=== PATIENT | male | born 1955 | race Caucasian/White ===

== ENCOUNTER → 2018-04-24 14:15 | Outpatient (CLI) | payer MEDICARE, SELFPAY | PROVIDERS: Family Provider Family Medicine; PCP Family Medicine; Visit Provider Urology | DX: R97.20 Elevated prostate specific antigen [PSA] (principal) | CPT/HCPCS: 36415; 84153 ==

== ENCOUNTER → 2019-03-30 10:27 | Outpatient (CLI) | payer MEDICARE, SELFPAY ==
[2019-03-30 13:20] LABS: Prostate Specific Antigen 6.45 ng/mL (0.10-4.00)
== END ==
PROVIDERS: Family Provider Family Medicine; PCP Family Medicine; Visit Provider Urology
DX: R97.20 Elevated prostate specific antigen [PSA] (principal)
CPT/HCPCS: 36415; 84153

== ENCOUNTER 2019-09-18 17:53 | Emergency (ER) | payer MEDICARE, SELFPAY ==
--- NOTE | 2019-09-18 18:10 | ED.ABDPAIN ---
HPI - Abdominal Pain <Odilia Snow PA-C - Last Filed: 09/18/19 20:34> General Chief Complaint: Abdominal Pain Stated Complaint: RIGHT SIDE ABD PAIN Time Seen by Provider: 09/18/19 18:04 Source: patient Mode of arrival: Ambulatory Limitations: no limitations History of Present Illness HPI narrative: This 63-year-old gentleman comes to ED secondary to worsening abdominal pain. He states that this started this morning, he woke up with no appetite which is unusual, then noted some midline pain around 10:00 a.m. which spread down to the right lower quadrant a few hours later and he began to have some nausea. He states that he did not have a bowel movement yesterday (had a normal 1 Tuesday), and thought that he was constipated as he felt full when he woke up. He had taken some Flexeril a couple of days prior and that tends to constipate him. He did take a Dulcolax yesterday. He states that this afternoon he did have 3 small bowel movements which were soft. He has not vomited. He denies any fever today. He denies any chest pain or dyspnea. No cough or recent illness. He denies any new pain or swelling in his extremities. He states he has ongoing BPH symptoms but denies any acute urinary symptoms. He is visually impaired, does not think he would see blood in his stool or urine. Related Data Home Medications Medication Instructions Recorded Confirmed cholecalciferol (vitamin D3) 2,000 unit PO QDAY #0 11/29/12 09/11/19 [Vitamin D3] Previous Rx's Medication Instructions Recorded lidocaine HCl [Lidocaine Viscous] 10 ml PO Q6HP PRN #100 ml 12/05/17 buspirone 30 mg tablet See Rx Instructions .ROUTE 07/31/19 .COMPLEX #90 tablet clonazepam 1 mg tablet See Rx Instructions PO BIDP PRN 09/11/19 #60 tab codeine sulfate 30 mg tablet 30 mg PO TID PRN #90 tab 09/11/19 cyclobenzaprine 10 mg tablet 10 mg PO TID #30 tab 09/11/19 tamsulosin 0.4 mg capsule 0.4 mg PO BID #120 cap 09/11/19 prednisone 40 mg PO DAILY 7 Days #30 tab 09/18/19 Allergies Allergy/AdvReac Type Severity Reaction Status Date / Time escitalopram [ESCITALOPRAM] Allergy Mild NAUSEA Verified 09/18/19 18:21 ibuprofen [IBUPROFEN] Allergy Mild NAUSEA Verified 09/18/19 18:21 PAIN CONTRACT Allergy Unknown Uncoded 09/18/19 18:21 Review of Systems <Odilia Snow PA-C - Last Filed: 09/18/19 20:34> Review of Systems ROS Unobtainable: All systems reviewed & are unremarkable except as noted in HPI and below Patient History <Odilia Snow PA-C - Last Filed: 09/18/19 20:34> Medical History Anxiety (Chronic) Benign prostatic hyperplasia (Chronic) 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 HEENT: PERRL, EOMI, no scleral icterus NECK: Supple LUNGS: Clear to auscultation bilaterally. HEART: Rate and rhythm regular, normal S1 and S2, no S3 or S4. ABDOMEN: Soft, nondistended, bowel sounds present x 4 quadrants, no masses palpable, no hepatosplenomegaly. Tender from the epigastrium distal, increased over the right lower quadrant especially around McBurney's point, no guarding or rebound. No upper quadrant or CVAT EXTREMITIES: No edema, no calf tenderness DERMATOLOGIC: No jaundice or exanthem NEUROLOGIC: Alert and oriented with normal speech and coordination Initial Vital Signs Initial Vital Signs: Vital Signs Temperature 98.4 F 09/18/19 18:21 Pulse Rate 104 H 09/18/19 18:21 Respiratory Rate 16 09/18/19 18:21 Blood Pressure 145/105 H 09/18/19 18:21 Pulse Oximetry 97 09/18/19 18:21 <Cayla Horn DO - Last Filed: 09/19/19 03:17> Initial Vital Signs Initial Vital Signs: Vital Signs Temperature 98.4 F 09/18/19 18:21 Pulse Rate 104 H 09/18/19 18:21 Respiratory Rate 16 09/18/19 18:21 Blood Pressure 145/105 H 09/18/19 18:21 Pulse Oximetry 97 09/18/19 18:21 Course <Odilia Snow PA-C - Last Filed: 09/18/19 20:34> Course Additional Information: Reviewed CT findings with patient. He has not had similar symptoms in the past. No known exposures or evidence of infectious source, so he is in agreement with trial of prednisone, which he has taken in the past without problems. Given 1st dose this evening and he will pick more up at the pharmacy tomorrow. He states he has pain medication at home if needed but does not feel like he needs this now. He agreed to return if any acutely worsening symptoms or new symptoms such as protracted vomiting or fever. Otherwise advised short-term follow-up with PCP, preferably tomorrow but if not in the next few days to assess progress, and determine taper schedule versus changing to antibiotic as well as discuss referral for colonoscopy. In addition, reviewed finding of coincidental lung nodule noted on CT, and advised follow-up with PCP on this to schedule monitoring of this as well. He is agreeable. Review exam, lab and CT findings with attending Dr. Horn who is in agreement. Orders Ordered: ED Orders 09/18/19 18:20 Complete Blood Count AUTO DIFF Stat Comprehensive Metabolic Panel Stat Lipase Stat Partial Thromboplastin Time Stat Prothrombin Time INR Stat 09/18/19 18:42 CT abdomen pelvis w con Stat 09/18/19 19:05 Urine Microscopic Stat Discontinued Medications Sodium Chloride (Normal Saline 0.9%) 1,000 mls @ 1,000 mls/hr IV BOLUS ONE Stop: 09/18/19 20:08 Last Infusion: 09/18/19 20:31 Dose: 1,000 mls/hr Documented by: Admin: 09/18/19 19:26 Dose: 1,000 mls/hr Documented by: JEROME Ketorolac Tromethamine (Toradol) 30 mg IV NOW ONE Stop: 09/18/19 19:10 Last Admin: 09/18/19 19:25 Dose: 30 mg Documented by: JEROME Ondansetron HCl (Zofran) 4 mg IV NOW ONE Stop: 09/18/19 19:10 Last Admin: 09/18/19 19:25 Dose: 4 mg Documented by: JEROME Prednisone (Deltasone) 40 mg PO NOW ONE Stop: 09/18/19 20:20 Last Admin: 09/18/19 20:23 Dose: 40 mg Documented by: CIARA Vital Signs Vital signs: Vital Signs - 8 hr 09/18/19 18:21 09/18/19 19:09 Temperature 98.4 F Pulse Rate 104 H 102 H Respiratory Rate 16 Blood Pressure 145/105 H Blood Pressure [Left Arm] 128/89 Pulse Oximetry 97 99 <Cayla Horn, - Last Filed: 09/19/19 03:17> Orders Ordered: ED Orders 09/18/19 18:20 Complete Blood Count AUTO DIFF Stat Comprehensive Metabolic Panel Stat Lipase Stat Partial Thromboplastin Time Stat Prothrombin Time INR Stat 09/18/19 18:42 CT abdomen pelvis w con Stat 09/18/19 19:05 Urine Microscopic Stat Discontinued Medications Sodium Chloride (Normal Saline 0.9%) 1,000 mls @ 1,000 mls/hr IV BOLUS ONE Stop: 09/18/19 20:08 Last Infusion: 09/18/19 20:31 Dose: 1,000 mls/hr Documented by: Admin: 09/18/19 19:26 Dose: 1,000 mls/hr Documented by: JEROME Ketorolac Tromethamine (Toradol) 30 mg IV NOW ONE Stop: 09/18/19 19:10 Last Admin: 09/18/19 19:25 Dose: 30 mg Documented by: JEROME Ondansetron HCl (Zofran) 4 mg IV NOW ONE Stop: 09/18/19 19:10 Last Admin: 09/18/19 19:25 Dose: 4 mg Documented by: JEROME Prednisone (Deltasone) 40 mg PO NOW ONE Stop: 09/18/19 20:20 Last Admin: 09/18/19 20:23 Dose: 40 mg Documented by: CIARA Vital Signs Vital signs: Vital Signs - 8 hr 09/18/19 18:21 09/18/19 19:09 Temperature 98.4 F Pulse Rate 104 H 102 H Respiratory Rate 16 Blood Pressure 145/105 H Blood Pressure [Left Arm] 128/89 Pulse Oximetry 97 99 MDM - Abdominal Pain <Odilia Snow PA-C - Last Filed: 09/18/19 20:34> Lab Data Result diagrams: 09/18/19 18:20 09/18/19 18:20 Labs: Lab Results 09/18/19 09/18/19 09/18/19 Range/Units 18:20 18:20 18:20 WBC 13.0 H (4.5-11.0) X10^3/uL RBC 5.33 (4.5-5.9) X10^6/uL Hgb 16.3 (13.5-17.5) g/dL Hct 48.9 (41-53) % MCV 91.7 (80-100) fL MCH 30.5 (26-34) PG MCHC 33.2 (30-36) % RDW 14.1 (11.6-14.8) % Plt Count 285 (150-400) X10^3/uL Neut % (Auto) 79.6 H (50-75) % Lymph % (Auto) 13.3 L (25-40) % Mcmullen % (Auto) 5.6 (3-14) % Eos % (Auto) 0.8 L (2-4) % Baso % (Auto) 0.7 (0-2) % Neut # (Auto) 13869 H (3147-7013) /uL Lymph # (Auto) 1700 (5914-3902) /uL [place]ullen # (Auto) 700 (0-900) /uL Eos # (Auto) 100 (0-450) /uL Baso # (Auto) 100 (0-100) /uL PT 11.1 (10.1-12.7) SECONDS INR 1.0 (0.9-1.3) APTT 31 (26.4-36.2) SECONDS Sodium 136 L (137-145) mmol/L Potassium 4.2 (3.4-5.1) mmol/L Chloride 102 (98-107) mmol/L Carbon Dioxide 28 (22-32) mmol/L BUN 16 (9-20) mg/dL Creatinine 1.00 (0.66-1.25) mg/dL Estimated GFR > 60.0 (>60) mL/min BUN/Creatinine Ratio 16.0 (6-22) Glucose 115 H (80-110) mg/dL Calcium 9.6 (8.4-10.2) mg/dL Total Bilirubin 0.6 (0.2-1.3) mg/dL AST 21 (17-59) IU/L ALT 17 (<50) IU/L Alkaline Phosphatase 58 (38-126) U/L Total Protein 7.5 (6.3-8.2) g/dL Albumin 4.6 (3.5-5.0) g/dL Globulin 2.9 (1.7-4.1) g/dL Albumin/Globulin Ratio 1.6 (1.0-2.8) Lipase 100 (23-300) U/L Urine RBC (0-5/HPF) Urine WBC (0-5/HPF) Ur Squamous Epith Cells (0-5/HPF) Amorphous Sediment Urine Bacteria (None) Ur Culture Indicated? 09/18/19 Range/Units 19:05 WBC (4.5-11.0) X10^3/uL RBC (4.5-5.9) X10^6/uL Hgb (13.5-17.5) g/dL Hct (41-53) % MCV (80-100) fL MCH (26-34) PG MCHC (30-36) % RDW (11.6-14.8) % Plt Count (150-400) X10^3/uL Neut % (Auto) (50-75) % Lymph % (Auto) (25-40) % Mcmullen % (Auto) (3-14) % Eos % (Auto) (2-4) % Baso % (Auto) (0-2) % Neut # (Auto) (6040-1194) /uL Lymph # (Auto) (2890-3064) /uL Mcmullen # (Auto) (0-900) /uL Eos # (Auto) (0-450) /uL Baso # (Auto) (0-100) /uL PT (10.1-12.7) SECONDS INR (0.9-1.3) APTT (26.4-36.2) SECONDS Sodium (137-145) mmol/L Potassium (3.4-5.1) mmol/L Chloride (98-107) mmol/L Carbon Dioxide (22-32) mmol/L BUN (9-20) mg/dL Creatinine (0.66-1.25) mg/dL Estimated GFR (>60) mL/min BUN/Creatinine Ratio (6-22) Glucose (80-110) mg/dL Calcium (8.4-10.2) mg/dL Total Bilirubin (0.2-1.3) mg/dL AST (17-59) IU/L ALT (<50) IU/L Alkaline Phosphatase (38-126) U/L Total Protein (6.3-8.2) g/dL Albumin (3.5-5.0) g/dL Globulin (1.7-4.1) g/dL Albumin/Globulin Ratio (1.0-2.8) Lipase (23-300) U/L Urine RBC 0-1/hpf (0-5/HPF) Urine WBC 0-1/hpf (0-5/HPF) Ur Squamous Epith Cells 0-1 /hpf (0-5/HPF) Amorphous Sediment 1+ Urine Bacteria None seen (None) Ur Culture Indicated? Cult not indicated Point of care testing: Urine Dip Bedside Urine Glucose Negative Bedside Urine Bilirubin - Negative Bedside Urine Ketone + 15 Urine Specific [place] 1.010 Bedside Urine Occult Blood + Bedside Urine pH 6.0 Bedside Urine Protein - Negative Bedside Urine Urobilinogen - Negative Bedside Urine Nitrite - Negative Bedside Urine Leukocytes - Negative Esterase <Cayla Horn, DO - Last Filed: 09/19/19 03:17> Lab Data Attestation: I reviewed the patient's lab results. Labs: Lab Results 09/18/19 09/18/19 09/18/19 Range/Units 18:20 18:20 18:20 WBC 13.0 H (4.5-11.0) X10^3/uL RBC 5.33 (4.5-5.9) X10^6/uL Hgb 16.3 (13.5-17.5) g/dL Hct 48.9 (41-53) % MCV 91.7 (80-100) fL MCH 30.5 (26-34) PG MCHC 33.2 (30-36) % RDW 14.1 (11.6-14.8) % Plt Count 285 (150-400) X10^3/uL Neut % (Auto) 79.6 H (50-75) % Lymph % (Auto) 13.3 L (25-40) % Mcmullen % (Auto) 5.6 (3-14) % Eos % (Auto) 0.8 L (2-4) % Baso % (Auto) 0.7 (0-2) % Neut # (Auto) 45203 H (1451-0869) /uL Lymph # (Auto) 1700 (6358-6318) /uL Mcmullen # (Auto) 700 (0-900) /uL Eos # (Auto) 100 (0-450) /uL Baso # (Auto) 100 (0-100) /uL PT 11.1 (10.1-12.7) SECONDS INR 1.0 (0.9-1.3) APTT 31 (26.4-36.2) SECONDS Sodium 136 L (137-145) mmol/L Potassium 4.2 (3.4-5.1) mmol/L Chloride 102 (98-107) mmol/L Carbon Dioxide 28 (22-32) mmol/L BUN 16 (9-20) mg/dL Creatinine 1.00 (0.66-1.25) mg/dL Estimated GFR > 60.0 (>60) mL/min BUN/Creatinine Ratio 16.0 (6-22) Glucose 115 H (80-110) mg/dL Calcium 9.6 (8.4-10.2) mg/dL Total Bilirubin 0.6 (0.2-1.3) mg/dL AST 21 (17-59) IU/L ALT 17 (<50) IU/L Alkaline Phosphatase 58 (38-126) U/L Total Protein 7.5 (6.3-8.2) g/dL Albumin 4.6 (3.5-5.0) g/dL Globulin 2.9 (1.7-4.1) g/dL Albumin/Globulin Ratio 1.6 (1.0-2.8) Lipase 100 (23-300) U/L Urine RBC (0-5/HPF) Urine WBC (0-5/HPF) Ur Squamous Epith Cells (0-5/HPF) Amorphous Sediment Urine Bacteria (None) Ur Culture Indicated? 09/18/19 Range/Units 19:05 WBC (4.5-11.0) X10^3/uL RBC (4.5-5.9) X10^6/uL Hgb (13.5-17.5) g/dL Hct (41-53) % MCV (80-100) fL MCH (26-34) PG MCHC (30-36) % RDW (11.6-14.8) % Plt Count (150-400) X10^3/uL Neut % (Auto) (50-75) % Lymph % (Auto) (25-40) % Mcmullen % (Auto) (3-14) % Eos % (Auto) (2-4) % Baso % (Auto) (0-2) % Neut # (Auto) (4196-1807) /uL Lymph # (Auto) (1489-9482) /uL Mcmullen # (Auto) (0-900) /uL Eos # (Auto) (0-450) /uL Baso # (Auto) (0-100) /uL PT (10.1-12.7) SECONDS INR (0.9-1.3) APTT (26.4-36.2) SECONDS Sodium (137-145) mmol/L Potassium (3.4-5.1) mmol/L Chloride (98-107) mmol/L Carbon Dioxide (22-32) mmol/L BUN (9-20) mg/dL Creatinine (0.66-1.25) mg/dL Estimated GFR (>60) mL/min BUN/Creatinine Ratio (6-22) Glucose (80-110) mg/dL Calcium (8.4-10.2) mg/dL Total Bilirubin (0.2-1.3) mg/dL AST (17-59) IU/L ALT (<50) IU/L Alkaline Phosphatase (38-126) U/L Total Protein (6.3-8.2) g/dL Albumin (3.5-5.0) g/dL Globulin (1.7-4.1) g/dL Albumin/Globulin Ratio (1.0-2.8) Lipase (23-300) U/L Urine RBC 0-1/hpf (0-5/HPF) Urine WBC 0-1/hpf (0-5/HPF) Ur Squamous Epith Cells 0-1 /hpf (0-5/HPF) Amorphous Sediment 1+ Urine Bacteria None seen (None) Ur Culture Indicated? Cult not indicated Point of care testing: Urine Dip Bedside Urine Glucose Negative Bedside Urine Bilirubin - Negative Bedside Urine Ketone + 15 Urine Specific [place] 1.010 Bedside Urine Occult Blood + Bedside Urine pH 6.0 Bedside Urine Protein - Negative Bedside Urine Urobilinogen - Negative Bedside Urine Nitrite - Negative Bedside Urine Leukocytes - Negative Esterase MDM Narrative Medical decision making narrative: Case was discussed, patient has mildly elevated wbc, no fever and no clear signs of infectious colitis. Discussed and elected to offer patient steroids for colitis for treatment. Patient given return precautions and to follow up with pcp. Also discussed patient will need colonscopy in future after symptoms improve. Discharge Plan Departure Patient Disposition: Home Clinical Impression: Colitis Discharge Date/Time: 09/18/19 20:20 Instructions: DI for Colitis Activity Restrictions/Additional Instructions: Your CT scan today shows nonspecific inflammation in your lower bowel. Is not clear whether this is an infectious source versus some other type of inflammation. After discussion, we have decided to try prednisone for this. 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 You should start feeling better in the next few days if this is going to be helpful. If you are feeling worse or have new symptoms such as fever, you should return to the ED. You should also arrange to see your PCP preferably tomorrow but if not in the next few days so that you can change treatment if you're not feeling better. You may also benefit from a referral for a colonoscopy to evaluate this further. In addition, it was noted coincidentally that you have a small lung nodule on your scan today. These are frequent findings, so please talk to your PCP about doing follow-up for this at some point. Prescriptions: New prednisone 20 mg tablet 40 mg PO DAILY 7 Days Qty: 30 RF: 0 No Action cyclobenzaprine 10 mg tablet 10 mg PO TID Qty: 30 RF: 3 codeine sulfate 30 mg tablet 30 mg PO TID PRN (Reason: knee pain) Qty: 90 RF: 0 tamsulosin [Flomax] 0.4 mg capsule 0.4 mg PO BID Qty: 120 RF: 0 cholecalciferol (vitamin D3) [Vitamin D3] 2,000 UNIT capsule 2,000 unit PO QDAY Qty: 0 RF: 0 lidocaine HCl [Lidocaine Viscous] 100 ML solution 10 ml PO Q6HP PRNQty: 100 RF: 0 buspirone 30 mg tablet See Rx Instructions .ROUTE .COMPLEX Qty: 90 RF: 2 clonazepam [Klonopin] 1 mg tablet See Rx Instructions PO BIDP PRN (Reason: anxiety) Qty: 60 RF: 2 Referrals: Katia Cid DO [Primary Care Provider] -
[2019-09-18 18:21] VITALS: BP 145/105; PULSE 104; RESP 16; TEMP 36.9; O2SAT 97; BMI 25.8
[2019-09-18 18:30] LABS: Add Manual Diff / Slide Review NO; Basophils Absolute Auto 100 /uL (0-100); Basophils Percent Auto 0.7 % (0-2); Eosinophils Absolute Auto 100 /uL (0-450); Eosinophils Percent Auto 0.8 % (2-4); Hematocrit 48.9 % (41-53); Hemoglobin 16.3 g/dL (13.5-17.5); Lymphocytes Absolute Auto 1700 /uL (1100-4500); Lymphocytes Percent Auto 13.3 % (25-40); Mean Corpuscular HGB Conc 33.2 % (30-36); Mean Corpuscular Hemoglobin 30.5 PG (26-34); Mean Corpuscular Volume 91.7 fL (80-100); Monocytes Absolute Auto 700 /uL (0-900); Monocytes Percent Auto 5.6 % (3-14); Neutrophils Absolute Auto 10400 /uL (1500-7000); Neutrophils Percent Auto 79.6 % (50-75); Platelet Count 285 X10^3/uL (150-400); Red Blood Cell Count 5.33 X10^6/uL (4.5-5.9); Red Cell Distribution Width 14.1 % (11.6-14.8)
[2019-09-18 18:33] LABS: Prothrombin Time 11.1 SECONDS (10.1-12.7)
[2019-09-18 18:36] LABS: PTT Partial Thromboplastin Tim 31 SECONDS (26.4-36.2)
[2019-09-18 18:37] LABS: Alanine Aminotransferase 17 IU/L (<50); Albumin 4.6 g/dL (3.5-5.0); Albumin Globulin Ratio 1.6 (1.0-2.8); Alkaline Phosphatase 58 U/L (38-126); Aspartate Aminotransferase 21 IU/L (17-59); Bilirubin Total 0.6 mg/dL (0.2-1.3); Blood Urea Nitrogen 16 mg/dL (9-20); Calcium 9.6 mg/dL (8.4-10.2); Carbon Dioxide 28 mmol/L (22-32); Chloride 102 mmol/L (98-107); Estimated Glomerular Filt Rate > 60.0 mL/min (>60); Globulin 2.9 g/dL (1.7-4.1); Glucose 115 mg/dL (80-110); HEMOLYSIS 24 (0-50); Lipase 100 U/L (23-300); Potassium 4.2 mmol/L (3.4-5.1); Sodium 136 mmol/L (137-145); Total Protein 7.5 g/dL (6.3-8.2)
--- NOTE | 2019-09-18 18:42 | DI.CT.S_ITS ---
PROCEDURE: CT ABDOMEN PELVIS W CON INDICATIONS: midline and RLQ pain TECHNIQUE: After the administration of intravenous contrast, 5 mm thick sections acquired from the diaphragm to the symphysis. 5 mm coronal and sagittal reformats were acquired. For radiation dose reduction, the following was used: automated exposure control, adjustment of mA and/or kV according to patient size. COMPARISON: None. FINDINGS: Image quality: Excellent. ABDOMEN: Lung bases: 6 mm right lower lobe nodule is present on series 5 image 5. Solid organs: Liver is normal in size and enhancement. Gallbladder is unremarkable. Biliary system is non dilated. Pancreas enhances normally. Spleen is normal in size and enhancement. No adrenal nodules. Kidneys demonstrate normal size and enhancement, without hydronephrosis. Right renal cyst is noted. Peritoneum and bowel: Portions of the ascending and transverse colon demonstrate thickening. Minimal appearance of surrounding inflammatory change is present. In addition, there is a small focus of stranding within the mesenteric fat of the right lower quadrant. Nodes and vessels: No retroperitoneal or mesenteric adenopathy by size criteria. Aorta and inferior vena cava are normal in size. Miscellaneous: No ventral hernias. PELVIS: Genitourinary: Bladder wall is diffusely thickened. Prostate gland is markedly enlarged. Miscellaneous: No inguinal hernias or adenopathy. Bones: No suspicious bony lesions. No vertebral body compression fractures. IMPRESSION: 1. Mild appearance of thickening and pericolonic inflammatory change within the ascending and transverse colon. Findings are suggestive of colitis. 2. Mild focus of stranding within the mesenteric fat in the right lower quadrant, overall nonspecific and suggestive of inflammation. The appendix is not visualized. 3. 6 mm right lower lobe nodule. No priors are available for comparison. Recommend interval followup is below, as is nonspecific. Fleischner Society criteria for SOLID lung nodule followup. Nodule size (mm)Low-risk patientHigh-risk patient<6 (single or multiple)No routine followup.Optional CT at 12 months. 6-8 (single or multiple)CT at 6-12 months, then optional CT at 18-24 mo.CT at 6-12 [address], [address] CT at 18-24 months. >8 (single)CT, PET-CT, or biopsy at 3 months. Same as for low-risk pts. >8 (multiple)CT at 3-6 months, then optional CT at 18-24 mo.CT at 3-6 months, then CT at 18-24 months. Recommendations do not apply to lung cancer screening, patients with immunosuppression, or patients with known primary cancer. Dictated by: Charisse Spencer M.D. on 09/18/2019 at 19:46 Approved by: Charisse Spencer M.D. on 09/18/2019 at 19:51
[2019-09-18 19:09] VITALS: BP 128/89; PULSE 102; O2SAT 99
[2019-09-18] MEDS: ONDANSETRON 4 MG/2 ML INJ IV (19:25)
[2019-09-18] MEDS: KETOROLAC 60 MG/2 ML VIAL 30 MG IV (19:25)
[2019-09-18] MEDS: SODIUM CHLORIDE 0.9% 1,000 ML 1000 ML IV (19:26)
[2019-09-18 19:40] LABS: Bacteria Urine None Seen
[2019-09-18 19:50] LABS: Amorphous Sediment Urine 1+; Culture Indicated Urine Cult Not Indicated; RBC Urine 0-1/HPF (0-5/HPF); Squamous Epithelial Cell Urine 0-1 /HPF (0-5/HPF); WBC Urine 0-1/HPF (0-5/HPF)
[2019-09-18] MEDS: predniSONE 20 MG TABLET 40 MG PO (20:23)
== END 2019-09-18 20:20 | disposition home or self-care (01) ==
PROVIDERS: Emergency Provider Internal Medicine; Family Provider Family Medicine; PCP Family Medicine
DX: K52.9 Noninfective gastroenteritis and colitis, unspecified (principal); R11.0 Nausea; R79.89 Other specified abnormal findings of blood chemistry
CPT/HCPCS: 36415; 74177; 80053; 81003; 81015; 83690; 85025; 85610; 85730; 96361; 96374; 96375; 99283; 99284; J1885; J2405; Q9967

== ENCOUNTER → 2020-03-28 10:19 | Outpatient (CLI) | payer MEDICARE, SELFPAY ==
[2020-03-28 12:44] LABS: Prostate Specific Antigen 6.27 ng/mL (0.10-4.00)
== END ==
PROVIDERS: Family Provider Family Medicine; PCP Family Medicine; Referring Provider Urology; Visit Provider Urology
DX: R97.20 Elevated prostate specific antigen [PSA] (principal)
CPT/HCPCS: 36415; 84153

== ENCOUNTER → 2021-05-19 15:20 | Outpatient (CLI) | payer MEDICARE, SELFPAY | PROVIDERS: Family Provider Family Medicine; PCP Family Medicine; Visit Provider Physician Assistant | DX: R35.0 Frequency of micturition (principal) | CPT/HCPCS: 87086 ==

== ENCOUNTER 2021-05-19 16:06 | Emergency (ER) | payer MEDICARE, SELFPAY ==
[2021-05-19 16:17] VITALS: BP 130/89; PULSE 112; RESP 18; TEMP 36.8; O2SAT 96; BMI 24.6
[2021-05-19 16:27] LABS: Add Manual Diff / Slide Review NO; Basophils Absolute Auto 100 /uL (0-100); Basophils Percent Auto 1.1 % (0-2); Eosinophils Absolute Auto 200 /uL (0-450); Eosinophils Percent Auto 2.2 % (2-4); Hematocrit 48.8 % (41-53); Lymphocytes Absolute Auto 2300 /uL (1100-4500); Lymphocytes Percent Auto 28.1 % (25-40); Mean Corpuscular HGB Conc 32.9 % (30-36); Mean Corpuscular Hemoglobin 30.3 PG (26-34); Mean Corpuscular Volume 92.1 fL (80-100); Monocytes Absolute Auto 600 /uL (0-900); Monocytes Percent Auto 7.2 % (3-14); Neutrophils Absolute Auto 5100 /uL (1500-7000); Neutrophils Percent Auto 61.4 % (50-75); Platelet Count 290 X10^3/uL (150-400); Red Cell Distribution Width 13.8 % (11.6-14.8); White Blood Cell Count 8.3 X10^3/uL (4.5-11.0)
--- NOTE | 2021-05-19 16:28 | ED.ABDPAIN ---
HPI - Abdominal Pain General Chief Complaint: Abdominal Pain Stated Complaint: sent by [facility] Time Seen by Provider: 05/19/21 16:12 Source: patient Mode of arrival: Ambulatory Limitations: physical limitation History of Present Illness HPI narrative: 65-year-old male daily smoker with history of prostatitis, blindness presents at the request of the walk-in clinic for evaluation of frequent urination, lower abdominal pain, diarrhea, chills and poor appetite. He has become fatigued, dizzy and lightheaded, particularly with exertion. When at the walk-in clinic he is heart rate was in the 120s with exertion, this seems to improve with rest. He denies any obvious provocation, palliation or radiation of the discomfort Related Data Home Medications Medication Instructions Recorded Confirmed cholecalciferol (vitamin D3) 50 2,000 unit PO QDAY #0 11/29/12 05/19/21 mcg (2,000 unit) capsule (Vitamin D3) Previous Rx's Medication Instructions Recorded lidocaine HCl 2 % mucosal solution 10 ml PO Q6HP PRN #100 ml 12/05/17 (Lidocaine Viscous) tamsulosin 0.4 mg capsule (Flomax) 0.4 mg PO BID #120 cap 09/11/19 buspirone 30 mg tablet See Rx Instructions .ROUTE 12/04/20 .COMPLEX #90 tablet codeine sulfate 30 mg tablet 30 mg PO TID PRN #90 tab 03/13/21 hydrocodone 5 mg-acetaminophen 325 1 tab PO BEDTIME PRN #25 tab 03/13/21 mg tablet hydrocodone 5 mg-acetaminophen 325 See Rx Instructions .ROUTE 03/13/21 mg tablet .COMPLEX #25 tab cyclobenzaprine 10 mg tablet 10 mg PO TID #30 tab 04/06/21 clonazepam 1 mg tablet (Klonopin) 1 mg PO BIDP PRN #60 tab 04/08/21 hyoscyamine sulfate 0.125 mg tablet 0.125 mg PO BID-QID PRN #20 tab 05/19/21 ondansetron 4 mg disintegrating 4 mg PO TID-QID PRN #10 tab 05/19/21 tablet Allergies Allergy/AdvReac Type Severity Reaction Status Date / Time escitalopram [ESCITALOPRAM] Allergy Mild NAUSEA Verified 05/19/21 16:17 ibuprofen [IBUPROFEN] Allergy Mild NAUSEA Verified 05/19/21 16:17 PAIN CONTRACT Allergy Unknown Uncoded 05/19/21 15:35 Review of Systems Review of Systems Narrative: GENERAL: See HPI HEENT: Denies sinus pain, ear pain, sore throat, difficulty swallowing, dizziness. RESPIRATORY: Denies dyspnea, cough, wheezing, hemoptysis, sputum. CARDIOVASCULAR: Denies chest pain, palpitations, orthopnea, edema, GASTROINTESTINAL: See HPI : See HPI MUSCULOSKELETAL: denies weakness, joint pain, or bony pain SKIN: Denies rash, skin lesions, or other NEUROLOGIC: Denies weakness, headache, numbness, change in speech, confusion, seizures, incoordination. PSYCHIATRIC: No concerning psychosocial issues. 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 Well-developed patient, in mild distress. HEAD: Atraumatic. Normocephalic. EYES: Pupils equal round and reactive. Extraocular motions intact. No scleral icterus. No injection or drainage. ENT: Nose without bleeding, purulent drainage. Throat without erythema, tonsillar hypertrophy or exudate. Airway patent. NECK: Trachea midline. Non tender CARDIOVASCULAR: Tachycardic but regular rhythm without murmurs, gallops, or rubs. RESPIRATORY: Clear to auscultation. Breath sounds equal bilaterally. No wheezes, rales, or rhonchi. GASTROINTESTINAL: Abdomen soft, mild tenderness in the lower portions of the abdomen, left greater than right nondistended. EXTREMITIES: No edema or joint tenderness. BACK: Nontender without deformity or crepitance. No flank tenderness. NEURO: AOx3. SKIN: No rash or erythema of visible areas Initial Vital Signs Initial Vital Signs: Vital Signs Temperature 98.3 F 05/19/21 16:17 Pulse Rate 112 H 05/19/21 16:17 Respiratory Rate 18 05/19/21 16:17 Blood Pressure 130/89 05/19/21 16:17 Pulse Oximetry 96 05/19/21 16:17 Course Orders Ordered: ED Orders 05/19/21 16:17 Complete Blood Count AUTO DIFF Stat Comprehensive Metabolic Panel Stat Lipase Stat 05/19/21 16:20 EKG-12 Lead Stat 05/19/21 16:28 CT abdomen pelvis w con Stat Discontinued Medications Sodium Chloride (Normal Saline 0.9%) 1,000 mls @ 1,000 mls/hr IV BOLUS ONE Stop: 05/19/21 17:27 Last Infusion: 05/19/21 18:08 Dose: 0 mls/hr Documented by: Admin: 05/19/21 16:34 Dose: 1,000 mls/hr Documented by: CTRLILIANA Vital Signs Vital signs: Vital Signs - 8 hr 05/19/21 16:17 Temperature 98.3 F Pulse Rate 112 H Respiratory Rate 18 Blood Pressure 130/89 Pulse Oximetry 96 MDM - Abdominal Pain Lab Data Result diagrams: 05/19/21 16:17 05/19/21 16:17 Labs: Lab Results 05/19/21 05/19/21 Range/Units 16:17 16:17 WBC 8.3 (4.5-11.0) X10^3/uL RBC 5.30 (4.5-5.9) X10^6/uL Hgb 16.0 (13.5-17.5) g/dL Hct 48.8 (41-53) % MCV 92.1 (80-100) fL MCH 30.3 (26-34) PG MCHC 32.9 (30-36) % RDW 13.8 (11.6-14.8) % Plt Count 290 (150-400) X10^3/uL Neut % (Auto) 61.4 (50-75) % Lymph % (Auto) 28.1 (25-40) % Gibson % (Auto) 7.2 (3-14) % Eos % (Auto) 2.2 (2-4) % Baso % (Auto) 1.1 (0-2) % Neut # (Auto) 5100 (2820-2106) /uL Lymph # (Auto) 2300 (1534-0387) /uL Gibson # (Auto) 600 (0-900) /uL Eos # (Auto) 200 (0-450) /uL Baso # (Auto) 100 (0-100) /uL Sodium 139 (137-145) mmol/L Potassium 4.1 (3.4-5.1) mmol/L Chloride 108 H (98-107) mmol/L Carbon Dioxide 24 (22-32) mmol/L BUN 13 (9-20) mg/dL Creatinine 1.04 (0.66-1.25) mg/dL Estimated GFR > 60.0 (>60) mL/min BUN/Creatinine Ratio 12.5 (6-22) Glucose 117 H (80-110) mg/dL Calcium 9.9 (8.4-10.2) mg/dL Total Bilirubin 0.5 (0.2-1.3) mg/dL AST 21 (17-59) IU/L ALT 22 (<50) IU/L Alkaline Phosphatase 54 (38-126) U/L Total Protein 7.5 (6.3-8.2) g/dL Albumin 4.6 (3.5-5.0) g/dL Globulin 2.9 (1.7-4.1) g/dL Albumin/Globulin Ratio 1.6 (1.0-2.8) Lipase 121 (23-300) U/L Imaging Data CT scan - abdomen/pelvis: Radiologist's Impression: Nate Cohen M 1955 [address] [id number] Scan ReportSigned Patient: Nate Cohen [facility]#: [id number]: 5Acct:[id number]/Sex: 65 / MDate of Service: 05/19/21Loc: EDAccession Number: [id number] Procedure: CT abdomen pelvis w con Ordering Provider: King Mai D.O. PROCEDURE: CT ABDOMEN PELVIS W CON INDICATIONS: severe lower abdominal pain, diarrhea, tachycardia TECHNIQUE: After the administration of intravenous contrast, axial sections acquired from the lung bases to the pubic symphysis. Coronal and sagittal reformats were performed. For radiation dose reduction, the following was used: automated exposure control, adjustment of mA and/or kV according to patient size. COMPARISON: [facility], CT, CT ABDOMEN PELVIS W CON, 09/18/2019, 18:56. FINDINGS: Image quality: Excellent. Lung bases: There is a 6 mm nodule in the right lower lobe, unchanged in size compared to 09/18/2019. Small hiatal hernia. Heart: No significant findings. ABDOMEN: Liver: Liver is normal in size. Moderate hepatic steatosis. Gallbladder: Unremarkable. Biliary ducts: Unremarkable. Pancreas: Unremarkable. Spleen: Unremarkable. Adrenal Glands: Bilateral adrenal thickening without discrete nodules. Kidneys and Ureters: Unremarkable. Stomach and Bowel: Stomach, small bowel loops, and colon are normal in caliber. There are sigmoid diverticula. No CT findings to suggest acute diverticulitis. Peritoneum: No abnormal intraperitoneal fluid. No free air. Ventral Wall: There is a tiny fat containing umbilical hernia. Abdominal Nodes: No retroperitoneal or mesenteric adenopathy by size criteria. Vessels: Aorta and inferior vena cava are normal in size. PELVIS: Pelvic Organs: Prostate is enlarged. Bladder: There is a 5 mm stone within the dependent bladder lumen at midline. Pelvic Nodes: No enlarged lymph nodes. Miscellaneous: No hernias are seen. Bones: There is grade 1 anterolisthesis of L5 on S1 secondary to bilateral L5 pars defects. Mild levoscoliosis. Degenerative changes are noted in lumbar spine. IMPRESSION: 1. Mild sigmoid diverticulosis. No diverticulitis. 2. A 5 mm stone in the dependent bladder lumen. No kidney stones or ureteral stones. No hydronephrosis. 3. A 6 mm nodule in the right lower lobe, unchanged since 09/18/2019. Please see enclosed follow-up recommendation. 4. Hepatic steatosis. 5. Enlarged prostate. Fleischner Society criteria for SOLID lung nodule followup. Nodule size (mm)Low-risk patientHigh-risk patient?4No follow-up neededFollow-up at 12 mo; if no change, no further follow-up>1-8Pdesps-rr CT at 12 mo; if no change, no further follow-up needed.Initial follow-up CT at 6-12 mo, then 18-24 mo if no change. >6-8Initial follow-up CT at 6-12 mo, then 18-24 mo if no change. Initial follow-up CT at 3-6 mo, then 9-12 mo and 24 mo if no change. >8Follow-up CT at 3, 9, 24 mo. Or PET and/or biopsy.Same as for low-risk pts. Dictated by: Daphne Moreno M.D. on 05/19/2021 at 17:13 Approved by: Daphne Moreno M.D. on 05/19/2021 at 17:22 Discharge Plan Departure Patient Disposition: Home Clinical Impression: Diarrhea, Abdominal pain Instructions: DI for Abdominal Pain-Adult Activity Restrictions/Additional Instructions: *You have been diagnosed with [crampy abdominal pain and diarrhea. Your blood work, urine and CT scan are very reassuring] *What to do: *Please continue to take your regular medications as directed. [x ] New medication prescriptions sent to your pharmacy: [[facility] ] [ ] New medication written as a paper prescription [ ] No new medications given *Please follow up with your primary care provider in 2-3 days, call for an appointment. Let them know you were seen in the Emergency Department and that we ask that you be seen in follow up. We will electronically transmit a record of today's note if your PCP is in our system *If you do not have a primary care provider please contact the [facility] Resource line at [phone]. They will ask some questions about your medical history and help get you set up with a doctor in the community. *Return to Emergency Department if you should have any new, worsening or concerning symptoms, such as [fever greater than 101 F, shaking chills, worsening pain, persistent vomiting or other bothersome symptoms] Prescriptions: New hyoscyamine sulfate 0.125 mg tablet 0.125 mg PO BID-QID PRN (Reason: dyspepsia) Qty: 20 RF: 0 ondansetron 4 mg tablet,disintegrating 4 mg PO TID-QID PRN (Reason: nausea and vomiting) Qty: 10 RF: 0 No Action buspirone 30 mg tablet See Rx Instructions .ROUTE .COMPLEX Qty: 90 RF: 3 tamsulosin [Flomax] 0.4 mg capsule 0.4 mg PO BID Qty: 120 RF: 0 cholecalciferol (vitamin D3) [Vitamin D3] 2,000 UNIT capsule 2,000 unit PO QDAY Qty: 0 RF: 0 lidocaine HCl [Lidocaine Viscous] 100 ML solution 10 ml PO Q6HP PRNQty: 100 RF: 0 hydrocodone-acetaminophen 5-325 mg tablet 1 tab PO BEDTIME PRN (Reason: pain) Qty: 25 RF: 0 hydrocodone-acetaminophen 5-325 mg tablet See Rx Instructions .ROUTE .COMPLEX Qty: 25 RF: 0 codeine sulfate 30 mg tablet 30 mg PO TID PRN (Reason: knee pain) Qty: 90 RF: 0 cyclobenzaprine 10 mg tablet 10 mg PO TID Qty: 30 RF: 3 clonazepam [Klonopin] 1 mg tablet 1 mg PO BIDP PRN (Reason: anxiety) Qty: 60 RF: 0 Referrals: Katia Cid DO [Primary Care Provider] -
[2021-05-19] MEDS: SODIUM CHLORIDE 0.9% 1,000 ML 1000 ML IV (16:34)
[2021-05-19 16:37] LABS: Alanine Aminotransferase 22 IU/L (<50); Albumin 4.6 g/dL (3.5-5.0); Albumin Globulin Ratio 1.6 (1.0-2.8); Alkaline Phosphatase 54 U/L (38-126); Aspartate Aminotransferase 21 IU/L (17-59); BUN Creatinine Ratio 12.5 (6-22); Bilirubin Total 0.5 mg/dL (0.2-1.3); Blood Urea Nitrogen 13 mg/dL (9-20); Calcium 9.9 mg/dL (8.4-10.2); Carbon Dioxide 24 mmol/L (22-32); Chloride 108 mmol/L (98-107); Estimated Glomerular Filt Rate > 60.0 mL/min (>60); Globulin 2.9 g/dL (1.7-4.1); Glucose 117 mg/dL (80-110); HEMOLYSIS < 15 (0-50); Lipase 121 U/L (23-300); Potassium 4.1 mmol/L (3.4-5.1); Sodium 139 mmol/L (137-145); Total Protein 7.5 g/dL (6.3-8.2)
--- NOTE | 2021-05-19 18:09 | PC.NURSE ---
pt states diarrhea 2-3 times a day. the pain is lower abd and he mentions its similar to the last time he had prostatitis.
[2021-05-19 19:10] VITALS: BP 132/85; PULSE 83; O2SAT 98
== END 2021-05-19 19:11 | disposition home or self-care (01) ==
PROVIDERS: Emergency Provider Emergency Medicine; Family Provider Family Medicine; PCP Family Medicine
DX: R19.7 Diarrhea, unspecified (principal); R10.9 Unspecified abdominal pain; R00.0 Tachycardia, unspecified
CPT/HCPCS: 36415; 74177; 80053; 83690; 85025; 93005; 96360; 96361; 99284; Q9967

== ENCOUNTER → 2021-06-19 09:10 | Outpatient (CLI) | payer MEDICARE, SELFPAY ==
--- NOTE | 2021-06-19 | DI.US.S_ITS ---
PROCEDURE: US RENAL COMPLETE INDICATIONS: CALCULUS OF KIDNEY TECHNIQUE: Real-time scanning was performed of the kidneys and bladder, with image documentation. COMPARISON: [facility], CT, CT ABDOMEN PELVIS W CON, 05/19/2021, 16:42. FINDINGS: Kidneys: Kidneys are normal in size. Right kidney measures 9.7 cm long; left kidney measures 1.4 cm long. Right renal cortical thickness is 9.7 cm; left renal cortical thickness is 1.4 cm. Renal cortical echotexture is normal. No hydronephrosis or nephrolithiasis. No suspicious solid mass lesions. Bladder: Pre-void bladder volume is 364 mL. Post-void residual is 43 mL. Pre-void images demonstrate no intraluminal masses or stones. On pre-void images, bilateral ureteral jets are noted with color Doppler interrogation. (Of note, ureteral jets may not be detectable in up to 25% of cases due to insufficient differences in specific gravity between ureteral and bladder urine). Previously identified dependent bladder stone is not visualized. Miscellaneous: No free pelvic fluid. IMPRESSION: 1. No visualized renal calculi. 2. Previously identified bladder is calculus is no longer visualized. Dictated by: Charisse Spencer M.D. on 06/19/2021 at 16:30 Approved by: Charisse Spencer M.D. on 06/19/2021 at 16:32
[2021-06-21 10:24] LABS: PSA Free % 14.2 % (.); PSA, Total 8.6 ng/mL (0.0-4.0)
== END ==
PROVIDERS: Family Provider Family Medicine; PCP Family Medicine; Referring Provider Urology; Visit Provider Urology
DX: N20.0 Calculus of kidney (principal); R97.20 Elevated prostate specific antigen [PSA]
CPT/HCPCS: 36415; 76770; 84153; 84154

== ENCOUNTER → 2021-11-05 12:04 | Outpatient (CLI) | payer MEDICARE, SELFPAY ==
[2021-11-05 13:25] LABS: Alanine Aminotransferase 25 IU/L (<50); Albumin 4.3 g/dL (3.5-5.0); Albumin Globulin Ratio 1.6 (1.0-2.8); Alkaline Phosphatase 43 U/L (38-126); Aspartate Aminotransferase 23 IU/L (17-59); BUN Creatinine Ratio 17.4 (6-22); Bilirubin Total 0.4 mg/dL (0.2-1.3); Blood Urea Nitrogen 20 mg/dL (9-20); Calcium 9.2 mg/dL (8.4-10.2); Carbon Dioxide 27 mmol/L (22-32); Chloride 107 mmol/L (98-107); Cholesterol 199 mg/dL (140-199); Estimated Glomerular Filt Rate > 60.0 mL/min (>60); Globulin 2.7 g/dL (1.7-4.1); Glucose 99 mg/dL (80-110); HDL Cholesterol 61 mg/dL (40-60); HEMOLYSIS < 15 (0-50); LDL Cholesterol Calculated 127 mg/dL (<100); Potassium 4.4 mmol/L (3.4-5.1); Sodium 140 mmol/L (137-145); Triglycerides 56 mg/dL (35-150)
[2021-11-05 13:54] LABS: Testosterone 197 ng/dL (71.8-623)
[2021-11-05 14:02] LABS: TSH w/ Reflex to FT4 1.29 uIU/mL (0.47-4.68)
[2021-11-05 17:20] LABS: Vitamin D 25 Hydroxy (D3) 36.8 ng/mL (30.0-100.0)
[2021-11-06 10:26] LABS: PSA Free % 11.8 % (.); PSA, Total 11.5 ng/mL (0.0-4.0)
== END ==
PROVIDERS: Family Provider Family Medicine; PCP Family Medicine; Referring Provider Urology; Visit Provider Urology
DX: Z13.1 Encounter for screening for diabetes mellitus (principal); M17.0 Bilateral primary osteoarthritis of knee; R97.20 Elevated prostate specific antigen [PSA]; Z13.220 Encounter for screening for lipoid disorders; Z79.891 Long term (current) use of opiate analgesic; N52.9 Male erectile dysfunction, unspecified; R25.1 Tremor, unspecified
CPT/HCPCS: 36415; 80053; 80061; 82306; 84153; 84154; 84403; 84443

== ENCOUNTER → 2022-01-01 11:32 | Outpatient (CLI) | payer MEDICARE, SELFPAY ==
[2022-01-01 14:11] LABS: COVID-19 CEPHEID PCR (VTM/NP) Negative (Negative)
== END ==
PROVIDERS: Family Provider Family Medicine; PCP Family Medicine; Visit Provider Nurse Practitioner Family
DX: Z20.822 Contact with and (suspected) exposure to COVID-19 (principal)
CPT/HCPCS: C9803; U0003; U0005

== ENCOUNTER 2022-02-25 12:00 | Outpatient (RCR) | payer MEDICARE, SELFPAY ==
--- NOTE | 2022-01-12 15:39 | PT.OPPOC ---
Physical, Occupational & Speech Therapy At [facility] Current Diagnoses Pain in right knee (01/12/22) Other abnormalities of gait and mobility (01/12/22) Presence of unspecified artificial knee joint (01/12/22) Visit Care Team Role Provider Type Katia Cid DO Family Provider Physician Primary Care Provider Specialty: Family Practice Address: [address] [place] [address], [facility], [place], [address] Email: [email or web address] Rafael Delgadillo MD Attending Provider Non-Staff Referring Provider Specialty: Orthopedics Address: [address] [place] [address], [place], [address] Email: Plan Of Care PT-OP-T Assessment and Plan Start: 01/05/22 15:42 Freq: Status: Active Protocol: Document 01/12/22 10:15 AMB (Rec: 01/13/22 15:39 AMB [id number]) Physical Therapy Assessment Rehab Potential Rehabilitation Potential Good Evaluation Complexity Number of Personal Factors/Comorbidities 1-2 Number of Body Systems Impaired 4 or More Clinical Presentation at Evaluation Evolving Impairments Impairments Balance,Functional Activities, Gait,Pain,ROM,Strength Goals Three Impairment Functional movements Short Term Goal (STG) Steve will perform a full squat with good body mechanics and without an increase in baseline pain. STG Duration 4 weeks Chemist Helper Goal (LTG) Steve will perform a full squat while lifting 10# without an increase in pain to simulate lifting a horses foot so he can return to his work. LTG Duration 8 weeks Two Impairment Gait Short Term Goal (STG) Steve will walk for 6 minutes over smooth terrain without an increase in knee pain. STG Duration 4 weeks Chemist Helper Goal (LTG) Steve will safely ascend and descend 1 flight of stairs without knee pain. LTG Duration 8 weeks One Impairment ROM Short Term Goal (STG) Steve will have neutral knee extension STG Duration 4 weeks [facility] Goal (LTG) Steve will increase his knee flexion to 130 degrees actively. LTG Duration 8 weeks Assessment Summary Assessment Steve attends physical therapy with R TKA revision, he is overall quite flexible but will need to improve his knee flexion and extension. He did present with quad weakness. He was a bit hesitant in regards to exercise, stating that biking increases his bilateral knee pain and he is concerned about his left knee which he reports also needs a replacement. 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 His vision impairment will require extra attention, safety awareness. Physical Therapy Plan Frequency and Duration Frequency of Treatment 2x/Week Duration of Treatment 8 weeks Plan of Care Start Date 01/12/22 Plan of Care End Date 03/10/22 Therapeutic Interventions Therapeutic Interventions Gait Training,Home Exercise Program,Joint Mobilizations, Manual Therapy,Neuromuscular Re-education,Self-Care/Home Management,Therapeutic Activities,Therapeutic Exercises Modalities Cold Pack/Ice Massage,Electric Stimulation Next Visit Focus/Plan Next Note Type Treatment Note Next Visit Plan Start with quad strengthening, work on knee extension ROM Plan of Care Dates Plan of Care Start Date 01/12/22 Plan of Care End Date 03/10/22 Electronically Signed by: Kristen Gamez, PT 01/13/22 [id number] Please Sign and Return: I have reviewed this Plan of Care and certify that the skilled therapy services above are required to meet the patient?s needs. Physician Signature Date Printed Name and Credentials Clinical Instructor Signature Printed Name and Credentials
--- NOTE | 2022-01-12 15:39 | PT.OIE ---
Current Diagnoses Pain in right knee (01/12/22) Other abnormalities of gait and mobility (01/12/22) Presence of unspecified artificial knee joint (01/12/22) Past Medical History (Last Reviewed 11/09/21 @ 07:31 by Katia Cid DO) Anxiety Benign prostatic hyperplasia Blindness (11/21/17) Chronic knee pain Chronic prescription opiate use Depression Elevated PSA History of knee replacement Lumbar spine pain Vision disorder Past Surgical History (Last Reviewed 11/09/21 @ 07:31 by Katia Cid DO) History of knee replacement Visit Care Team Role Provider Type Katia Cid DO Family Provider Physician Primary Care Provider Specialty: Family Practice Address: [address] [place] [address], [place], [address] Email: [email or web address] Rafael Delgadillo MD Attending Provider Non-Staff Referring Provider Specialty: Orthopedics Address: [address] [place] [address], [facility] Email: Physical Therapy Initial Evaluation PT-OP-A Visit Information Start: 01/05/22 15:42 Freq: Status: Active Protocol: Document 01/12/22 10:20 AMB (Rec: 01/12/22 10:39 AMB [id number]) Out-Patient Physical Therapy Visit Information Visit Information Visit Type Initial Evaluation Visit Start Time 10:15 Visit Stop Time 11:00 Total Visit Minutes 45 Visit Number 1 PT-OP-B Current Condition Start: 01/05/22 15:42 Freq: Status: Active Protocol: Document 01/12/22 10:20 AMB (Rec: 01/12/22 10:39 AMB [id number]) Current Condition History of Current Condition Onset Date 01/04/22 Current Complaints R TKA revision History of Current Condition Nate attends PT after R TKA revision. 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 Does have pain in the left knee. No stairs, lives with his mom, his daugher drove him here today. Reports chronic back pain. Released from the hospital same day so wasn't given exercises, voices concern about over doing it. 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 Personal Factors Other Personal Factors That May Effect Blind, chronic back pain, Therapy/Recovery PT-OP-G Mobility & Gait Start: 01/05/22 15:42 Freq: Status: Active Protocol: Document 01/12/22 10:15 AMB (Rec: 01/13/22 15:04 AMB [id number]) OP Mobility Evaluation Transfers Sit to Stand independent- pt tends to put more weight on L leg OP Gait Assessment Comments Gait Comments Pt ambulates with slight step to gait pattern, tending not to go into full knee extension PT-OP-J Posture/Palpation/Skin Start: 01/05/22 15:42 Freq: Status: Active Protocol: Document 01/12/22 10:15 AMB (Rec: 01/13/22 15:04 AMB [id number]) Skin Assessment Incisional Assessment Incision Appearance/Comments Pt wearing lali hose to mid thigh, Scar is healing appropriately no redness, mild swelling around knee but not pitting in foot, no significant bruising, PT-OP-K Range of Motion Start: 01/05/22 15:42 Freq: Status: Active Protocol: Document 01/12/22 10:20 AMB (Rec: 01/12/22 10:39 AMB [id number]) Knee Goniometric Range of Motion Knee Left Patient Position Supine Flexion Active (degrees) 140 Right Patient Position Supine Flexion Active (degrees) 110 Extension Active (degrees) 3 PT-OP-M Strength Start: 01/05/22 15:42 Freq: Status: Active Protocol: Document 01/12/22 10:15 AMB (Rec: 01/13/22 15:04 AMB [id number]) Hip Strength Hip Manual Muscle Testing Right Flexion (L2) 4 Good Extension (S1) 4+ Good+ Knee Strength Knee Manual Muscle Testing Right Flexion (S2) 4+ Good+ Extension (L3) 3+ Fair+ PT-OP-Q Treatments Start: 01/05/22 15:42 Freq: Status: Active Protocol: Document 01/12/22 10:15 AMB (Rec: 01/13/22 15:05 AMB [id number]) Therapeutic Exercises Supine Exercises quad sets Side right Reps/Minutes 10 Self-Care/Home Management Treatment Education Other Education Per pt request educated pt on TENS use/setup. Pt brought personal TENS unit from home. PT-OP-T Assessment and Plan Start: 01/05/22 15:42 Freq: Status: Active Protocol: Document 01/12/22 10:15 AMB (Rec: 01/13/22 15:39 AMB [id number]) Physical Therapy Assessment Rehab Potential Rehabilitation Potential Good Evaluation Complexity Number of Personal Factors/Comorbidities 1-2 Number of Body Systems Impaired 4 or More Clinical Presentation at Evaluation Evolving Impairments Impairments Balance,Functional Activities, Gait,Pain,ROM,Strength Goals Three Impairment Functional movements Short Term Goal (STG) Steve will perform a full squat with good body mechanics and without an increase in baseline pain. STG Duration 4 weeks Associate Financial Representative Goal (LTG) Steve will perform a full squat while lifting 10# without an increase in pain to simulate lifting a horses foot so he can return to his work. LTG Duration 8 weeks Two Impairment Gait Short Term Goal (STG) Steve will walk for 6 minutes over smooth terrain without an increase in knee pain. STG Duration 4 weeks Associate Financial Representative Goal (LTG) Steve will safely ascend and descend 1 flight of stairs without knee pain. LTG Duration 8 weeks One Impairment ROM Short Term Goal (STG) Steve will have neutral knee extension STG Duration 4 weeks Associate Financial Representative Goal (LTG) Steve will increase his knee flexion to 130 degrees actively. LTG Duration 8 weeks Assessment Summary Assessment Steve attends physical therapy with R TKA revision, he is overall quite flexible but will need to improve his knee flexion and extension. He did present with quad weakness. He was a bit hesitant in regards to exercise, stating that biking increases his bilateral knee pain and he is concerned about his left knee which he reports also needs a replacement. 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 His vision impairment will require extra attention, safety awareness. Physical Therapy Plan Frequency and Duration Frequency of Treatment 2x/Week Duration of Treatment 8 weeks Plan of Care Start Date 01/12/22 Plan of Care End Date 03/10/22 Therapeutic Interventions Therapeutic Interventions Gait Training,Home Exercise Program,Joint Mobilizations, Manual Therapy,Neuromuscular Re-education,Self-Care/Home Management,Therapeutic Activities,Therapeutic Exercises Modalities Cold Pack/Ice Massage,Electric Stimulation Next Visit Focus/Plan Next Note Type Treatment Note Next Visit Plan Start with quad strengthening, work on knee extension ROM
--- NOTE | 2022-01-19 14:12 | PT.OTN ---
Current Diagnoses Pain in right knee (01/19/22) Other abnormalities of gait and mobility (01/19/22) Presence of unspecified artificial knee joint (01/19/22) Physical Therapy Treatment Note PT-OP-A Visit Information Start: 01/05/22 15:42 Freq: Status: Active Protocol: Document 01/19/22 13:15 AMB (Rec: 01/19/22 14:11 AMB [id number]) Out-Patient Physical Therapy Visit Information Visit Information Visit Type Treatment Note Visit Start Time 10:45 Visit Stop Time 11:15 Total Visit Minutes 30 Visit Number 2 PT-OP-B Current Condition Start: 01/05/22 15:42 Freq: Status: Active Protocol: Document 01/12/22 10:20 AMB (Rec: 01/12/22 10:39 AMB [id number]) Current Condition History of Current Condition Onset Date 01/04/22 Current Complaints R TKA revision History of Current Condition Nate attends PT after R TKA revision. 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 Does have pain in the left knee. No stairs, lives with his mom, his daugher drove him here today. Reports chronic back pain. Released from the hospital same day so wasn't given exercises, voices concern about over doing it. 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 Had MD appt and they are happy with his progress. PT-OP-G Mobility & Gait Start: 01/05/22 15:42 Freq: Status: Active Protocol: Document 01/12/22 10:15 AMB (Rec: 01/13/22 15:04 AMB [id number]) OP Mobility Evaluation Transfers Sit to Stand independent- pt tends to put more weight on L leg OP Gait Assessment Comments Gait Comments Pt ambulates with slight step to gait pattern, tending not to go into full knee extension PT-OP-J Posture/Palpation/Skin Start: 01/05/22 15:42 Freq: Status: Active Protocol: Document 01/12/22 10:15 AMB (Rec: 01/13/22 15:04 AMB [id number]) Skin Assessment Incisional Assessment Incision Appearance/Comments Pt wearing lali hose to mid thigh, Scar is healing appropriately no redness, mild swelling around knee but not pitting in foot, no significant bruising, PT-OP-K Range of Motion Start: 01/05/22 15:42 Freq: Status: Active Protocol: Document 01/12/22 10:20 AMB (Rec: 01/12/22 10:39 AMB [id number]) Knee Goniometric Range of Motion Knee Left Patient Position Supine Flexion Active (degrees) 140 Right Patient Position Supine Flexion Active (degrees) 110 Extension Active (degrees) 3 PT-OP-M Strength Start: 01/05/22 15:42 Freq: Status: Active Protocol: Document 01/12/22 10:15 AMB (Rec: 01/13/22 15:04 AMB [id number]) Hip Strength Hip Manual Muscle Testing Right Flexion (L2) 4 Good Extension (S1) 4+ Good+ Knee Strength Knee Manual Muscle Testing Right Flexion (S2) 4+ Good+ Extension (L3) 3+ Fair+ PT-OP-Q Treatments Start: 01/05/22 15:42 Freq: Status: Active Protocol: Document 01/19/22 13:15 AMB (Rec: 01/19/22 14:11 AMB [id number]) Cardio Equipment Recumbent Stepper (Sci-Fit) Duration (Minutes) 7 Resistance 3 Therapeutic Exercises Supine Exercises SLR Reps/Minutes 2x10 hamstring stretch Reps/Minutes 30x3 SAQ Reps/Minutes 2x10 AROM quad sets Side right Reps/Minutes 10 Sitting Exercises 1 Sitting Exercise Name LAQ Resistance AROM Comments 5- consider ankle weight next visit PT-OP-T Assessment and Plan Start: 01/05/22 15:42 Freq: Status: Active Protocol: Document 01/19/22 13:15 AMB (Rec: 01/19/22 14:11 AMB [id number]) Physical Therapy Assessment Goals Three Impairment Functional movements Short Term Goal (STG) Steve will perform a full squat with good body mechanics and without an increase in baseline pain. STG Duration 4 weeks Assistant Tennis Coach Goal (LTG) Steve will perform a full squat while lifting 10# without an increase in pain to simulate lifting a horses foot so he can return to his work. LTG Duration 8 weeks Two Impairment Gait Short Term Goal (STG) Steve will walk for 6 minutes over smooth terrain without an increase in knee pain. STG Duration 4 weeks Detention Goal (LTG) Steve will safely ascend and descend 1 flight of stairs without knee pain. LTG Duration 8 weeks One Impairment ROM Short Term Goal (STG) Steve will have neutral knee extension STG Duration 4 weeks Detention Goal (LTG) Steve will increase his knee flexion to 130 degrees actively. LTG Duration 8 weeks Assessment Summary Assessment Steve's ROM continues to improve , incision is looking appropriate, will want to work on scar tissue once more healed. He tolerated recumbant ellptical well, but felt hip flexor discomfort with SLR. Physical Therapy Plan Next Visit Focus/Plan Next Note Type Treatment Note Next Visit Plan Start with quad strengthening, work on knee extension ROM-- next visit shuttle recovery, weights with SAQ/LAQ
--- NOTE | 2022-01-21 13:09 | PT.OTN ---
Current Diagnoses Pain in right knee (01/21/22) Other abnormalities of gait and mobility (01/21/22) Presence of unspecified artificial knee joint (01/21/22) Physical Therapy Treatment Note PT-OP-A Visit Information Start: 01/05/22 15:42 Freq: Status: Active Protocol: Document 01/21/22 10:52 AMB (Rec: 01/21/22 11:09 AMB [id number]) Out-Patient Physical Therapy Visit Information Visit Information Visit Type Treatment Note Visit Start Time 10:45 Visit Stop Time 11:15 Total Visit Minutes 30 Visit Number 3 PT-OP-B Current Condition Start: 01/05/22 15:42 Freq: Status: Active Protocol: Document 01/12/22 10:20 AMB (Rec: 01/12/22 10:39 AMB [id number]) Current Condition History of Current Condition Onset Date 01/04/22 Current Complaints R TKA revision History of Current Condition Nate attends PT after R TKA revision. 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 Does have pain in the left knee. No stairs, lives with his mom, his daugher drove him here today. Reports chronic back pain. Released from the hospital same day so wasn't given exercises, voices concern about over doing it. 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 PT-OP-G Mobility & Gait Start: 01/05/22 15:42 Freq: Status: Active Protocol: Document 01/12/22 10:15 AMB (Rec: 01/13/22 15:04 AMB [id number]) OP Mobility Evaluation Transfers Sit to Stand independent- pt tends to put more weight on L leg OP Gait Assessment Comments Gait Comments Pt ambulates with slight step to gait pattern, tending not to go into full knee extension PT-OP-J Posture/Palpation/Skin Start: 01/05/22 15:42 Freq: Status: Active Protocol: Document 01/12/22 10:15 AMB (Rec: 01/13/22 15:04 AMB [id number]) Skin Assessment Incisional Assessment Incision Appearance/Comments Pt wearing lali hose to mid thigh, Scar is healing appropriately no redness, mild swelling around knee but not pitting in foot, no significant bruising, PT-OP-K Range of Motion Start: 01/05/22 15:42 Freq: Status: Active Protocol: Document 01/12/22 10:20 AMB (Rec: 01/12/22 10:39 AMB [id number]) Knee Goniometric Range of Motion Knee Left Patient Position Supine Flexion Active (degrees) 140 Right Patient Position Supine Flexion Active (degrees) 110 Extension Active (degrees) 3 PT-OP-M Strength Start: 01/05/22 15:42 Freq: Status: Active Protocol: Document 01/12/22 10:15 AMB (Rec: 01/13/22 15:04 AMB [id number]) Hip Strength Hip Manual Muscle Testing Right Flexion (L2) 4 Good Extension (S1) 4+ Good+ Knee Strength Knee Manual Muscle Testing Right Flexion (S2) 4+ Good+ Extension (L3) 3+ Fair+ PT-OP-Q Treatments Start: 01/05/22 15:42 Freq: Status: Active Protocol: Document 01/21/22 10:52 AMB (Rec: 01/21/22 11:09 AMB [id number]) Cardio Equipment Recumbent Stepper (Sci-Fit) Duration (Minutes) 7 Resistance 8 Gym Equipment Shuttle Recovery Unilateral Squats Resistance 25 Reps/Time 2x10 Therapeutic Exercises Supine Exercises quad stretch Side right Reps/Minutes 30'x2 hamstring stretch Side right Reps/Minutes 30x3 SAQ Side right Resistance 4# Reps/Minutes 2x10 PT-OP-T Assessment and Plan Start: 01/05/22 15:42 Freq: Status: Active Protocol: Document 01/21/22 10:52 AMB (Rec: 01/21/22 11:09 AMB [id number]) Physical Therapy Assessment Goals Three Impairment Functional movements Short Term Goal (STG) Steve will perform a full squat with good body mechanics and without an increase in baseline pain. STG Duration 4 weeks Correction Goal (LTG) Steve will perform a full squat while lifting 10# without an increase in pain to simulate lifting a horses foot so he can return to his work. LTG Duration 8 weeks Two Impairment Gait Short Term Goal (STG) Steve will walk for 6 minutes over smooth terrain without an increase in knee pain. STG Duration 4 weeks Visual Merchandising Associate Goal (LTG) Steve will safely ascend and descend 1 flight of stairs without knee pain. LTG Duration 8 weeks One Impairment ROM Short Term Goal (STG) Steve will have neutral knee extension STG Duration 4 weeks Visual Merchandising Associate Goal (LTG) Steve will increase his knee flexion to 130 degrees actively. LTG Duration 8 weeks Assessment Summary Assessment Tolerated shuttle recovery at 25#. SAQ at 4#. Pt concerned about irritating patellofemoral joint, so kept weights fairly low, but tolerated well. Physical Therapy Plan Next Visit Focus/Plan Next Note Type Treatment Note Next Visit Plan Start with quad strengthening, work on knee extension ROM-- weights with SAQ/LAQ
--- NOTE | 2022-01-28 09:46 | PT.OTN ---
Current Diagnoses Pain in right knee (01/28/22) Other abnormalities of gait and mobility (01/28/22) Presence of unspecified artificial knee joint (01/28/22) Physical Therapy Treatment Note PT-OP-A Visit Information Start: 01/05/22 15:42 Freq: Status: Active Protocol: Document 01/28/22 09:14 AMB (Rec: 01/28/22 09:34 AMB [id number]) Out-Patient Physical Therapy Visit Information Visit Information Visit Type Treatment Note Visit Start Time 09:00 Visit Stop Time 09:45 Total Visit Minutes 45 Visit Number 4 PT-OP-B Current Condition Start: 01/05/22 15:42 Freq: Status: Active Protocol: Document 01/12/22 10:20 AMB (Rec: 01/12/22 10:39 AMB [id number]) Current Condition History of Current Condition Onset Date 01/04/22 Current Complaints R TKA revision History of Current Condition Nate attends PT after R TKA revision. 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 Does have pain in the left knee. No stairs, lives with his mom, his daugher drove him here today. Reports chronic back pain. Released from the hospital same day so wasn't given exercises, voices concern about over doing it. 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 PT-OP-G Mobility & Gait Start: 01/05/22 15:42 Freq: Status: Active Protocol: Document 01/12/22 10:15 AMB (Rec: 01/13/22 15:04 AMB [id number]) OP Mobility Evaluation Transfers Sit to Stand independent- pt tends to put more weight on L leg OP Gait Assessment Comments Gait Comments Pt ambulates with slight step to gait pattern, tending not to go into full knee extension PT-OP-J Posture/Palpation/Skin Start: 01/05/22 15:42 Freq: Status: Active Protocol: Document 01/12/22 10:15 AMB (Rec: 01/13/22 15:04 AMB [id number]) Skin Assessment Incisional Assessment Incision Appearance/Comments Pt wearing lali hose to mid thigh, Scar is healing appropriately no redness, mild swelling around knee but not pitting in foot, no significant bruising, PT-OP-K Range of Motion Start: 01/05/22 15:42 Freq: Status: Active Protocol: Document 01/12/22 10:20 AMB (Rec: 01/12/22 10:39 AMB [id number]) Knee Goniometric Range of Motion Knee Left Patient Position Supine Flexion Active (degrees) 140 Right Patient Position Supine Flexion Active (degrees) 110 Extension Active (degrees) 3 PT-OP-M Strength Start: 01/05/22 15:42 Freq: Status: Active Protocol: Document 01/12/22 10:15 AMB (Rec: 01/13/22 15:04 AMB [id number]) Hip Strength Hip Manual Muscle Testing Right Flexion (L2) 4 Good Extension (S1) 4+ Good+ Knee Strength Knee Manual Muscle Testing Right Flexion (S2) 4+ Good+ Extension (L3) 3+ Fair+ PT-OP-Q Treatments Start: 01/05/22 15:42 Freq: Status: Active Protocol: Document 01/28/22 09:14 AMB (Rec: 01/28/22 09:34 AMB [id number]) Cardio Equipment Recumbent Elliptical (BiodStubmatic) Duration (Minutes) 10 Resistance 4 Gym Equipment Shuttle Recovery Unilateral Squats Resistance 37 Reps/Time 4x10 Therapeutic Exercises Supine Exercises SLR Reps/Minutes 2x10 hamstring stretch Side right Reps/Minutes 30x3 SAQ Side right Resistance 4# Reps/Minutes 2x10 PT-OP-T Assessment and Plan Start: 01/05/22 15:42 Freq: Status: Active Protocol: Document 01/28/22 09:14 AMB (Rec: 01/28/22 09:34 AMB [id number]) Physical Therapy Assessment Goals Three Impairment Functional movements Short Term Goal (STG) Steve will perform a full squat with good body mechanics and without an increase in baseline pain. STG Duration 4 weeks Captain Room Service Goal (LTG) Steve will perform a full squat while lifting 10# without an increase in pain to simulate lifting a horses foot so he can return to his work. LTG Duration 8 weeks Two Impairment Gait Short Term Goal (STG) Steve will walk for 6 minutes over smooth terrain without an increase in knee pain. STG Duration 4 weeks Captain Room Service Goal (LTG) Steve will safely ascend and descend 1 flight of stairs without knee pain. LTG Duration 8 weeks One Impairment ROM Short Term Goal (STG) Steve will have neutral knee extension STG Duration 4 weeks Captain Room Service Goal (LTG) Steve will increase his knee flexion to 130 degrees actively. LTG Duration 8 weeks Assessment Summary Assessment Pt tolerated increased resistance well, goal is to be able to get up from full squat, but left knee is a limiting factor for this at this point. Physical Therapy Plan Next Visit Focus/Plan Next Note Type Treatment Note Next Visit Plan Progress with quad strengthening, work on knee extension ROM-- weights with SAQ/LAQ
--- NOTE | 2022-02-02 12:39 | PT.OTN ---
Current Diagnoses Pain in right knee (02/02/22) Other abnormalities of gait and mobility (02/02/22) Presence of unspecified artificial knee joint (02/02/22) Physical Therapy Treatment Note PT-OP-A Visit Information Start: 01/05/22 15:42 Freq: Status: Active Protocol: Document 02/02/22 11:16 AMB (Rec: 02/02/22 12:37 AMB [id number]) Out-Patient Physical Therapy Visit Information Visit Information Visit Type Treatment Note Visit Start Time 11:15 Visit Stop Time 12:00 Total Visit Minutes 45 Visit Number 5 PT-OP-B Current Condition Start: 01/05/22 15:42 Freq: Status: Active Protocol: Document 01/12/22 10:20 AMB (Rec: 01/12/22 10:39 AMB [id number]) Current Condition History of Current Condition Onset Date 01/04/22 Current Complaints R TKA revision History of Current Condition Nate attends PT after R TKA revision. 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 Does have pain in the left knee. No stairs, lives with his mom, his daugher drove him here today. Reports chronic back pain. Released from the hospital same day so wasn't given exercises, voices concern about over doing it. 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 PT-OP-G Mobility & Gait Start: 01/05/22 15:42 Freq: Status: Active Protocol: Document 01/12/22 10:15 AMB (Rec: 01/13/22 15:04 AMB [id number]) OP Mobility Evaluation Transfers Sit to Stand independent- pt tends to put more weight on L leg OP Gait Assessment Comments Gait Comments Pt ambulates with slight step to gait pattern, tending not to go into full knee extension PT-OP-J Posture/Palpation/Skin Start: 01/05/22 15:42 Freq: Status: Active Protocol: Document 01/12/22 10:15 AMB (Rec: 01/13/22 15:04 AMB [id number]) Skin Assessment Incisional Assessment Incision Appearance/Comments Pt wearing lali hose to mid thigh, Scar is healing appropriately no redness, mild swelling around knee but not pitting in foot, no significant bruising, PT-OP-K Range of Motion Start: 01/05/22 15:42 Freq: Status: Active Protocol: Document 01/12/22 10:20 AMB (Rec: 01/12/22 10:39 AMB [id number]) Knee Goniometric Range of Motion Knee Left Patient Position Supine Flexion Active (degrees) 140 Right Patient Position Supine Flexion Active (degrees) 110 Extension Active (degrees) 3 PT-OP-M Strength Start: 01/05/22 15:42 Freq: Status: Active Protocol: Document 01/12/22 10:15 AMB (Rec: 01/13/22 15:04 AMB [id number]) Hip Strength Hip Manual Muscle Testing Right Flexion (L2) 4 Good Extension (S1) 4+ Good+ Knee Strength Knee Manual Muscle Testing Right Flexion (S2) 4+ Good+ Extension (L3) 3+ Fair+ PT-OP-Q Treatments Start: 01/05/22 15:42 Freq: Status: Active Protocol: Document 02/02/22 11:16 AMB (Rec: 02/02/22 12:37 AMB [id number]) Cardio Equipment Recumbent Elliptical (Biodex) Duration (Minutes) 10 Resistance 24 Gym Equipment Shuttle Recovery Unilateral Squats Resistance 50 Reps/Time 4x10 Therapeutic Exercises Sitting Exercises 1 Sitting Exercise Name sit to stand Reps/Minutes 10 Comments even weightbearing Standing Exercises 1 Standing Exercise Name mini forward lunges Reps/Minutes 2x10 2 Standing Exercise Name hip abd Resistance #2 t band Reps/Minutes 2x10 Neuro Re-Education Treatment Balance Activities balance board Comments even weightbearing PT-OP-T Assessment and Plan Start: 01/05/22 15:42 Freq: Status: Active Protocol: Document 02/02/22 11:16 AMB (Rec: 02/02/22 12:37 AMB [id number]) Physical Therapy Assessment Goals Three Impairment Functional movements Short Term Goal (STG) Steve will perform a full squat with good body mechanics and without an increase in baseline pain. STG Duration 4 weeks Centrifugal Wax Molder Goal (LTG) Steve will perform a full squat while lifting 10# without an increase in pain to simulate lifting a horses foot so he can return to his work. LTG Duration 8 weeks Two Impairment Gait Short Term Goal (STG) Steve will walk for 6 minutes over smooth terrain without an increase in knee pain. STG Duration 4 weeks Centrifugal Wax Molder Goal (LTG) Steve will safely ascend and descend 1 flight of stairs without knee pain. LTG Duration 8 weeks One Impairment ROM Short Term Goal (STG) Steve will have neutral knee extension STG Duration 4 weeks Centrifugal Wax Molder Goal (LTG) Steve will increase his knee flexion to 130 degrees actively. LTG Duration 8 weeks Assessment Summary Assessment Pt is doing better with exercises. Does continue to have some pain with deep squat , but partial squat/lunges are going well. Did have tightness in left hip after hip abduction exercises. Physical Therapy Plan Next Visit Focus/Plan Next Note Type Treatment Note Next Visit Plan Progress with quad strengthening, work on knee extension ROM-- weights with SAQ/LAQ
--- NOTE | 2022-02-05 12:37 | PT.OTN ---
Current Diagnoses Pain in right knee (02/05/22) Other abnormalities of gait and mobility (02/05/22) Presence of unspecified artificial knee joint (02/05/22) Physical Therapy Treatment Note PT-OP-A Visit Information Start: 01/05/22 15:42 Freq: Status: Active Protocol: Document 02/05/22 09:58 AMB (Rec: 02/05/22 10:34 AMB [id number]) Out-Patient Physical Therapy Visit Information Visit Information Visit Type Treatment Note Visit Start Time 09:45 Visit Stop Time 10:30 Total Visit Minutes 45 Visit Number 6 PT-OP-B Current Condition Start: 01/05/22 15:42 Freq: Status: Active Protocol: Document 01/12/22 10:20 AMB (Rec: 01/12/22 10:39 AMB [id number]) Current Condition History of Current Condition Onset Date 01/04/22 Current Complaints R TKA revision History of Current Condition Nate attends PT after R TKA revision. 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 Does have pain in the left knee. No stairs, lives with his mom, his daugher drove him here today. Reports chronic back pain. Released from the hospital same day so wasn't given exercises, voices concern about over doing it. 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 He is feeling it a little in distal quat. L TKA is happening in less than a month. PT-OP-G Mobility & Gait Start: 01/05/22 15:42 Freq: Status: Active Protocol: Document 01/12/22 10:15 AMB (Rec: 01/13/22 15:04 AMB [id number]) OP Mobility Evaluation Transfers Sit to Stand independent- pt tends to put more weight on L leg OP Gait Assessment Comments Gait Comments Pt ambulates with slight step to gait pattern, tending not to go into full knee extension PT-OP-J Posture/Palpation/Skin Start: 01/05/22 15:42 Freq: Status: Active Protocol: Document 01/12/22 10:15 AMB (Rec: 01/13/22 15:04 AMB [id number]) Skin Assessment Incisional Assessment Incision Appearance/Comments Pt wearing lali hose to mid thigh, Scar is healing appropriately no redness, mild swelling around knee but not pitting in foot, no significant bruising, PT-OP-K Range of Motion Start: 01/05/22 15:42 Freq: Status: Active Protocol: Document 01/12/22 10:20 AMB (Rec: 01/12/22 10:39 AMB [id number]) Knee Goniometric Range of Motion Knee Left Patient Position Supine Flexion Active (degrees) 140 Right Patient Position Supine Flexion Active (degrees) 110 Extension Active (degrees) 3 PT-OP-M Strength Start: 01/05/22 15:42 Freq: Status: Active Protocol: Document 01/12/22 10:15 AMB (Rec: 01/13/22 15:04 AMB [id number]) Hip Strength Hip Manual Muscle Testing Right Flexion (L2) 4 Good Extension (S1) 4+ Good+ Knee Strength Knee Manual Muscle Testing Right Flexion (S2) 4+ Good+ Extension (L3) 3+ Fair+ PT-OP-Q Treatments Start: 01/05/22 15:42 Freq: Status: Active Protocol: Document 02/05/22 09:58 AMB (Rec: 02/05/22 10:34 AMB [id number]) Cardio Equipment Recumbent Stepper (Sci-Fit) Duration (Minutes) 10 Resistance 6 Gym Equipment Shuttle Recovery Unilateral Squats Resistance 50>62 Reps/Time 4x10 Therapeutic Exercises Sitting Exercises 1 Sitting Exercise Name squats Reps/Minutes 20 Comments at railing Manual Therapy Treatment Soft Tissue Mobilization scar mobilization Mobilization Type Myofascial Release,Strumming, Sustained Pressure PT-OP-T Assessment and Plan Start: 01/05/22 15:42 Freq: Status: Active Protocol: Document 02/05/22 12:18 AMB (Rec: 02/05/22 12:29 [facility] [id number]) Physical Therapy Assessment Goals Three Impairment Functional movements Short Term Goal (STG) Steve will perform a full squat with good body mechanics and without an increase in baseline pain. STG Duration 4 weeks Group Home Goal (LTG) Steve will perform a full squat while lifting 10# without an increase in pain to simulate lifting a horses foot so he can return to his work. LTG Duration 8 weeks Two Impairment Gait Short Term Goal (STG) Steve will walk for 6 minutes over smooth terrain without an increase in knee pain. STG Duration 4 weeks Group Home Goal (LTG) Steve will safely ascend and descend 1 flight of stairs without knee pain. LTG Duration 8 weeks One Impairment ROM Short Term Goal (STG) Steve will have neutral knee extension STG Duration 4 weeks Group Home Goal (LTG) Steve will increase his knee flexion to 130 degrees actively. LTG Duration 8 weeks Assessment Summary Assessment Nate was concerned about some crepitus under patella with knee flexion. He does have good patellar mobility. 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 Physical Therapy Plan Next Visit Focus/Plan Next Note Type Treatment Note Next Visit Plan Progress with quad strengthening, work on knee extension ROM-- weights with SAQ/LAQ
--- NOTE | 2022-02-08 14:28 | PT.OTN ---
Current Diagnoses Pain in right knee (02/08/22) Other abnormalities of gait and mobility (02/08/22) Presence of unspecified artificial knee joint (02/08/22) Physical Therapy Treatment Note PT-OP-A Visit Information Start: 01/05/22 15:42 Freq: Status: Active Protocol: Document 02/08/22 10:30 AMB (Rec: 02/08/22 11:22 AMB [id number]) Out-Patient Physical Therapy Visit Information Visit Information Visit Type Treatment Note Visit Start Time 10:30 Visit Stop Time 11:15 Total Visit Minutes 45 Visit Number 7 PT-OP-B Current Condition Start: 01/05/22 15:42 Freq: Status: Active Protocol: Document 01/12/22 10:20 AMB (Rec: 01/12/22 10:39 AMB [id number]) Current Condition History of Current Condition Onset Date 01/04/22 Current Complaints R TKA revision History of Current Condition Nate attends PT after R TKA revision. 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 Does have pain in the left knee. No stairs, lives with his mom, his daugher drove him here today. Reports chronic back pain. Released from the hospital same day so wasn't given exercises, voices concern about over doing it. 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 PT-OP-G Mobility & Gait Start: 01/05/22 15:42 Freq: Status: Active Protocol: Document 01/12/22 10:15 AMB (Rec: 01/13/22 15:04 AMB [id number]) OP Mobility Evaluation Transfers Sit to Stand independent- pt tends to put more weight on L leg OP Gait Assessment Comments Gait Comments Pt ambulates with slight step to gait pattern, tending not to go into full knee extension PT-OP-J Posture/Palpation/Skin Start: 01/05/22 15:42 Freq: Status: Active Protocol: Document 01/12/22 10:15 AMB (Rec: 01/13/22 15:04 AMB [id number]) Skin Assessment Incisional Assessment Incision Appearance/Comments Pt wearing lali hose to mid thigh, Scar is healing appropriately no redness, mild swelling around knee but not pitting in foot, no significant bruising, PT-OP-K Range of Motion Start: 01/05/22 15:42 Freq: Status: Active Protocol: Document 01/12/22 10:20 AMB (Rec: 01/12/22 10:39 AMB [id number]) Knee Goniometric Range of Motion Knee Left Patient Position Supine Flexion Active (degrees) 140 Right Patient Position Supine Flexion Active (degrees) 110 Extension Active (degrees) 3 PT-OP-M Strength Start: 01/05/22 15:42 Freq: Status: Active Protocol: Document 01/12/22 10:15 AMB (Rec: 01/13/22 15:04 AMB [id number]) Hip Strength Hip Manual Muscle Testing Right Flexion (L2) 4 Good Extension (S1) 4+ Good+ Knee Strength Knee Manual Muscle Testing Right Flexion (S2) 4+ Good+ Extension (L3) 3+ Fair+ PT-OP-Q Treatments Start: 01/05/22 15:42 Freq: Status: Active Protocol: Document 02/08/22 10:30 AMB (Rec: 02/08/22 11:22 AMB [id number]) Cardio Equipment Recumbent Elliptical (Biodex) Duration (Minutes) 10 Resistance 7 Gym Equipment Shuttle Recovery Unilateral Squats Details R LE Resistance 25>32>50>62>75 Reps/Time 1x12 ea Therapeutic Exercises Supine Exercises SLR Reps/Minutes 2x10 hamstring stretch Side right Reps/Minutes 30x3 Manual Therapy Treatment Soft Tissue Mobilization scar mobilization Mobilization Type Myofascial Release,Strumming, Sustained Pressure PT-OP-T Assessment and Plan Start: 01/05/22 15:42 Freq: Status: Active Protocol: Document 02/08/22 10:30 AMB (Rec: 02/08/22 13:00 [facility] [id number]) Physical Therapy Assessment Goals Three Impairment Functional movements Short Term Goal (STG) Steve will perform a full squat with good body mechanics and without an increase in baseline pain. STG Duration 4 weeks Snf Goal (LTG) Steve will perform a full squat while lifting 10# without an increase in pain to simulate lifting a horses foot so he can return to his work. LTG Duration 8 weeks Two Impairment Gait Short Term Goal (STG) Steve will walk for 6 minutes over smooth terrain without an increase in knee pain. STG Duration 4 weeks Cashier Assistant Goal (LTG) Steve will safely ascend and descend 1 flight of stairs without knee pain. LTG Duration 8 weeks One Impairment ROM Short Term Goal (STG) Steve will have neutral knee extension STG Duration 4 weeks Cashier Assistant Goal (LTG) Steve will increase his knee flexion to 130 degrees actively. LTG Duration 8 weeks Assessment Summary Assessment Nate tolerated strengthening of R LE today, was careful not to irritate L LE given his concern after last visit. Physical Therapy Plan Next Visit Focus/Plan Next Note Type Treatment Note Next Visit Plan Progress with strengthening but careful with L LE. Continue to work on scar tissue.
--- NOTE | 2022-02-11 12:06 | PT.OTN ---
Current Diagnoses Pain in right knee (02/11/22) Other abnormalities of gait and mobility (02/11/22) Presence of unspecified artificial knee joint (02/11/22) Physical Therapy Treatment Note PT-OP-A Visit Information Start: 01/05/22 15:42 Freq: Status: Active Protocol: Document 02/11/22 11:16 MA (Rec: 02/11/22 12:05 MA [id number]) Out-Patient Physical Therapy Visit Information Visit Information Visit Type Treatment Note Visit Start Time 11:15 Visit Stop Time 12:00 Total Visit Minutes 45 Visit Number 8 Number of SENIOR LOGISTICS MANAGER Visits 1 PT-OP-B Current Condition Start: 01/05/22 15:42 Freq: Status: Active Protocol: Document 01/12/22 10:20 AMB (Rec: 01/12/22 10:39 AMB [id number]) Current Condition History of Current Condition Onset Date 01/04/22 Current Complaints R TKA revision History of Current Condition Nate attends PT after R TKA revision. 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 Does have pain in the left knee. No stairs, lives with his mom, his daugher drove him here today. Reports chronic back pain. Released from the hospital same day so wasn't given exercises, voices concern about over doing it. 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 PT-OP-G Mobility & Gait Start: 01/05/22 15:42 Freq: Status: Active Protocol: Document 01/12/22 10:15 AMB (Rec: 01/13/22 15:04 AMB [id number]) OP Mobility Evaluation Transfers Sit to Stand independent- pt tends to put more weight on L leg OP Gait Assessment Comments Gait Comments Pt ambulates with slight step to gait pattern, tending not to go into full knee extension PT-OP-J Posture/Palpation/Skin Start: 01/05/22 15:42 Freq: Status: Active Protocol: Document 01/12/22 10:15 AMB (Rec: 01/13/22 15:04 AMB [id number]) Skin Assessment Incisional Assessment Incision Appearance/Comments Pt wearing lali hose to mid thigh, Scar is healing appropriately no redness, mild swelling around knee but not pitting in foot, no significant bruising, PT-OP-K Range of Motion Start: 01/05/22 15:42 Freq: Status: Active Protocol: Document 01/12/22 10:20 AMB (Rec: 01/12/22 10:39 AMB [id number]) Knee Goniometric Range of Motion Knee Left Patient Position Supine Flexion Active (degrees) 140 Right Patient Position Supine Flexion Active (degrees) 110 Extension Active (degrees) 3 PT-OP-M Strength Start: 01/05/22 15:42 Freq: Status: Active Protocol: Document 01/12/22 10:15 AMB (Rec: 01/13/22 15:04 AMB [id number]) Hip Strength Hip Manual Muscle Testing Right Flexion (L2) 4 Good Extension (S1) 4+ Good+ Knee Strength Knee Manual Muscle Testing Right Flexion (S2) 4+ Good+ Extension (L3) 3+ Fair+ PT-OP-Q Treatments Start: 01/05/22 15:42 Freq: Status: Active Protocol: Document 02/11/22 11:16 MA (Rec: 02/11/22 12:05 MA [id number]) Cardio Equipment Recumbent Elliptical (BiodeTukTuk) Duration (Minutes) 10 Resistance 7 Seat Position 9 Gym Equipment Shuttle Recovery Unilateral Squats Details R LE Resistance 37>50>62>75 Reps/Time 1x12 ea Therapeutic Exercises Supine Exercises SLR Reps/Minutes x8 Comments pt prefers performing small circles during hold Manual Therapy Treatment Soft Tissue Mobilization scar mobilization Body Location RLE scar and distal quads Mobilization Type Myofascial Release,Strumming, Sustained Pressure Body Position Supine PT-OP-T Assessment and Plan Start: 01/05/22 15:42 Freq: Status: Active Protocol: Document 02/11/22 11:16 MA (Rec: 02/11/22 12:05 MA [id number]) Physical Therapy Assessment Goals Three Impairment Functional movements Short Term Goal (STG) Steve will perform a full squat with good body mechanics and without an increase in baseline pain. STG Duration 4 weeks [facility] Goal (LTG) Steve will perform a full squat while lifting 10# without an increase in pain to simulate lifting a horses foot so he can return to his work. LTG Duration 8 weeks Two Impairment Gait Short Term Goal (STG) Steve will walk for 6 minutes over smooth terrain without an increase in knee pain. STG Duration 4 weeks Orthotic/Prosthetic Practitioner Goal (LTG) Steve will safely ascend and descend 1 flight of stairs without knee pain. LTG Duration 8 weeks One Impairment ROM Short Term Goal (STG) Steve will have neutral knee extension STG Duration 4 weeks [facility] Goal (LTG) Steve will increase his knee flexion to 130 degrees actively. LTG Duration 8 weeks Assessment Summary Assessment Pt has no pain with exercises today and has good R knee AROM . He reports doing HEP at home . Discussed working on performing HEP on bilateral LEs as much as possible to keep up strength of LLE before surgery next month. Physical Therapy Plan Frequency and Duration Frequency of Treatment 2x/Week Duration of Treatment 8 weeks Plan of Care Start Date 01/12/22 Plan of Care End Date 03/10/22 Therapeutic Interventions Therapeutic Interventions Gait Training,Home Exercise Program,Joint Mobilizations, Manual Therapy,Neuromuscular Re-education,Self-Care/Home Management,Therapeutic Activities,Therapeutic Exercises Modalities Cold Pack/Ice Massage,Electric Stimulation Next Visit Focus/Plan Next Note Type Treatment Note Next Visit Plan Progress with strengthening but careful with L LE. Continue to work on scar tissue.
--- NOTE | 2022-02-15 15:47 | PT.OTN ---
Current Diagnoses Pain in right knee (02/15/22) Other abnormalities of gait and mobility (02/15/22) Presence of unspecified artificial knee joint (02/15/22) Physical Therapy Treatment Note PT-OP-A Visit Information Start: 01/05/22 15:42 Freq: Status: Active Protocol: Document 02/15/22 10:45 AMB (Rec: 02/15/22 11:13 AMB [id number]) Out-Patient Physical Therapy Visit Information Visit Information Visit Type Treatment Note Visit Start Time 10:45 Visit Stop Time 11:15 Total Visit Minutes 30 Visit Number 9 PT-OP-B Current Condition Start: 01/05/22 15:42 Freq: Status: Active Protocol: Document 01/12/22 10:20 AMB (Rec: 01/12/22 10:39 AMB [id number]) Current Condition History of Current Condition Onset Date 01/04/22 Current Complaints R TKA revision History of Current Condition Nate attends PT after R TKA revision. 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 Does have pain in the left knee. No stairs, lives with his mom, his daugher drove him here today. Reports chronic back pain. Released from the hospital same day so wasn't given exercises, voices concern about over doing it. 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 PT-OP-G Mobility & Gait Start: 01/05/22 15:42 Freq: Status: Active Protocol: Document 01/12/22 10:15 AMB (Rec: 01/13/22 15:04 AMB [id number]) OP Mobility Evaluation Transfers Sit to Stand independent- pt tends to put more weight on L leg OP Gait Assessment Comments Gait Comments Pt ambulates with slight step to gait pattern, tending not to go into full knee extension PT-OP-J Posture/Palpation/Skin Start: 01/05/22 15:42 Freq: Status: Active Protocol: Document 01/12/22 10:15 AMB (Rec: 01/13/22 15:04 AMB [id number]) Skin Assessment Incisional Assessment Incision Appearance/Comments Pt wearing lali hose to mid thigh, Scar is healing appropriately no redness, mild swelling around knee but not pitting in foot, no significant bruising, PT-OP-K Range of Motion Start: 01/05/22 15:42 Freq: Status: Active Protocol: Document 01/12/22 10:20 AMB (Rec: 01/12/22 10:39 AMB [id number]) Knee Goniometric Range of Motion Knee Left Patient Position Supine Flexion Active (degrees) 140 Right Patient Position Supine Flexion Active (degrees) 110 Extension Active (degrees) 3 PT-OP-M Strength Start: 01/05/22 15:42 Freq: Status: Active Protocol: Document 01/12/22 10:15 AMB (Rec: 01/13/22 15:04 AMB [id number]) Hip Strength Hip Manual Muscle Testing Right Flexion (L2) 4 Good Extension (S1) 4+ Good+ Knee Strength Knee Manual Muscle Testing Right Flexion (S2) 4+ Good+ Extension (L3) 3+ Fair+ PT-OP-Q Treatments Start: 01/05/22 15:42 Freq: Status: Active Protocol: Document 02/15/22 10:45 AMB (Rec: 02/15/22 11:13 AMB [id number]) Cardio Equipment Recumbent Elliptical (Biodex) Duration (Minutes) 10 Resistance 7 Seat Position 9 Gym Equipment Shuttle Recovery Unilateral Squats Details R LE Resistance 37>50>75 Reps/Time 15 at 37, 30 at 50, 6 at 75 Therapeutic Exercises Standing Exercises 1 Standing Exercise Name squats at railing Reps/Minutes 10 Comments full per pt request PT-OP-T Assessment and Plan Start: 01/05/22 15:42 Freq: Status: Active Protocol: Document 02/15/22 10:45 AMB (Rec: 02/15/22 11:13 AMB [id number]) Physical Therapy Assessment Assessment Summary Assessment Pt doing well with progressing strengthening, quads to fatigue with higher resistance . Physical Therapy Plan Next Visit Focus/Plan Next Note Type Treatment Note Next Visit Plan Progress with strengthening but careful with Agustin VALDEZ
--- NOTE | 2022-02-18 12:02 | PT.OTN ---
Current Diagnoses Pain in right knee (02/18/22) Other abnormalities of gait and mobility (02/18/22) Presence of unspecified artificial knee joint (02/18/22) Physical Therapy Treatment Note PT-OP-A Visit Information Start: 01/05/22 15:42 Freq: Status: Active Protocol: Document 02/18/22 11:16 MA (Rec: 02/18/22 12:02 MA [id number]) Out-Patient Physical Therapy Visit Information Visit Information Visit Type Treatment Note Visit Start Time 11:15 Visit Stop Time 12:00 Total Visit Minutes 45 Visit Number 10 Number of PARTS DATA WRITER Visits 1 PT-OP-B Current Condition Start: 01/05/22 15:42 Freq: Status: Active Protocol: Document 01/12/22 10:20 AMB (Rec: 01/12/22 10:39 AMB [id number]) Current Condition History of Current Condition Onset Date 01/04/22 Current Complaints R TKA revision History of Current Condition Nate attends PT after R TKA revision. 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 Does have pain in the left knee. No stairs, lives with his mom, his daugher drove him here today. Reports chronic back pain. Released from the hospital same day so wasn't given exercises, voices concern about over doing it. 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 He reports he has pain when sitting in full squat on heels . L full knee replacement sx scheduled for March 01. PT-OP-G Mobility & Gait Start: 01/05/22 15:42 Freq: Status: Active Protocol: Document 01/12/22 10:15 AMB (Rec: 01/13/22 15:04 AMB [id number]) OP Mobility Evaluation Transfers Sit to Stand independent- pt tends to put more weight on L leg OP Gait Assessment Comments Gait Comments Pt ambulates with slight step to gait pattern, tending not to go into full knee extension PT-OP-J Posture/Palpation/Skin Start: 01/05/22 15:42 Freq: Status: Active Protocol: Document 01/12/22 10:15 AMB (Rec: 01/13/22 15:04 AMB [id number]) Skin Assessment Incisional Assessment Incision Appearance/Comments Pt wearing lali hose to mid thigh, Scar is healing appropriately no redness, mild swelling around knee but not pitting in foot, no significant bruising, PT-OP-K Range of Motion Start: 01/05/22 15:42 Freq: Status: Active Protocol: Document 01/12/22 10:20 AMB (Rec: 01/12/22 10:39 AMB [id number]) Knee Goniometric Range of Motion Knee Left Patient Position Supine Flexion Active (degrees) 140 Right Patient Position Supine Flexion Active (degrees) 110 Extension Active (degrees) 3 PT-OP-M Strength Start: 01/05/22 15:42 Freq: Status: Active Protocol: Document 01/12/22 10:15 AMB (Rec: 01/13/22 15:04 AMB [id number]) Hip Strength Hip Manual Muscle Testing Right Flexion (L2) 4 Good Extension (S1) 4+ Good+ Knee Strength Knee Manual Muscle Testing Right Flexion (S2) 4+ Good+ Extension (L3) 3+ Fair+ PT-OP-Q Treatments Start: 01/05/22 15:42 Freq: Status: Active Protocol: Document 02/18/22 11:16 MA (Rec: 02/18/22 12:02 MA [id number]) Cardio Equipment Recumbent Elliptical ([employer]) Duration (Minutes) 10 Resistance 7 Seat Position 9 Gym Equipment Shuttle Recovery Unilateral Squats Details R LE Resistance 37>50>75 Reps/Time 15, 15, 10 Therapeutic Exercises Standing Exercises 1 Standing Exercise Name squats at railing Reps/Minutes 15 Comments full heel to glutes per pt request Manual Therapy Treatment Soft Tissue Mobilization scar mobilization Body Location RLE scar and distal quads Mobilization Type Myofascial Release,Strumming, Sustained Pressure Body Position Supine PT-OP-T Assessment and Plan Start: 01/05/22 15:42 Freq: Status: Active Protocol: Document 02/18/22 11:16 MA (Rec: 02/18/22 12:02 MA [id number]) Physical Therapy Assessment Goals Three Impairment Functional movements Short Term Goal (STG) Steve will perform a full squat with good body mechanics and without an increase in baseline pain. STG Duration 4 weeks Residential Goal (LTG) Steve will perform a full squat while lifting 10# without an increase in pain to simulate lifting a horses foot so he can return to his work. LTG Duration 8 weeks Two Impairment Gait Short Term Goal (STG) Steve will walk for 6 minutes over smooth terrain without an increase in knee pain. STG Duration 4 weeks Journalism Professor Goal (LTG) Steve will safely ascend and descend 1 flight of stairs without knee pain. LTG Duration 8 weeks One Impairment ROM Short Term Goal (STG) Steve will have neutral knee extension STG Duration 4 weeks Journalism Professor Goal (LTG) Steve will increase his knee flexion to 130 degrees actively. LTG Duration 8 weeks Assessment Summary Assessment Pt has full R knee flexion and extension and is able to perform full squat where glutes rest on heels without increased pain today. He feels some tightness from R knee scar tissue but feels scar mobs in PT have been helping. Encouraged pt to continue HEP bilaterally to prepare for L knee surgery scheduled in two weeks. Physical Therapy Plan Frequency and Duration Frequency of Treatment 2x/Week Duration of Treatment 8 weeks Plan of Care Start Date 01/12/22 Plan of Care End Date 03/10/22 Therapeutic Interventions Therapeutic Interventions Gait Training,Home Exercise Program,Joint Mobilizations, Manual Therapy,Neuromuscular Re-education,Self-Care/Home Management,Therapeutic Activities,Therapeutic Exercises Modalities Cold Pack/Ice Massage,Electric Stimulation Next Visit Focus/Plan Next Note Type Treatment Note Next Visit Plan Progress with strengthening but careful with L LE.
--- NOTE | 2022-02-22 12:08 | PT.OTN ---
Current Diagnoses Pain in right knee (02/22/22) Other abnormalities of gait and mobility (02/22/22) Presence of unspecified artificial knee joint (02/22/22) Physical Therapy Treatment Note PT-OP-A Visit Information Start: 01/05/22 15:42 Freq: Status: Active Protocol: Document 02/22/22 10:45 AMB (Rec: 02/22/22 11:17 AMB [id number]) Out-Patient Physical Therapy Visit Information Visit Information Visit Type Treatment Note Visit Start Time 10:45 Visit Stop Time 11:15 Total Visit Minutes 45 Visit Number 11 PT-OP-B Current Condition Start: 01/05/22 15:42 Freq: Status: Active Protocol: Document 01/12/22 10:20 AMB (Rec: 01/12/22 10:39 AMB [id number]) Current Condition History of Current Condition Onset Date 01/04/22 Current Complaints R TKA revision History of Current Condition Nate attends PT after R TKA revision. 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 Does have pain in the left knee. No stairs, lives with his mom, his daugher drove him here today. Reports chronic back pain. Released from the hospital same day so wasn't given exercises, voices concern about over doing it. 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 Personal Factors Other Personal Factors That May Effect Blind, chronic back pain, Therapy/Recovery PT-OP-C Subjective Start: 01/05/22 15:42 Freq: Status: Active Protocol: Document 02/22/22 10:45 AMB (Rec: 02/22/22 11:17 AMB [id number]) OP-PT Subjective Patient Comments Patient Comments Pt has been working on full squats PT-OP-G Mobility & Gait Start: 01/05/22 15:42 Freq: Status: Active Protocol: Document 01/12/22 10:15 AMB (Rec: 01/13/22 15:04 AMB [id number]) OP Mobility Evaluation Transfers Sit to Stand independent- pt tends to put more weight on L leg OP Gait Assessment Comments Gait Comments Pt ambulates with slight step to gait pattern, tending not to go into full knee extension PT-OP-J Posture/Palpation/Skin Start: 01/05/22 15:42 Freq: Status: Active Protocol: Document 01/12/22 10:15 AMB (Rec: 01/13/22 15:04 AMB [id number]) Skin Assessment Incisional Assessment Incision Appearance/Comments Pt wearing lali hose to mid thigh, Scar is healing appropriately no redness, mild swelling around knee but not pitting in foot, no significant bruising, PT-OP-K Range of Motion Start: 01/05/22 15:42 Freq: Status: Active Protocol: Document 01/12/22 10:20 AMB (Rec: 01/12/22 10:39 AMB [id number]) Knee Goniometric Range of Motion Knee Left Patient Position Supine Flexion Active (degrees) 140 Right Patient Position Supine Flexion Active (degrees) 110 Extension Active (degrees) 3 PT-OP-M Strength Start: 01/05/22 15:42 Freq: Status: Active Protocol: Document 01/12/22 10:15 AMB (Rec: 01/13/22 15:04 AMB [id number]) Hip Strength Hip Manual Muscle Testing Right Flexion (L2) 4 Good Extension (S1) 4+ Good+ Knee Strength Knee Manual Muscle Testing Right Flexion (S2) 4+ Good+ Extension (L3) 3+ Fair+ PT-OP-Q Treatments Start: 01/05/22 15:42 Freq: Status: Active Protocol: Document 02/22/22 10:45 AMB (Rec: 02/22/22 11:17 AMB [id number]) Cardio Equipment Recumbent Elliptical ([employer]) Duration (Minutes) 10 Resistance 7 Seat Position 9 Gym Equipment Shuttle Recovery Unilateral Squats Details R LE Resistance 37>50>75 Reps/Time 15, 15, 10 Therapeutic Exercises Standing Exercises 1 Standing Exercise Name squats at railing Reps/Minutes 15 Comments full heel to glutes per pt request PT-OP-T Assessment and Plan Start: 01/05/22 15:42 Freq: Status: Active Protocol: Document 02/22/22 10:45 AMB (Rec: 02/22/22 11:17 AMB [id number]) Physical Therapy Assessment Goals Three Impairment Functional movements Short Term Goal (STG) Steve will perform a full squat with good body mechanics and without an increase in baseline pain. STG Duration 4 weeks Long-Term Goal (LTG) Steve will perform a full squat while lifting 10# without an increase in pain to simulate lifting a horses foot so he can return to his work. LTG Duration 8 weeks Two Impairment Gait Short Term Goal (STG) Steve will walk for 6 minutes over smooth terrain without an increase in knee pain. STG Duration 4 weeks Long-Term Goal (LTG) Steve will safely ascend and descend 1 flight of stairs without knee pain. LTG Duration 8 weeks One Impairment ROM Short Term Goal (STG) Steve will have neutral knee extension STG Duration 4 weeks Assistant Director Of Admissions Goal (LTG) Steve will increase his knee flexion to 130 degrees actively. LTG Duration 8 weeks Assessment Summary Assessment Pt tolerated full squats today , less feeling of restriction in scar tissue today, but did encourage pt to work on his scar tissue. Physical Therapy Plan Next Visit Focus/Plan Next Note Type Treatment Note Next Visit Plan Progress with strengthening but careful with Agustin VALDEZ
--- NOTE | 2022-02-25 13:01 | PT.OTN ---
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 Does have pain in the left knee. No stairs, lives with his mom, his daugher drove him here today. Reports chronic back pain. Released from the hospital same day so wasn't given exercises, voices concern about over doing it. 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 PT-OP-G Mobility & Gait Start: 01/05/22 15:42 Freq: Status: Active Protocol: Document 01/12/22 10:15 AMB (Rec: 01/13/22 15:04 AMB [id number]) OP Mobility Evaluation Transfers Sit to Stand independent- pt tends to put more weight on L leg OP Gait Assessment Comments Gait Comments Pt ambulates with slight step to gait pattern, tending not to go into full knee extension PT-OP-J Posture/Palpation/Skin Start: 01/05/22 15:42 Freq: Status: Active Protocol: Document 01/12/22 10:15 AMB (Rec: 01/13/22 15:04 AMB [id number]) Skin Assessment Incisional Assessment Incision Appearance/Comments Pt wearing lali hose to mid thigh, Scar is healing appropriately no redness, mild swelling around knee but not pitting in foot, no significant bruising, PT-OP-K Range of Motion Start: 01/05/22 15:42 Freq: Status: Active Protocol: Document 01/12/22 10:20 AMB (Rec: 01/12/22 10:39 AMB [id number]) Knee Goniometric Range of Motion Knee Left Patient Position Supine Flexion Active (degrees) 140 Right Patient Position Supine Flexion Active (degrees) 110 Extension Active (degrees) 3 PT-OP-M Strength Start: 01/05/22 15:42 Freq: Status: Active Protocol: Document 01/12/22 10:15 AMB (Rec: 01/13/22 15:04 AMB [id number]) Hip Strength Hip Manual Muscle Testing Right Flexion (L2) 4 Good Extension (S1) 4+ Good+ Knee Strength Knee Manual Muscle Testing Right Flexion (S2) 4+ Good+ Extension (L3) 3+ Fair+ PT-OP-Q Treatments Start: 01/05/22 15:42 Freq: Status: Active Protocol: Document 02/25/22 12:11 MA (Rec: 02/25/22 13:00 MA [id number]) Cardio Equipment Recumbent Elliptical ([employer]) Duration (Minutes) 10 Resistance 7 Seat Position 9 Gym Equipment Shuttle Recovery Unilateral Squats Details R LE Resistance 37>50>75 Reps/Time 15, 15, 10 Therapeutic Exercises Standing Exercises 3 Standing Exercise Name lunges - RLE fwd only Side right Reps/Minutes x10 Comments rail prn for balance - pt did not want to push LLE before sx 1 Standing Exercise Name squats at railing Reps/Minutes 15 Comments full heel to glutes per pt request Gait Training Gait Activity Stairs Device Used Single rail Distance/Duration 1x 4 steps Comments ascending step-over, descending step-to leading with LLE Manual Therapy Treatment Soft Tissue Mobilization scar mobilization Body Location RLE scar and distal quads Mobilization Type Myofascial Release,Strumming, Sustained Pressure Body Position Supine PT-OP-T Assessment and Plan Start: 01/05/22 15:42 Freq: Status: Active Protocol: Document 02/25/22 12:11 MA (Rec: 02/25/22 13:00 MA [id number]) Physical Therapy Assessment Goals Three Impairment Functional movements Short Term Goal (STG) Steve will perform a full squat with good body mechanics and without an increase in baseline pain. STG Duration achieved Usp Goal (LTG) Steve will perform a full squat while lifting 10# without an increase in pain to simulate lifting a horses foot so he can return to his work. LTG Duration 8 weeks Two Impairment Gait Short Term Goal (STG) Steve will walk for 6 minutes over smooth terrain without an increase in knee pain. STG Duration achieved Usp Goal (LTG) Steve will safely ascend and descend 1 flight of stairs without knee pain. LTG Duration achieved One Impairment ROM Short Term Goal (STG) Steve will have neutral knee extension STG Duration 4 weeks Optical Design Engineer Goal (LTG) Steve will increase his knee flexion to 130 degrees actively. LTG Duration 8 weeks Assessment Summary Assessment Pt feels scar tissue broke up after scar mobs and STM to distal quads. He requests doing exercises only on RLE this session since he does not want to cause any issues with LLE before his surgery on Tuesday. He is able to perform stairs, ascending step -over-step and descending step -to due to LLE pain. Physical Therapy Plan Frequency and Duration Frequency of Treatment 2x/Week Duration of Treatment 8 weeks Plan of Care Start Date 01/12/22 Plan of Care End Date 03/10/22 Therapeutic Interventions Therapeutic Interventions Gait Training,Home Exercise Program,Joint Mobilizations, Manual Therapy,Neuromuscular Re-education,Self-Care/Home Management,Therapeutic Activities,Therapeutic Exercises Modalities Cold Pack/Ice Massage,Electric Stimulation Next Visit Focus/Plan Next Note Type Treatment Note Next Visit Plan D/C
--- NOTE | 2022-02-26 14:19 | PT.OPDS ---
Current Diagnoses Pain in right knee (02/25/22) Other abnormalities of gait and mobility (02/25/22) Presence of unspecified artificial knee joint (02/25/22) Visit Care Team Role Provider Type Katia Cid DO Family Provider Physician Primary Care Provider Specialty: Family Practice Address: [address] [place] [address], [facility], [place], [address] Email: [email or web address] Rafael Delgadillo MD Attending Provider Non-Staff Referring Provider Specialty: Orthopedics Address: [address] [place] [address], [place], [address] Email: Visit Number Visit Number 12 Discharge Summary PT-OP-B Current Condition Start: 01/05/22 15:42 Freq: Status: Active Protocol: Document 01/12/22 10:20 AMB (Rec: 01/12/22 10:39 AMB [id number]) Current Condition History of Current Condition Onset Date 01/04/22 Current Complaints R TKA revision History of Current Condition Nate attends PT after R TKA revision. 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 Does have pain in the left knee. No stairs, lives with his mom, his daugher drove him here today. Reports chronic back pain. Released from the hospital same day so wasn't given exercises, voices concern about over doing it. 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 PT-OP-G Mobility & Gait Start: 01/05/22 15:42 Freq: Status: Active Protocol: Document 01/12/22 10:15 AMB (Rec: 01/13/22 15:04 AMB [id number]) OP Mobility Evaluation Transfers Sit to Stand independent- pt tends to put more weight on L leg OP Gait Assessment Comments Gait Comments Pt ambulates with slight step to gait pattern, tending not to go into full knee extension PT-OP-J Posture/Palpation/Skin Start: 01/05/22 15:42 Freq: Status: Active Protocol: Document 01/12/22 10:15 AMB (Rec: 01/13/22 15:04 AMB [id number]) Skin Assessment Incisional Assessment Incision Appearance/Comments Pt wearing lali hose to mid thigh, Scar is healing appropriately no redness, mild swelling around knee but not pitting in foot, no significant bruising, PT-OP-K Range of Motion Start: 01/05/22 15:42 Freq: Status: Active Protocol: Document 01/12/22 10:20 AMB (Rec: 01/12/22 10:39 AMB [id number]) Knee Goniometric Range of Motion Knee Left Patient Position Supine Flexion Active (degrees) 140 Right Patient Position Supine Flexion Active (degrees) 110 Extension Active (degrees) 3 PT-OP-M Strength Start: 01/05/22 15:42 Freq: Status: Active Protocol: Document 01/12/22 10:15 AMB (Rec: 01/13/22 15:04 AMB [id number]) Hip Strength Hip Manual Muscle Testing Right Flexion (L2) 4 Good Extension (S1) 4+ Good+ Knee Strength Knee Manual Muscle Testing Right Flexion (S2) 4+ Good+ Extension (L3) 3+ Fair+ PT-OP-T Assessment and Plan Start: 01/05/22 15:42 Freq: Status: Active Protocol: Document 02/26/22 14:15 AMB (Rec: 02/26/22 14:19 AMB [id number]) Physical Therapy Assessment Goals Three Impairment Functional movements Short Term Goal (STG) Steve will perform a full squat with good body mechanics and without an increase in baseline pain. STG Duration achieved Racing Car Driver Goal (LTG) Steve will perform a full squat while lifting 10# without an increase in pain to simulate lifting a horses foot so he can return to his work. LTG Duration not met Two Impairment Gait Short Term Goal (STG) Steve will walk for 6 minutes over smooth terrain without an increase in knee pain. STG Duration achieved Alf Goal (LTG) Steve will safely ascend and descend 1 flight of stairs without knee pain. LTG Duration achieved One Impairment ROM Short Term Goal (STG) Steve will have neutral knee extension STG Duration met Racing Car Driver Goal (LTG) Steve will increase his knee flexion to 130 degrees actively. LTG Duration met Assessment Summary Assessment Nate is having surgery next week for his left knee, therefore this account is discharged. Overall his ROM was excellent, but hecontinued to need to strengthen which was limited by his left knee weakness. Physical Therapy Plan Discharge Physical Therapy Discharge Reasons Change in Medical Status
== END 2022-03-01 10:34 ==
LOC: PHYS 12:00
PROVIDERS: Family Provider Family Medicine; PCP Family Medicine; Referring Provider Orthopaedic Surgery; Visit Provider Orthopaedic Surgery
DX: Z96.659 Presence of unspecified artificial knee joint (principal); M25.561 Pain in right knee; R26.89 Other abnormalities of gait and mobility
CPT/HCPCS: 97110; 97140; 97162; 97535

== ENCOUNTER → 2022-02-26 13:13 | Outpatient (CLI) | payer MEDICARE, SELFPAY ==
[2022-02-26 14:29] LABS: COVID-19 CEPHEID PCR (VTM/NP) Negative (Negative)
== END ==
PROVIDERS: Family Provider Family Medicine; PCP Family Medicine; Visit Provider Family Medicine Sleep Medicine
DX: Z20.822 Contact with and (suspected) exposure to COVID-19 (principal)
CPT/HCPCS: C9803; U0003; U0005

== ENCOUNTER → 2022-05-04 10:40 | Outpatient (CLI) | payer MEDICARE, SELFPAY ==
[2022-05-04 13:31] LABS: Prostate Specific Antigen 9.49 ng/mL (0.10-4.00)
== END ==
PROVIDERS: Family Provider Family Medicine; PCP Family Medicine; Referring Provider Urology; Visit Provider Urology
DX: C61 Malignant neoplasm of prostate (principal)
CPT/HCPCS: 36415; 84153

== ENCOUNTER 2022-09-07 10:30 | Outpatient (RCR) | payer MEDICARE, SELFPAY ==
--- NOTE | 2022-04-27 20:21 | PT.OIE ---
Current Diagnoses Presence of right artificial knee joint (04/27/22) Presence of left artificial knee joint (04/27/22) Past Medical History (Last Reviewed 11/09/21 @ 07:31 by Katia Cid DO) Anxiety Benign prostatic hyperplasia Blindness (11/21/17) Chronic knee pain Chronic prescription opiate use Depression Elevated PSA Lumbar spine pain Vision disorder Past Surgical History (Last Reviewed 11/09/21 @ 07:31 by Katia Cid DO) History of knee replacement Visit Care Team Role Provider Type Katia Cid DO Family Provider Physician Primary Care Provider Specialty: Family Practice Address: [address] [place] [address] [place], [address] Email: [email or web address] Rafael Delgadillo MD Attending Provider Non-Staff Referring Provider Specialty: Orthopedics Address: [address] [place] [address], [facility] Email: Physical Therapy Initial Evaluation PT-OP-A Visit Information Start: 04/27/22 07:26 Freq: Status: Active Protocol: Document 04/27/22 10:06 AMB (Rec: 04/27/22 10:21 AMB [id number]) Out-Patient Physical Therapy Visit Information Visit Information Visit Type Initial Evaluation Visit Start Time 09:45 Visit Stop Time 10:30 Total Visit Minutes 45 Visit Number 1 PT-OP-B Current Condition Start: 04/27/22 07:26 Freq: Status: Active Protocol: Document 04/27/22 09:45 AMB (Rec: 04/28/22 16:00 AMB [id number]) Current Condition History of Current Condition Onset Date 04/19/22 Current Complaints L TKA History of Current Condition Nate had L TKA on 04/19. He recently had R TKA revision. He also has lumbar spondylosis and is blind. He lives on [facility] (ferr to attend PT). 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 Personal Factors Other Personal Factors That May Effect Blind, back pain Therapy/Recovery PT-OP-C Subjective Start: 04/27/22 07:26 Freq: Status: Active Protocol: Document 04/27/22 09:45 AMB (Rec: 04/28/22 15:53 AMB [id number]) Patient Questionnaires Lower Extremity Functional Scale LEFS Score 8 LEFS Impairment 80 to 99% Impaired (Score 1-16 ) OP-PT Pain Assessment Comments Pain Comments 4/10 with pain meds PT-OP-G Mobility & Gait Start: 04/27/22 07:26 Freq: Status: Active Protocol: Document 04/27/22 09:45 AMB (Rec: 04/28/22 15:53 AMB [id number]) OP Gait Assessment Comments Gait Comments Pt ambulates with antalgic gait, short step length. Crutch due to blindness. PT-OP-J Posture/Palpation/Skin Start: 04/27/22 07:26 Freq: Status: Active Protocol: Document 04/27/22 09:45 AMB (Rec: 04/27/22 11:19 AMB [id number]) Skin Assessment Circumference Measurement 2 Location L knee mid patella Measurement (Centimeters) 42 1 Location R knee mid patella Measurement (Centimeters) 38 PT-OP-K Range of Motion Start: 04/27/22 07:26 Freq: Status: Active Protocol: Document 04/27/22 09:45 AMB (Rec: 04/28/22 15:53 AMB [id number]) Knee Goniometric Range of Motion Knee Right Flexion Active (degrees) 155 Left Flexion Active (degrees) 81 Comments missing 11 degrees from neutral extension PT-OP-M Strength Start: 04/27/22 07:26 Freq: Status: Active Protocol: Document 04/27/22 09:45 AMB (Rec: 04/28/22 15:53 AMB [id number]) Knee Strength Knee Manual Muscle Testing Left Flexion (S2) 4 Good Extension (L3) 3 Fair PT-OP-Q Treatments Start: 04/27/22 07:26 Freq: Status: Active Protocol: Document 04/27/22 09:45 AMB (Rec: 04/27/22 10:54 AMB [id number]) Therapeutic Exercises Supine Exercises quad set Side left Reps/Minutes 10 terminal knee extension Side left Reps/Minutes 10 heel slide Side left Reps/Minutes 10 Manual Therapy Treatment Soft Tissue Mobilization edema massage Body Location L Knee Comments with passive flexion and extension PT-OP-T Assessment and Plan Start: 04/27/22 07:26 Freq: Status: Active Protocol: Document 04/27/22 09:45 AMB (Rec: 04/28/22 16:00 AMB [id number]) Physical Therapy Assessment Rehab Potential Rehabilitation Potential Good Evaluation Complexity Number of Personal Factors/Comorbidities 1-2 Number of Body Systems Impaired 4 or More Clinical Presentation at Evaluation Evolving Impairments Impairments Edema,Gait,ROM,Strength Goals Three Impairment Strength Short Term Goal (STG) Nate will move from sit to stand with even weightbearing to show improved knee strength . 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 LTG Duration 10 weeks Two Impairment Gait Short Term Goal (STG) Nate will ambulate with AD over smooth surfaces for 5 minutes without antalgic gait. STG Duration 4 weeks Alf Goal (LTG) Nate will ambulate without AD over uneven terrain for 6 minutes without loss of balance or antalgic gait. LTG Duration 10 weeks One Impairment ROM Short Term Goal (STG) Nate will improve his knee flexion range to 110 degrees. STG Duration [address] Reporter Goal (LTG) Nate will improve his knee range to neutral extension. LTG Duration 10 weeks Assessment Summary Assessment Nate attends physical therapy s/p left TKA. 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 Physical Therapy Plan Frequency and Duration Frequency of Treatment 2x/Week Duration of Treatment 10 weeks Plan of Care Start Date 04/27/22 Plan of Care End Date 07/06/22 Therapeutic Interventions Therapeutic Interventions Gait Training,Home Exercise Program,Manual Therapy, Neuromuscular Re-education, Self-Care/Home Management, Therapeutic Activities, Therapeutic Exercises Modalities Cold Pack/Ice Massage,Electric Stimulation Next Visit Focus/Plan Next Note Type Treatment Note Next Visit Plan Recumbent bike, progress quad strength.
--- NOTE | 2022-04-27 20:26 | PT.OPPOC ---
Physical, Occupational & Speech Therapy At [facility] Current Diagnoses Presence of right artificial knee joint (04/27/22) Presence of left artificial knee joint (04/27/22) Visit Care Team Role Provider Type Katia Cid DO Family Provider Physician Primary Care Provider Specialty: Family Practice Address: [address] [place] [address], [place], [address] Email: [email or web address] Rafael Delgadillo MD Attending Provider Non-Staff Referring Provider Specialty: Orthopedics Address: [address] [place] [address], [place], [address] Email: Plan Of Care PT-OP-T Assessment and Plan Start: 04/27/22 07:26 Freq: Status: Active Protocol: Document 04/27/22 09:45 AMB (Rec: 04/28/22 16:00 AMB [id number]) Physical Therapy Assessment Rehab Potential Rehabilitation Potential Good Evaluation Complexity Number of Personal Factors/Comorbidities 1-2 Number of Body Systems Impaired 4 or More Clinical Presentation at Evaluation Evolving Impairments Impairments Edema,Gait,ROM,Strength Goals Three Impairment Strength Short Term Goal (STG) Nate will move from sit to stand with even weightbearing to show improved knee strength . 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 LTG Duration 10 weeks Two Impairment Gait Short Term Goal (STG) Nate will ambulate with AD over smooth surfaces for 5 minutes without antalgic gait. STG Duration 4 weeks Bill Hiker Goal (LTG) Nate will ambulate without AD over uneven terrain for 6 minutes without loss of balance or antalgic gait. LTG Duration 10 weeks One Impairment ROM Short Term Goal (STG) Nate will improve his knee flexion range to 110 degrees. STG Duration 4 weeks Penitentiary Goal (LTG) Nate will improve his knee range to neutral extension. LTG Duration 10 weeks Assessment Summary Assessment Nate attends physical therapy s/p left TKA. 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 Physical Therapy Plan Frequency and Duration Frequency of Treatment 2x/Week Duration of Treatment 10 weeks Plan of Care Start Date 04/27/22 Plan of Care End Date 07/06/22 Therapeutic Interventions Therapeutic Interventions Gait Training,Home Exercise Program,Manual Therapy, Neuromuscular Re-education, Self-Care/Home Management, Therapeutic Activities, Therapeutic Exercises Modalities Cold Pack/Ice Massage,Electric Stimulation Next Visit Focus/Plan Next Note Type Treatment Note Next Visit Plan Recumbent bike, progress quad strength. Plan of Care Dates Plan of Care Start Date 04/27/22 Plan of Care End Date 07/06/22 Electronically Signed by: Kristen Gamez, PT 04/29/222025 If you are in agreement with this Plan of Care, please return a signed and dated copy. I have reviewed this Plan of Care and certify that the skilled therapy services above are required to meet the patient?s needs. Physician Signature Date Printed Name and Credentials Clinical Instructor Signature Printed Name and Credentials
--- NOTE | 2022-05-04 10:58 | PT.OTN ---
Current Diagnoses Presence of artificial knee joint, bilateral (05/04/22) Physical Therapy Treatment Note PT-OP-A Visit Information Start: 04/27/22 07:26 Freq: Status: Active Protocol: Document 05/04/22 09:45 AMB (Rec: 05/04/22 10:58 AMB [id number]) Out-Patient Physical Therapy Visit Information Visit Information Visit Type Treatment Note Visit Start Time 09:50 Visit Stop Time 10:30 Total Visit Minutes 40 Visit Number 2 PT-OP-B Current Condition Start: 04/27/22 07:26 Freq: Status: Active Protocol: Document 04/27/22 09:45 AMB (Rec: 04/28/22 16:00 AMB [id number]) Current Condition History of Current Condition Onset Date 04/19/22 Current Complaints L TKA History of Current Condition Nate had L TKA on 04/19. He recently had R TKA revision. 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 He lives on [facility] (ferr to attend PT). 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 Personal Factors Other Personal Factors That May Effect Blind, back pain Therapy/Recovery PT-OP-C Subjective Start: 04/27/22 07:26 Freq: Status: Active Protocol: Document 05/04/22 09:45 AMB (Rec: 05/04/22 10:58 AMB [id number]) OP-PT Subjective Patient Comments Patient Comments Pt reports difficult night sleep, MD visit went well. Still feels swollen/stiff. PT-OP-G Mobility & Gait Start: 04/27/22 07:26 Freq: Status: Active Protocol: Document 04/27/22 09:45 AMB (Rec: 04/28/22 15:53 AMB [id number]) OP Gait Assessment Comments Gait Comments Pt ambulates with antalgic gait, short step length. Crutch due to blindness. PT-OP-J Posture/Palpation/Skin Start: 04/27/22 07:26 Freq: Status: Active Protocol: Document 04/27/22 09:45 AMB (Rec: 04/27/22 11:19 AMB [id number]) Skin Assessment Circumference Measurement 2 Location L knee mid patella Measurement (Centimeters) 42 1 Location R knee mid patella Measurement (Centimeters) 38 PT-OP-K Range of Motion Start: 04/27/22 07:26 Freq: Status: Active Protocol: Document 04/27/22 09:45 AMB (Rec: 04/28/22 15:53 AMB [id number]) Knee Goniometric Range of Motion Knee Right Flexion Active (degrees) 155 Left Flexion Active (degrees) 81 Comments missing 11 degrees from neutral extension PT-OP-M Strength Start: 04/27/22 07:26 Freq: Status: Active Protocol: Document 04/27/22 09:45 AMB (Rec: 04/28/22 15:53 AMB [id number]) Knee Strength Knee Manual Muscle Testing Left Flexion (S2) 4 Good Extension (L3) 3 Fair PT-OP-Q Treatments Start: 04/27/22 07:26 Freq: Status: Active Protocol: Document 05/04/22 09:45 AMB (Rec: 05/04/22 10:58 AMB [id number]) Cardio Equipment Recumbent Stepper (Sci-Fit) Duration (Minutes) 7 Resistance 1.5 Seat Position 12 Therapeutic Exercises Supine Exercises quad set Side left Reps/Minutes 10 terminal knee extension Side left Reps/Minutes 10 heel slide Side left Reps/Minutes 10 Standing Exercises mini squat Reps/Minutes 10 Comments at railing Manual Therapy Treatment Soft Tissue Mobilization edema massage Body Location L Knee Comments with passive flexion and extension PT-OP-T Assessment and Plan Start: 04/27/22 07:26 Freq: Status: Active Protocol: Document 05/04/22 09:45 AMB (Rec: 05/04/22 10:58 AMB [id number]) Physical Therapy Assessment Goals Three Impairment Strength Short Term Goal (STG) Nate will move from sit to stand with even weightbearing to show improved knee strength . 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 LTG Duration 10 weeks Two Impairment Gait Short Term Goal (STG) Nate will ambulate with AD over smooth surfaces for 5 minutes without antalgic gait. STG Duration 4 weeks Employment Law Specialist Goal (LTG) Nate will ambulate without AD over uneven terrain for 6 minutes without loss of balance or antalgic gait. LTG Duration 10 weeks One Impairment ROM Short Term Goal (STG) Nate will improve his knee flexion range to 110 degrees. STG Duration 4 weeks Snf Goal (LTG) Nate will improve his knee range to neutral extension. LTG Duration 10 weeks Assessment Summary Assessment Nate tolerated exercises well and his ROM is excellent for how recently his surgery was. He continues to have swelling and discomfort, encouraged in continued icing and gentle walks. Physical Therapy Plan Next Visit Focus/Plan Next Note Type Treatment Note Next Visit Plan Recumbent bike, progress quad strength, consider mini squats for HEP.
--- NOTE | 2022-05-07 15:36 | PT.OTN ---
Current Diagnoses Presence of artificial knee joint, bilateral (05/07/22) Physical Therapy Treatment Note PT-OP-A Visit Information Start: 04/27/22 07:26 Freq: Status: Active Protocol: Document 05/07/22 14:32 AMB (Rec: 05/07/22 14:49 AMB [id number]) Out-Patient Physical Therapy Visit Information Visit Information Visit Type Treatment Note Visit Start Time 14:30 Visit Stop Time 15:15 Total Visit Minutes 45 Visit Number 3 PT-OP-B Current Condition Start: 04/27/22 07:26 Freq: Status: Active Protocol: Document 04/27/22 09:45 AMB (Rec: 04/28/22 16:00 AMB [id number]) Current Condition History of Current Condition Onset Date 04/19/22 Current Complaints L TKA History of Current Condition Nate had L TKA on 04/19. He recently had R TKA revision. 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 He lives on [facility] ([facility] to [facility]). 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 Personal Factors Other Personal Factors That May Effect Blind, back pain Therapy/Recovery PT-OP-C Subjective Start: 04/27/22 07:26 Freq: Status: Active Protocol: Document 05/07/22 14:32 AMB (Rec: 05/07/22 14:49 AMB [id number]) OP-PT Subjective Patient Comments Patient Comments Pt is no longer wearing compression sock, swelling is ok. PT-OP-G Mobility & Gait Start: 04/27/22 07:26 Freq: Status: Active Protocol: Document 04/27/22 09:45 AMB (Rec: 04/28/22 15:53 AMB [id number]) OP Gait Assessment Comments Gait Comments Pt ambulates with antalgic gait, short step length. Crutch due to blindness. PT-OP-J Posture/Palpation/Skin Start: 04/27/22 07:26 Freq: Status: Active Protocol: Document 04/27/22 09:45 AMB (Rec: 04/27/22 11:19 AMB [id number]) Skin Assessment Circumference Measurement 2 Location L knee mid patella Measurement (Centimeters) 42 1 Location R knee mid patella Measurement (Centimeters) 38 PT-OP-K Range of Motion Start: 04/27/22 07:26 Freq: Status: Active Protocol: Document 04/27/22 09:45 AMB (Rec: 07/06/22 15:53 AMB [id number]) Knee Goniometric Range of Motion Knee Right Flexion Active (degrees) 155 Left Flexion Active (degrees) 81 Comments missing 11 degrees from neutral extension PT-OP-M Strength Start: 04/27/22 07:26 Freq: Status: Active Protocol: Document 04/27/22 09:45 AMB (Rec: 04/28/22 15:53 AMB [id number]) Knee Strength Knee Manual Muscle Testing Left Flexion (S2) 4 Good Extension (L3) 3 Fair PT-OP-Q Treatments Start: 04/27/22 07:26 Freq: Status: Active Protocol: Document 05/07/22 14:32 AMB (Rec: 05/07/22 14:49 AMB [id number]) Cardio Equipment Recumbent Stepper (Sci-Fit) Duration (Minutes) 7 Resistance 1.5 Seat Position 12 Therapeutic Exercises Supine Exercises quad set Side left Reps/Minutes 10 terminal knee extension Side left Reps/Minutes 10 heel slide Side left Reps/Minutes 10 Standing Exercises mini squat Reps/Minutes 10 Comments at railing Manual Therapy Treatment Soft Tissue Mobilization edema massage Body Location L Knee Comments with passive flexion and extension PT-OP-T Assessment and Plan Start: 04/27/22 07:26 Freq: Status: Active Protocol: Document 05/07/22 14:32 AMB (Rec: 05/07/22 14:49 AMB [id number]) Physical Therapy Assessment Goals Three Impairment Strength Short Term Goal (STG) Nate will move from sit to stand with even weightbearing to show improved knee strength . 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 LTG Duration 10 weeks Two Impairment Gait Short Term Goal (STG) Nate will ambulate with AD over smooth surfaces for 5 minutes without antalgic gait. STG Duration 4 weeks Shelter Goal (LTG) Nate will ambulate without AD over uneven terrain for 6 minutes without loss of balance or antalgic gait. LTG Duration 10 weeks One Impairment ROM Short Term Goal (STG) Nate will improve his knee flexion range to 110 degrees. STG Duration 4 weeks Elementary School Teacher Goal (LTG) Nate will improve his knee range to neutral extension. LTG Duration 10 weeks Assessment Summary Assessment Nate is doing well. Less antalgic gait this session, worked on knee extension today as pt is limited in this range still. Squats are still limited, encouraged small squats for now. Physical Therapy Plan Next Visit Focus/Plan Next Note Type Treatment Note Next Visit Plan Recumbent bike, progress quad strength, consider mini squats for HEP.
--- NOTE | 2022-05-17 13:45 | PT.OTN ---
Current Diagnoses Presence of artificial knee joint, bilateral (05/17/22) Physical Therapy Treatment Note PT-OP-A Visit Information Start: 04/27/22 07:26 Freq: Status: Active Protocol: Document 05/17/22 13:04 NBM (Rec: 05/17/22 13:49 [facility] [id number]) Out-Patient Physical Therapy Visit Information Visit Information Visit Type Treatment Note Visit Start Time 13:04 Visit Stop Time 13:45 Total Visit Minutes 41 Visit Number 4 Number of TRANSPORTER RADIOLOGY Visits 1 PT-OP-B Current Condition Start: 04/27/22 07:26 Freq: Status: Active Protocol: Document 04/27/22 09:45 AMB (Rec: 04/28/22 16:00 AMB [id number]) Current Condition History of Current Condition Onset Date 04/19/22 Current Complaints L TKA History of Current Condition Nate had L TKA on 04/19. He recently had R TKA revision. 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 He lives on [facility] ([place]). 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 Personal Factors Other Personal Factors That May Effect Blind, back pain Therapy/Recovery PT-OP-C Subjective Start: 04/27/22 07:26 Freq: Status: Active Protocol: Document 05/17/22 13:04 NBM (Rec: 05/17/22 13:49 [facility] [id number]) OP-PT Subjective Patient Comments Patient Comments Pt reports his body hanger fixed his L IT band and L quad since last visit and has ideas in mind for today's session. PT-OP-G Mobility & Gait Start: 04/27/22 07:26 Freq: Status: Active Protocol: Document 04/27/22 09:45 AMB (Rec: 04/28/22 15:53 AMB [id number]) OP Gait Assessment Comments Gait Comments Pt ambulates with antalgic gait, short step length. Crutch due to blindness. PT-OP-J Posture/Palpation/Skin Start: 04/27/22 07:26 Freq: Status: Active Protocol: Document 04/27/22 09:45 AMB (Rec: 04/27/22 11:19 AMB [id number]) Skin Assessment Circumference Measurement 2 Location L knee mid patella Measurement (Centimeters) 42 1 Location R knee mid patella Measurement (Centimeters) 38 PT-OP-K Range of Motion Start: 04/27/22 07:26 Freq: Status: Active Protocol: Document 04/27/22 09:45 AMB (Rec: 04/28/22 15:53 AMB [id number]) Knee Goniometric Range of Motion Knee Right Flexion Active (degrees) 155 Left Flexion Active (degrees) 81 Comments missing 11 degrees from neutral extension PT-OP-M Strength Start: 04/27/22 07:26 Freq: Status: Active Protocol: Document 04/27/22 09:45 AMB (Rec: 04/28/22 15:53 AMB [id number]) Knee Strength Knee Manual Muscle Testing Left Flexion (S2) 4 Good Extension (L3) 3 Fair PT-OP-Q Treatments Start: 04/27/22 07:26 Freq: Status: Active Protocol: Document 05/17/22 13:04 NBM (Rec: 05/17/22 13:49 NBM [id number]) Cardio Equipment Recumbent Stepper (Sci-Fit) Duration (Minutes) 10 Resistance 4.0 Seat Position 12 Other vc to push through heel; incr. resist./time per pt request- tolerated well Recumbent Bicycle Other pt declined Gym Equipment Shuttle Recovery Unilateral Squats Details LLE 37#>25# -pt wanted to try 37# but agreed too challenging Resistance DL 37# x 5, LLE 25# x 10, DL 50# x 6 Therapeutic Exercises Standing Exercises mini squat Reps/Minutes 15 Comments at railing Manual Therapy Treatment Soft Tissue Mobilization edema massage Body Location L Knee Comments with passive flexion and extension PT-OP-T Assessment and Plan Start: 04/27/22 07:26 Freq: Status: Active Protocol: Document 05/17/22 13:04 NBM (Rec: 05/17/22 13:49 NBM [id number]) Physical Therapy Assessment Goals Three Impairment Strength Short Term Goal (STG) Nate will move from sit to stand with even weightbearing to show improved knee strength . 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 LTG Duration 10 weeks Two Impairment Gait Short Term Goal (STG) Nate will ambulate with AD over smooth surfaces for 5 minutes without antalgic gait. STG Duration 4 weeks Nursing Home Goal (LTG) Nate will ambulate without AD over uneven terrain for 6 minutes without loss of balance or antalgic gait. LTG Duration 10 weeks One Impairment ROM Short Term Goal (STG) Nate will improve his knee flexion range to 110 degrees. STG Duration 4 weeks Nursing Home Goal (LTG) Nate will improve his knee range to neutral extension. LTG Duration 10 weeks Assessment Summary Assessment Pt demonstrates improved LLE activity tolerance w/ increased duration and resistance on Recumbent Stepper from 7 min at 1.5 to 10 min at 4.0 and increased reps of mini squats at bar from 10 to 15 this session. Decreased anteriolateral swelling to L knee observed post-manual therapy. Ice declined. Pt will benefit from continued skilled therapeutic intervention. Physical Therapy Plan Next Visit Focus/Plan Next Note Type Treatment Note Next Visit Plan Offer recumbent bike to increase ROM. POC: Recumbent bike, progress quad strength, consider mini squats for HEP.
--- NOTE | 2022-05-19 16:30 | PT.OTN ---
Current Diagnoses Presence of artificial knee joint, bilateral (05/19/22) Physical Therapy Treatment Note PT-OP-A Visit Information Start: 04/27/22 07:26 Freq: Status: Active Protocol: Document 05/19/22 15:16 SAK (Rec: 05/19/22 16:29 SAK [id number]) Out-Patient Physical Therapy Visit Information Visit Information Visit Type Treatment Note Visit Note 30 days post-op left TKA Visit Start Time 15:16 Visit Stop Time 16:10 Total Visit Minutes 54 Visit Number 5 PT-OP-B Current Condition Start: 04/27/22 07:26 Freq: Status: Active Protocol: Document 04/27/22 09:45 AMB (Rec: 04/28/22 16:00 AMB [id number]) Current Condition History of Current Condition Onset Date 04/19/22 Current Complaints L TKA History of Current Condition Nate had L TKA on 04/19. He recently had R TKA revision. 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 He lives on [facility] (ferry to attend PT). 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 Personal Factors Other Personal Factors That May Effect Blind, back pain Therapy/Recovery PT-OP-C Subjective Start: 04/27/22 07:26 Freq: Status: Active Protocol: Document 05/19/22 15:16 SAK (Rec: 05/19/22 16:29 SAK [id number]) OP-PT Subjective Patient Comments Patient Comments Has a walking route that he states is comparable to walking 7 stories. Wants to measure his knee, use shuttle leg press. Pain intense after treatment last session for a day but has calmed down. Pain currently 2-3/10. At 2:30 took Hydrocodone and Acetaminophen PT-OP-G Mobility & Gait Start: 04/27/22 07:26 Freq: Status: Active Protocol: Document 04/27/22 09:45 AMB (Rec: 04/28/22 15:53 AMB [id number]) OP Gait Assessment Comments Gait Comments Pt ambulates with antalgic gait, short step length. Crutch due to blindness. PT-OP-J Posture/Palpation/Skin Start: 04/27/22 07:26 Freq: Status: Active Protocol: Document 04/27/22 09:45 AMB (Rec: 04/27/22 11:19 AMB [id number]) Skin Assessment Circumference Measurement 2 Location L knee mid patella Measurement (Centimeters) 42 1 Location R knee mid patella Measurement (Centimeters) 38 PT-OP-K Range of Motion Start: 04/27/22 07:26 Freq: Status: Active Protocol: Document 04/27/22 09:45 AMB (Rec: 04/28/22 15:53 AMB [id number]) Knee Goniometric Range of Motion Knee Right Flexion Active (degrees) 155 Left Flexion Active (degrees) 81 Comments missing 11 degrees from neutral extension PT-OP-M Strength Start: 04/27/22 07:26 Freq: Status: Active Protocol: Document 04/27/22 09:45 AMB (Rec: 04/28/22 15:53 AMB [id number]) Knee Strength Knee Manual Muscle Testing Left Flexion (S2) 4 Good Extension (L3) 3 Fair PT-OP-Q Treatments Start: 04/27/22 07:26 Freq: Status: Active Protocol: Document 05/19/22 15:16 SAK (Rec: 05/19/22 16:29 SAK [id number]) Cardio Equipment Recumbent Stepper (Sci-Fit) Duration (Minutes) 10 Resistance 4.0 Seat Position 12 Other vc to push through heel; incr. resist./time per pt request- tolerated well Gym Equipment Shuttle Recovery Bilateral Squats Resistance 50 Shuttle Recovery Platform Stable Reps/Time 20x Unilateral Squats Details right LE 37# , LLE 25#x20-pt wanted to try 37# but agreed too challenging Resistance DL 37# x 5, LLE 25# x 10, DL 50# x 6 Therapeutic Exercises Supine Exercises quad set Side left Reps/Minutes 10 Comments verbal and tactile cues terminal knee extension Side left Reps/Minutes 10 Standing Exercises tandem stand Reps/Minutes 1' x 2 Comments parallel bars SLS Reps/Minutes 2x20 Comments parallel bars Manual Therapy Treatment Soft Tissue Mobilization scar massage Mobilization Type Myofascial Release,Strumming Intensity/Depth Moderate Joint Mobilizations patella Joint patellofemoral Direction med/lat, inf/sup Grade II Body Position Supine Reps/Duration 3 min Taping left knee Treatment Focus edema reduction Type of Tape kinesiotape Skin Inspection intact Comments 2 fan strips with bases superior thigh, crossing above scar, extending to sides of scar to inf aspect of knee Self-Care/Home Management Treatment Education Patient Education Home Exercise Program Other Education balance ex: SLS, tandem stand at counter, soft object under knee for tactile feedback quad set to achieve full extension PT-OP-T Assessment and Plan Start: 04/27/22 07:26 Freq: Status: Active Protocol: Document 05/19/22 15:16 [facility] (Rec: 05/19/22 16:29 [facility] [id number]) Physical Therapy Assessment Goals Three Impairment Strength Short Term Goal (STG) Nate will move from sit to stand with even weightbearing to show improved knee strength . 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 LTG Duration 10 weeks Two Impairment Gait Short Term Goal (STG) Nate will ambulate with AD over smooth surfaces for 5 minutes without antalgic gait. STG Duration 4 weeks [facility] Goal (LTG) Nate will ambulate without AD over uneven terrain for 6 minutes without loss of balance or antalgic gait. LTG Duration 10 weeks One Impairment ROM Short Term Goal (STG) Nate will improve his knee flexion range to 110 degrees. STG Duration 4 weeks [facility] Goal (LTG) Nate will improve his knee range to neutral extension. LTG Duration 10 weeks Assessment Summary Assessment initiated scar massage today. Instructed in SLS and tandem stand for balance retraining. Kinesiotape to left knee for edema reduction due to persistent swelling. AROM 6- 134 left knee today. Physical Therapy Plan Next Visit Focus/Plan Next Note Type Treatment Note Next Visit Plan Continue TKA rehab per POC. ASsess response to kinesiotape .
--- NOTE | 2022-05-24 12:22 | PT.OTN ---
Current Diagnoses Presence of artificial knee joint, bilateral (05/24/22) Physical Therapy Treatment Note PT-OP-A Visit Information Start: 04/27/22 07:26 Freq: Status: Active Protocol: Document 05/24/22 11:16 LRN (Rec: 05/24/22 12:20 LRN [id number]) Out-Patient Physical Therapy Visit Information Visit Information Visit Type Treatment Note Visit Start Time 11:16 Visit Stop Time 12:08 Total Visit Minutes 52 Visit Number 6 PT-OP-B Current Condition Start: 04/27/22 07:26 Freq: Status: Active Protocol: Document 04/27/22 09:45 AMB (Rec: 04/28/22 16:00 AMB [id number]) Current Condition History of Current Condition Onset Date 04/19/22 Current Complaints L TKA History of Current Condition Nate had L TKA on 04/19. He recently had R TKA revision. 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 He lives on [facility] (ferr to attend PT). 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 Personal Factors Other Personal Factors That May Effect Blind, back pain Therapy/Recovery PT-OP-C Subjective Start: 04/27/22 07:26 Freq: Status: Active Protocol: Document 05/24/22 11:16 LRN (Rec: 05/24/22 12:20 LRN [id number]) OP-PT Subjective Patient Comments Patient Comments Pt requests Pin and stretch treatment to improve L knee mobility and states he will talk through the treatment. PT-OP-G Mobility & Gait Start: 04/27/22 07:26 Freq: Status: Active Protocol: Document 04/27/22 09:45 AMB (Rec: 04/28/22 15:53 AMB [id number]) OP Gait Assessment Comments Gait Comments Pt ambulates with antalgic gait, short step length. Crutch due to blindness. PT-OP-J Posture/Palpation/Skin Start: 04/27/22 07:26 Freq: Status: Active Protocol: Document 04/27/22 09:45 AMB (Rec: 04/27/22 11:19 AMB [id number]) Skin Assessment Circumference Measurement 2 Location L knee mid patella Measurement (Centimeters) 42 1 Location R knee mid patella Measurement (Centimeters) 38 PT-OP-K Range of Motion Start: 04/27/22 07:26 Freq: Status: Active Protocol: Document 04/27/22 09:45 AMB (Rec: 04/28/22 15:53 AMB [id number]) Knee Goniometric Range of Motion Knee Right Flexion Active (degrees) 155 Left Flexion Active (degrees) 81 Comments missing 11 degrees from neutral extension PT-OP-M Strength Start: 04/27/22 07:26 Freq: Status: Active Protocol: Document 04/27/22 09:45 AMB (Rec: 04/28/22 15:53 AMB [id number]) Knee Strength Knee Manual Muscle Testing Left Flexion (S2) 4 Good Extension (L3) 3 Fair PT-OP-Q Treatments Start: 04/27/22 07:26 Freq: Status: Active Protocol: Document 05/24/22 11:16 LRN (Rec: 05/24/22 12:20 LRN [id number]) Cardio Equipment Recumbent Elliptical (BiodStayzilla) Duration (Minutes) 2 Resistance 8 Seat Position 10 Recumbent Stepper (Sci-Fit) Duration (Minutes) 8 Resistance 4.0 Seat Position 12 Other vc to push through heel; incr. resist./time per pt request- tolerated well Gym Equipment Shuttle Recovery Bilateral Squats Shuttle Recovery Platform Stable Reps/Time DL 37# x 15, LLE 25# x 10, DL 50# x 10 Unilateral Squats Details right LE 37# , LLE 25#x20-pt wanted to try 37# but agreed too challenging Manual Therapy Treatment Soft Tissue Mobilization L knee/Lower leg Body Location L posterior knee/gastroc Mobilization Type Myofascial Release,Other Intensity/Depth Superficial to moderate Body Position Prone Comments STM: Pin & Stretch PT-OP-T Assessment and Plan Start: 04/27/22 07:26 Freq: Status: Active Protocol: Document 05/24/22 11:16 LRN (Rec: 05/24/22 12:20 LRN [id number]) Physical Therapy Assessment Goals Three Impairment Strength Short Term Goal (STG) Nate will move from sit to stand with even weightbearing to show improved knee strength . 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 LTG Duration 10 weeks Two Impairment Gait Short Term Goal (STG) Nate will ambulate with AD over smooth surfaces for 5 minutes without antalgic gait. STG Duration 4 weeks College Instructor Goal (LTG) Nate will ambulate without AD over uneven terrain for 6 minutes without loss of balance or antalgic gait. LTG Duration 10 weeks One Impairment ROM Short Term Goal (STG) Nate will improve his knee flexion range to 110 degrees. STG Duration 4 weeks Penitentiary Goal (LTG) Nate will improve his knee range to neutral extension. LTG Duration 10 weeks Assessment Summary Assessment Pt felt K-tape was helpful for edema. His skin demonstrated a petechial type rash; therefore held use of K-tape. Pt denied discomfort or itching. Pt may be too low on Shuttle for R leg press due to hips lifting into trunk flexion to overcome band tension on the machine. Pt was open to engaging trunk extensors before single leg pressing on L side. Physical Therapy Plan Frequency and Duration Frequency of Treatment 2x/Week Duration of Treatment 10 weeks Plan of Care Start Date 04/27/22 Plan of Care End Date 07/06/22 Next Visit Focus/Plan Next Note Type Treatment Note Next Visit Plan Continue TKA rehab per POC. Assess progress towards goals. Assess skin for rash.
--- NOTE | 2022-05-27 15:48 | PT.OTN ---
Current Diagnoses Presence of artificial knee joint, bilateral (05/27/22) Physical Therapy Treatment Note PT-OP-A Visit Information Start: 04/27/22 07:26 Freq: Status: Active Protocol: Document 05/27/22 13:46 AMB (Rec: 05/27/22 14:32 AMB [id number]) Out-Patient Physical Therapy Visit Information Visit Information Visit Type Treatment Note Visit Start Time 13:45 Visit Stop Time 14:30 Total Visit Minutes 45 Visit Number 7 PT-OP-B Current Condition Start: 04/27/22 07:26 Freq: Status: Active Protocol: Document 04/27/22 09:45 AMB (Rec: 04/28/22 16:00 AMB [id number]) Current Condition History of Current Condition Onset Date 04/19/22 Current Complaints L TKA History of Current Condition Nate had L TKA on 04/19. He recently had R TKA revision. 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 He lives on [facility] (ferr to attend PT). 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 Personal Factors Other Personal Factors That May Effect Blind, back pain Therapy/Recovery PT-OP-C Subjective Start: 04/27/22 07:26 Freq: Status: Active Protocol: Document 05/27/22 13:46 AMB (Rec: 05/27/22 14:32 AMB [id number]) OP-PT Subjective Patient Comments Patient Comments Pt has been doing more walking - 3 driveway lengths PT-OP-G Mobility & Gait Start: 04/27/22 07:26 Freq: Status: Active Protocol: Document 04/27/22 09:45 AMB (Rec: 04/28/22 15:53 AMB [id number]) OP Gait Assessment Comments Gait Comments Pt ambulates with antalgic gait, short step length. Crutch due to blindness. PT-OP-J Posture/Palpation/Skin Start: 04/27/22 07:26 Freq: Status: Active Protocol: Document 04/27/22 09:45 AMB (Rec: 04/27/22 11:19 AMB [id number]) Skin Assessment Circumference Measurement 2 Location L knee mid patella Measurement (Centimeters) 42 1 Location R knee mid patella Measurement (Centimeters) 38 PT-OP-K Range of Motion Start: 04/27/22 07:26 Freq: Status: Active Protocol: Document 04/27/22 09:45 AMB (Rec: 04/28/22 15:53 AMB [id number]) Knee Goniometric Range of Motion Knee Right Flexion Active (degrees) 155 Left Flexion Active (degrees) 81 Comments missing 11 degrees from neutral extension PT-OP-M Strength Start: 04/27/22 07:26 Freq: Status: Active Protocol: Document 04/27/22 09:45 AMB (Rec: 04/28/22 15:53 AMB [id number]) Knee Strength Knee Manual Muscle Testing Left Flexion (S2) 4 Good Extension (L3) 3 Fair PT-OP-Q Treatments Start: 04/27/22 07:26 Freq: Status: Active Protocol: Document 05/27/22 13:46 AMB (Rec: 05/27/22 14:32 AMB [id number]) Cardio Equipment Recumbent Stepper (Sci-Fit) Duration (Minutes) 8 Resistance 6 Seat Position 12 Other vc to push through heel; incr. resist./time per pt request- tolerated well Gym Equipment Shuttle Recovery Bilateral Squats Shuttle Recovery Platform Stable Reps/Time DL 50# x 20 Unilateral Squats Details right LE 37#x15 , LLE 25#x15 Manual Therapy Treatment Soft Tissue Mobilization L knee/Lower leg Body Location L posterior knee/gastroc Mobilization Type Myofascial Release,Other Intensity/Depth Superficial to moderate Body Position Prone Comments STM: Pin & Stretch Taping left knee Treatment Focus edema reduction Type of Tape kinesiotape Skin Inspection intact Comments 2 fan strips with bases superior thigh, crossing above scar, extending to sides of scar to inf aspect of knee PT-OP-T Assessment and Plan Start: 04/27/22 07:26 Freq: Status: Active Protocol: Document 05/27/22 13:46 AMB (Rec: 05/27/22 14:32 AMB [id number]) Physical Therapy Assessment Goals Three Impairment Strength Short Term Goal (STG) Nate will move from sit to stand with even weightbearing to show improved knee strength . 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 LTG Duration 10 weeks Two Impairment Gait Short Term Goal (STG) Nate will ambulate with AD over smooth surfaces for 5 minutes without antalgic gait. STG Duration 4 weeks Nursing Home Goal (LTG) Nate will ambulate without AD over uneven terrain for 6 minutes without loss of balance or antalgic gait. LTG Duration 10 weeks One Impairment ROM Short Term Goal (STG) Nate will improve his knee flexion range to 110 degrees. STG Duration 4 weeks Loaders Goal (LTG) Nate will improve his knee range to neutral extension. LTG Duration 10 weeks Assessment Summary Assessment Nate tolerated increased resistance to glute/quad strengthening today. Continues to have mild swelling and calf tenderness. Did tape as no redness today, but did encourage pt to remove tape by Tuesday. Physical Therapy Plan Next Visit Focus/Plan Next Note Type Treatment Note Next Visit Plan Continue TKA rehab per POC. Assess progress towards goals. Assess skin for rash.
--- NOTE | 2022-05-31 14:30 | PT.OTN ---
Current Diagnoses Presence of artificial knee joint, bilateral (06/03/22) Physical Therapy Treatment Note PT-OP-A Visit Information Start: 04/27/22 07:26 Freq: Status: Active Protocol: Document 06/07/22 12:45 NBM (Rec: 05/31/22 12:57 NB [id number]) Out-Patient Physical Therapy Visit Information Visit Information Visit Type Treatment Note Visit Start Time 13:45 Visit Stop Time 14:30 Total Visit Minutes 45 Visit Number 8 Number of CONTROL ENGINEER Visits 1 PT-OP-B Current Condition Start: 04/27/22 07:26 Freq: Status: Active Protocol: Document 04/27/22 09:45 AMB (Rec: 04/28/22 16:00 AMB [id number]) Current Condition History of Current Condition Onset Date 04/19/22 Current Complaints L TKA History of Current Condition Nate had L TKA on 04/19. He recently had R TKA revision. 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 He lives on [facility] (ferry to attend PT). 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 Personal Factors Other Personal Factors That May Effect Blind, back pain Therapy/Recovery PT-OP-C Subjective Start: 04/27/22 07:26 Freq: Status: Active Protocol: Document 06/07/22 12:45 NBM (Rec: 05/31/22 12:57 NBM [id number]) OP-PT Subjective Patient Comments Patient Comments Nate reports the KT tape felt like it was pulling on a nerve and he had to remove it. He has pain down his L leg since. PT-OP-G Mobility & Gait Start: 04/27/22 07:26 Freq: Status: Active Protocol: Document 04/27/22 09:45 AMB (Rec: 04/28/22 15:53 AMB [id number]) OP Gait Assessment Comments Gait Comments Pt ambulates with antalgic gait, short step length. Crutch due to blindness. PT-OP-J Posture/Palpation/Skin Start: 04/27/22 07:26 Freq: Status: Active Protocol: Document 04/27/22 09:45 AMB (Rec: 04/27/22 11:19 AMB [id number]) Skin Assessment Circumference Measurement 2 Location L knee mid patella Measurement (Centimeters) 42 1 Location R knee mid patella Measurement (Centimeters) 38 PT-OP-K Range of Motion Start: 04/27/22 07:26 Freq: Status: Active Protocol: Document 06/07/22 12:45 NBM (Rec: 06/07/22 13:35 NBM [id number]) Knee Goniometric Range of Motion Knee Left Patient Position Supine Flexion Active (degrees) 131 Extension Active (degrees) 0 Comments Goal of 110 deg knee flexion met. PT-OP-M Strength Start: 04/27/22 07:26 Freq: Status: Active Protocol: Document 04/27/22 09:45 AMB (Rec: 04/28/22 15:53 AMB [id number]) Knee Strength Knee Manual Muscle Testing Left Flexion (S2) 4 Good Extension (L3) 3 Fair PT-OP-Q Treatments Start: 04/27/22 07:26 Freq: Status: Active Protocol: Document 06/07/22 12:45 NBM (Rec: 05/31/22 12:57 NBM [id number]) Cardio Equipment Recumbent Stepper (Sci-Fit) Duration (Minutes) 8 Resistance 6 Seat Position 12 Other vc to push through heel; incr. resist./time per pt request- tolerated well Gym Equipment Shuttle Recovery Bilateral Squats Shuttle Recovery Platform Stable Reps/Time DL 50# x 30, 20x75# Unilateral Squats Details right LE 37#x20, 50#x5 , left LE 25#x15, 37#x10 Reps/Time cue for R knee varus on RLE Therapeutic Exercises Standing Exercises Heel lifts Side bilateral Reps/Minutes x10 ea Comments cue for slow eccentric mini squat Standing Exercise Name mini squat Reps/Minutes 15 Comments at railing Manual Therapy Treatment Soft Tissue Mobilization L quad Body Location L quads Mobilization Type Rolling,Sustained Pressure Intensity/Depth Moderate Body Position Hooklying edema massage Body Location L Knee Comments with passive flexion and extension Joint Mobilizations patella Joint patellofemoral Direction med/lat, inf/sup Grade II Body Position Supine Reps/Duration 2 min PT-OP-T Assessment and Plan Start: 04/27/22 07:26 Freq: Status: Active Protocol: Document 06/07/22 12:45 NBM (Rec: 05/31/22 12:57 NBM [id number]) Physical Therapy Assessment Goals Three Impairment Strength Short Term Goal (STG) Nate will move from sit to stand with even weightbearing to show improved knee strength . 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 LTG Duration 10 weeks Two Impairment Gait Short Term Goal (STG) Nate will ambulate with AD over smooth surfaces for 5 minutes without antalgic gait. STG Duration 4 weeks Construction Field Engineer Goal (LTG) Nate will ambulate without AD over uneven terrain for 6 minutes without loss of balance or antalgic gait. LTG Duration 10 weeks One Impairment ROM Short Term Goal (STG) Nate will improve his knee flexion range to 110 degrees. 05/31/22: MET: Pt has AROM knee flexion 131 degrees. STG Duration 4 weeks Group Home Goal (LTG) Nate will improve his knee range to neutral extension. LTG Duration 10 weeks Assessment Summary Assessment Nate presents today w/ increase LLE pain but continues to progress towards his strength and ROM goals. Treatment focus today on LE strengthening and manual therapy. He has AROM knee flexion 131 degrees today. Pt' s L knee shows visibly reduced swelling after manual therapy and pt confirms there is less swelling in the L knee. Physical Therapy Plan Next Visit Focus/Plan Next Note Type Treatment Note Next Visit Plan Continue TKA rehab per POC. Assess progress towards goals.
--- NOTE | 2022-06-03 15:44 | PT.OTN ---
Current Diagnoses Presence of artificial knee joint, bilateral (06/03/22) Physical Therapy Treatment Note PT-OP-A Visit Information Start: 04/27/22 07:26 Freq: Status: Active Protocol: Document 06/03/22 14:08 AMB (Rec: 06/03/22 14:29 AMB [id number]) Out-Patient Physical Therapy Visit Information Visit Information Visit Type Progress Note Visit Start Time 13:45 Visit Stop Time 14:30 Total Visit Minutes 40 Visit Number 9 PT-OP-B Current Condition Start: 04/27/22 07:26 Freq: Status: Active Protocol: Document 04/27/22 09:45 AMB (Rec: 04/28/22 16:00 AMB [id number]) Current Condition History of Current Condition Onset Date 04/19/22 Current Complaints L TKA History of Current Condition Nate had L TKA on 04/19. He recently had R TKA revision. 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 He lives on [facility] ([place] to attend PT). 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 Personal Factors Other Personal Factors That May Effect Blind, back pain Therapy/Recovery PT-OP-C Subjective Start: 04/27/22 07:26 Freq: Status: Active Protocol: Document 06/03/22 14:08 AMB (Rec: 06/03/22 14:29 AMB [id number]) OP-PT Subjective Patient Comments Patient Comments Pt did not tolerate KT tape well, increased pain. PT-OP-G Mobility & Gait Start: 04/27/22 07:26 Freq: Status: Active Protocol: Document 04/27/22 09:45 AMB (Rec: 04/28/22 15:53 AMB [id number]) OP Gait Assessment Comments Gait Comments Pt ambulates with antalgic gait, short step length. Crutch due to blindness. PT-OP-J Posture/Palpation/Skin Start: 04/27/22 07:26 Freq: Status: Active Protocol: Document 04/27/22 09:45 AMB (Rec: 04/27/22 11:19 AMB [id number]) Skin Assessment Circumference Measurement 2 Location L knee mid patella Measurement (Centimeters) 42 1 Location R knee mid patella Measurement (Centimeters) 38 PT-OP-K Range of Motion Start: 04/27/22 07:26 Freq: Status: Active Protocol: Document 04/27/22 09:45 AMB (Rec: 04/28/22 15:53 AMB [id number]) Knee Goniometric Range of Motion Knee Right Flexion Active (degrees) 155 Left Flexion Active (degrees) 81 Comments missing 11 degrees from neutral extension PT-OP-M Strength Start: 04/27/22 07:26 Freq: Status: Active Protocol: Document 04/27/22 09:45 AMB (Rec: 04/28/22 15:53 AMB [id number]) Knee Strength Knee Manual Muscle Testing Left Flexion (S2) 4 Good Extension (L3) 3 Fair PT-OP-Q Treatments Start: 04/27/22 07:26 Freq: Status: Active Protocol: Document 06/03/22 14:08 AMB (Rec: 06/03/22 14:29 AMB [id number]) Cardio Equipment Recumbent Stepper (Sci-Fit) Duration (Minutes) 12 Resistance 7 Seat Position 12 Other vc to push through heel; incr. resist./time per pt request- tolerated well Gym Equipment Shuttle Recovery Bilateral Squats Shuttle Recovery Platform Stable Reps/Time DL 75# x 15, 50#x15 Unilateral Squats Details right LE 37#x15 , LLE 25#x15 Manual Therapy Treatment Soft Tissue Mobilization L knee/Lower leg Body Location L posterior knee/gastroc Mobilization Type Myofascial Release,Other Intensity/Depth Superficial to moderate Body Position Prone Comments STM: Pin & Stretch Other Other Manual Treatments MET to correct L innominate anterior rotation PT-OP-T Assessment and Plan Start: 04/27/22 07:26 Freq: Status: Active Protocol: Document 06/03/22 14:08 AMB (Rec: 06/03/22 14:29 AMB [id number]) Physical Therapy Assessment Goals Three Impairment Strength Short Term Goal (STG) Nate will move from sit to stand with even weightbearing to show improved knee strength . 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 LTG Duration 10 weeks Two Impairment Gait Short Term Goal (STG) Nate will ambulate with AD over smooth surfaces for 5 minutes without antalgic gait. STG Duration 4 weeks Snf Goal (LTG) Nate will ambulate without AD over uneven terrain for 6 minutes without loss of balance or antalgic gait. LTG Duration 10 weeks One Impairment ROM Short Term Goal (STG) Nate will improve his knee flexion range to 110 degrees. STG Duration MET--128 Kinesiologist Goal (LTG) Nate will improve his knee range to neutral extension. missing 5 degrees. LTG Duration 10 weeks Assessment Summary Assessment Nate is making good strides towards his goals, flexion is good. Needs to progress extension and continue to progress quad strengthening. Physical Therapy Plan Frequency and Duration Frequency of Treatment 2x/Week Duration of Treatment 10 weeks Plan of Care Start Date 04/27/22 Plan of Care End Date 07/06/22 Next Visit Focus/Plan Next Note Type Treatment Note Next Visit Plan Focus on terminal knee extension
--- NOTE | 2022-06-07 17:38 | PT.OTN ---
Current Diagnoses Presence of artificial knee joint, bilateral (06/07/22) Physical Therapy Treatment Note PT-OP-A Visit Information Start: 04/27/22 07:26 Freq: Status: Active Protocol: Document 06/07/22 13:39 NBM (Rec: 06/07/22 17:26 NBM [id number]) Out-Patient Physical Therapy Visit Information Visit Information Visit Type Treatment Note Visit Start Time 13:55 Visit Stop Time 14:33 Total Visit Minutes 48 Visit Number 10 Number of COMMERCIAL PAINTER Visits 1 PT-OP-B Current Condition Start: 04/27/22 07:26 Freq: Status: Active Protocol: Document 04/27/22 09:45 AMB (Rec: 04/28/22 16:00 AMB [id number]) Current Condition History of Current Condition Onset Date 04/19/22 Current Complaints L TKA History of Current Condition Nate had L TKA on 04/19. He recently had R TKA revision. 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 He lives on [facility] ([place] to attend PT). 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 Personal Factors Other Personal Factors That May Effect Blind, back pain Therapy/Recovery PT-OP-C Subjective Start: 04/27/22 07:26 Freq: Status: Active Protocol: Document 06/07/22 13:39 NBM (Rec: 06/07/22 17:26 NBM [id number]) OP-PT Subjective Patient Comments Patient Comments Pt PT-OP-G Mobility & Gait Start: 04/27/22 07:26 Freq: Status: Active Protocol: Document 04/27/22 09:45 AMB (Rec: 04/28/22 15:53 AMB [id number]) OP Gait Assessment Comments Gait Comments Pt ambulates with antalgic gait, short step length. Crutch due to blindness. PT-OP-J Posture/Palpation/Skin Start: 04/27/22 07:26 Freq: Status: Active Protocol: Document 04/27/22 09:45 AMB (Rec: 04/27/22 11:19 AMB [id number]) Skin Assessment Circumference Measurement 2 Location L knee mid patella Measurement (Centimeters) 42 1 Location R knee mid patella Measurement (Centimeters) 38 PT-OP-K Range of Motion Start: 04/27/22 07:26 Freq: Status: Active Protocol: Document 05/31/22 13:45 NBM (Rec: 06/07/22 13:35 NBM [id number]) Knee Goniometric Range of Motion Knee Left Patient Position Supine Flexion Active (degrees) 131 Comments Goal of 110 deg knee flexion met. PT-OP-M Strength Start: 04/27/22 07:26 Freq: Status: Active Protocol: Document 04/27/22 09:45 AMB (Rec: 04/28/22 15:53 AMB [id number]) Knee Strength Knee Manual Muscle Testing Left Flexion (S2) 4 Good Extension (L3) 3 Fair PT-OP-Q Treatments Start: 04/27/22 07:26 Freq: Status: Active Protocol: Document 06/07/22 13:39 NBM (Rec: 06/07/22 17:26 NBM [id number]) Cardio Equipment Recumbent Stepper (Sci-Fit) Duration (Minutes) 12 Resistance 7 Seat Position 12 Other vc to push through heel; incr. resist./time per pt request- tolerated well Gym Equipment Shuttle Recovery Bilateral Squats Shuttle Recovery Platform Stable Reps/Time DL 75# x 15, 50#x15 Unilateral Squats Details right LE 37#x15 , LLE 25#x15 Therapeutic Exercises Standing Exercises TKE Standing Exercise Name 3-way - added to HEP Side left Resistance Lvl 2 Tb Equipment Used // bars for SPORTS MANAGER prn Reps/Minutes 2 x 15 ea Comments initial cues for L knee varus, full TKE mini squat Standing Exercise Name mini squat Equipment Used // bars Reps/Minutes 15 Neuro Re-Education Treatment Balance Activities Tandem Details tandem walking Surface firm Equipment // bars Reps/Duration 4 x 10 ft Comments cues for R foot ER. Self-Care/Home Management Treatment Education Patient Education Home Exercise Program Other Education Added 3-way TKE w/Tb to HEP - Lvl 2 Tb and anchor loop given to pt - no HO given. HEP Review: Pt demonstrated gait activities up/down driveway (125ft, 25 ft elevation) - cue for L knee varus w/ mini lunge PT-OP-T Assessment and Plan Start: 04/27/22 07:26 Freq: Status: Active Protocol: Document 06/07/22 13:39 NBM (Rec: 06/07/22 17:26 NBM [id number]) Physical Therapy Assessment Goals Three Impairment Strength Short Term Goal (STG) Nate will move from sit to stand with even weightbearing to show improved knee strength . 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 LTG Duration 10 weeks Two Impairment Gait Short Term Goal (STG) Nate will ambulate with AD over smooth surfaces for 5 minutes without antalgic gait. STG Duration 4 weeks Long-Term Goal (LTG) Nate will ambulate without AD over uneven terrain for 6 minutes without loss of balance or antalgic gait. LTG Duration 10 weeks One Impairment ROM Short Term Goal (STG) Nate will improve his knee flexion range to 110 degrees. STG Duration MET--128 Milk Wagon Driver Goal (LTG) Nate will improve his knee range to neutral extension. missing 5 degrees. LTG Duration 10 weeks Assessment Summary Assessment Treatment focus today on improving L knee extension. Pt tolerates recumbent stepper w / seat further back and resistance increased from 6 to 7. Pt self-corrects L knee varus w/ flexion consistently after initial cueing when starting new exercise. 3-way standing TKE w/ theraband added to HEP - Lvl 2 Tb and anchor loop given. Physical Therapy Plan Next Visit Focus/Plan Next Note Type Treatment Note Next Visit Plan Reassess 3-way TKE w/ Tb. Consider prone glute TKE. POC: Focus on terminal knee extension
--- NOTE | 2022-06-10 15:37 | PT.OTN ---
Current Diagnoses Presence of artificial knee joint, bilateral (06/10/22) Physical Therapy Treatment Note PT-OP-A Visit Information Start: 04/27/22 07:26 Freq: Status: Active Protocol: Document 06/10/22 14:30 AMB (Rec: 06/10/22 15:06 AMB [id number]) Out-Patient Physical Therapy Visit Information Visit Information Visit Type Treatment Note Visit Start Time 14:30 Visit Stop Time 15:15 Total Visit Minutes 45 Visit Number 11 PT-OP-B Current Condition Start: 04/27/22 07:26 Freq: Status: Active Protocol: Document 04/27/22 09:45 AMB (Rec: 04/28/22 16:00 AMB [id number]) Current Condition History of Current Condition Onset Date 04/19/22 Current Complaints L TKA History of Current Condition Nate had L TKA on 04/19. He recently had R TKA revision. 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 He lives on [facility] ([place] to attend PT). 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 Personal Factors Other Personal Factors That May Effect Blind, back pain Therapy/Recovery PT-OP-C Subjective Start: 04/27/22 07:26 Freq: Status: Active Protocol: Document 06/10/22 14:30 AMB (Rec: 06/10/22 15:06 AMB [id number]) OP-PT Subjective Patient Comments Patient Comments Mckay splints after lst visit. 95% SpO2 147 HR. PT-OP-G Mobility & Gait Start: 04/27/22 07:26 Freq: Status: Active Protocol: Document 04/27/22 09:45 AMB (Rec: 04/28/22 15:53 AMB [id number]) OP Gait Assessment Comments Gait Comments Pt ambulates with antalgic gait, short step length. Crutch due to blindness. PT-OP-J Posture/Palpation/Skin Start: 04/27/22 07:26 Freq: Status: Active Protocol: Document 04/27/22 09:45 AMB (Rec: 04/27/22 11:19 AMB [id number]) Skin Assessment Circumference Measurement 2 Location L knee mid patella Measurement (Centimeters) 42 1 Location R knee mid patella Measurement (Centimeters) 38 PT-OP-K Range of Motion Start: 04/27/22 07:26 Freq: Status: Active Protocol: Document 05/31/22 13:45 NBM (Rec: 06/07/22 13:35 NBM [id number]) Knee Goniometric Range of Motion Knee Left Patient Position Supine Flexion Active (degrees) 131 Comments Goal of 110 deg knee flexion met. PT-OP-M Strength Start: 04/27/22 07:26 Freq: Status: Active Protocol: Document 04/27/22 09:45 AMB (Rec: 04/28/22 15:53 AMB [id number]) Knee Strength Knee Manual Muscle Testing Left Flexion (S2) 4 Good Extension (L3) 3 Fair PT-OP-Q Treatments Start: 04/27/22 07:26 Freq: Status: Active Protocol: Document 06/10/22 14:30 AMB (Rec: 06/10/22 15:06 AMB [id number]) Cardio Equipment Recumbent Stepper (Sci-Fit) Duration (Minutes) 8 Resistance 7 Seat Position 12 Other vc to push through heel; incr. resist./time per pt request- tolerated well Gym Equipment Shuttle Recovery Bilateral Squats Shuttle Recovery Platform Stable Reps/Time DL 75# x 35, Unilateral Squats Details right LE 37#x15 , LLE 25#x15 Therapeutic Exercises Standing Exercises TKE Standing Exercise Name 2-way - added to HEP Side left Resistance Lvl 2 Tb Equipment Used // bars for INTELLIGENCE CLERK prn Reps/Minutes 6 ea Comments full TKE tandem stand Reps/Minutes 1' x 2 Comments parallel bars mini squat Standing Exercise Name mini squat Equipment Used // bars Reps/Minutes 10 PT-OP-T Assessment and Plan Start: 04/27/22 07:26 Freq: Status: Active Protocol: Document 06/10/22 14:30 AMB (Rec: 06/10/22 15:06 AMB [id number]) Physical Therapy Assessment Goals Three Impairment Strength Short Term Goal (STG) Nate will move from sit to stand with even weightbearing to show improved knee strength . 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 LTG Duration 10 weeks Two Impairment Gait Short Term Goal (STG) Nate will ambulate with AD over smooth surfaces for 5 minutes without antalgic gait. STG Duration 4 weeks Horologist Apprentice Goal (LTG) Nate will ambulate without AD over uneven terrain for 6 minutes without loss of balance or antalgic gait. LTG Duration 10 weeks One Impairment ROM Short Term Goal (STG) Nate will improve his knee flexion range to 110 degrees. STG Duration MET--137 Skilled Nursing Goal (LTG) Nate will improve his knee range to neutral extension. missing 3 degrees LTG Duration 10 weeks Assessment Summary Assessment Pt had increased mckay pain after TKE last visit, so reduced number of repetitions. ROM is improving well as swelling is better managed. Physical Therapy Plan Next Visit Focus/Plan Next Note Type Treatment Note Next Visit Plan POC: Focus on terminal knee extension, continue strengthening as tolerated, further assess balance
--- NOTE | 2022-06-14 15:17 | PT.OTN ---
Current Diagnoses Presence of artificial knee joint, bilateral (06/14/22) Physical Therapy Treatment Note PT-OP-A Visit Information Start: 04/27/22 07:26 Freq: Status: Active Protocol: Document 06/14/22 14:09 NBM (Rec: 06/14/22 15:17 NBM [id number]) Out-Patient Physical Therapy Visit Information Visit Information Visit Type Treatment Note Visit Start Time 15:15 Visit Stop Time 15:55 Total Visit Minutes 40 Visit Number 11 PT-OP-B Current Condition Start: 04/27/22 07:26 Freq: Status: Active Protocol: Document 04/27/22 09:45 AMB (Rec: 04/28/22 16:00 AMB [id number]) Current Condition History of Current Condition Onset Date 04/19/22 Current Complaints L TKA History of Current Condition Nate had L TKA on 04/19. He recently had R TKA revision. 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 He lives on [facility] ([facility] 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 Personal Factors Other Personal Factors That May Effect Blind, back pain Therapy/Recovery PT-OP-C Subjective Start: 04/27/22 07:26 Freq: Status: Active Protocol: Document 06/14/22 14:09 NBM (Rec: 06/14/22 15:17 NBM [id number]) OP-PT Subjective Patient Comments Patient Comments Pt said he had a knife-sharp pain on Tuesday when he got up from bed and his L leg buckled and he fell backwards onto the bed. The day before he was on the floor for 2-3 hrs to work on computer. He took a break from HEP except for 50 clamshells; hip sidelift and big circles 10 ea suraj; and mini bridge w/ heel slides yesterday. He is trying to strengthen his hamstrings. He got a jay horse in his R calf yesterday. Pt wants to focus on endurance. PT-OP-G Mobility & Gait Start: 04/27/22 07:26 Freq: Status: Active Protocol: Document 04/27/22 09:45 AMB (Rec: 04/28/22 15:53 AMB [id number]) OP Gait Assessment Comments Gait Comments Pt ambulates with antalgic gait, short step length. Crutch due to blindness. PT-OP-J Posture/Palpation/Skin Start: 04/27/22 07:26 Freq: Status: Active Protocol: Document 04/27/22 09:45 AMB (Rec: 04/27/22 11:19 AMB [id number]) Skin Assessment Circumference Measurement 2 Location L knee mid patella Measurement (Centimeters) 42 1 Location R knee mid patella Measurement (Centimeters) 38 PT-OP-K Range of Motion Start: 04/27/22 07:26 Freq: Status: Active Protocol: Document 05/31/22 13:45 NBM (Rec: 06/07/22 13:35 NBM [id number]) Knee Goniometric Range of Motion Knee Left Patient Position Supine Flexion Active (degrees) 131 Comments Goal of 110 deg knee flexion met. PT-OP-M Strength Start: 04/27/22 07:26 Freq: Status: Active Protocol: Document 04/27/22 09:45 AMB (Rec: 04/28/22 15:53 AMB [id number]) Knee Strength Knee Manual Muscle Testing Left Flexion (S2) 4 Good Extension (L3) 3 Fair PT-OP-Q Treatments Start: 04/27/22 07:26 Freq: Status: Active Protocol: Document 06/14/22 14:09 NBM (Rec: 06/14/22 15:17 NBM [id number]) Cardio Equipment Recumbent Stepper (Sci-Fit) Duration (Minutes) 8 Resistance 7 Seat Position 12 Other vc to push through heel; incr. resist./time per pt request- tolerated well Gym Equipment Shuttle Recovery Bilateral Squats Details cues for knee varus R>L, w/ light edema massage to L knee Shuttle Recovery Platform Stable Reps/Time DL 5 x 50#, 75# x 45, 100#x5 Unilateral Squats Details not done today Therapeutic Exercises Supine Exercises IT Band Side bilateral Equipment Used w/ strap Reps/Minutes 1 x 60 Comments cueing for form Piriformis Supine Exercise Name modified Figure 4 Side bilateral Reps/Minutes 1 x 45 ea hamstring stretch Side bilateral Equipment Used w/ strap Reps/Minutes 1 x 60 Manual Therapy Treatment Soft Tissue Mobilization L IT Band Body Location L TFL, ITB, L lateral knee Mobilization Type Instrument Assisted Intensity/Depth Deep Body Position Supine Comments cupping w/ focus on decreasing tissue restriction and pain. PT-OP-T Assessment and Plan Start: 04/27/22 07:26 Freq: Status: Active Protocol: Document 06/14/22 14:09 [facility] (Rec: 06/14/22 15:17 [facility] [id number]) Physical Therapy Assessment Goals Three Impairment Strength Short Term Goal (STG) Nate will move from sit to stand with even weightbearing to show improved knee strength . 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 LTG Duration 10 weeks Two Impairment Gait Short Term Goal (STG) Nate will ambulate with AD over smooth surfaces for 5 minutes without antalgic gait. STG Duration 4 weeks Custodial Goal (LTG) Nate will ambulate without AD over uneven terrain for 6 minutes without loss of balance or antalgic gait. LTG Duration 10 weeks One Impairment ROM Short Term Goal (STG) Nate will improve his knee flexion range to 110 degrees. STG Duration MET--137 Wind Energy Engineer Goal (LTG) Nate will improve his knee range to neutral extension. missing 3 degrees LTG Duration 10 weeks Assessment Summary Assessment Pt presents today w/ complaints of recent L knee pain. Pt requires cues for correcting knee varus during supine leg press R>L, and self -awareness improves w/ repetition. Pt also demonstrates improved awareness of appropriate weight/reps for safely improving LE endurance. Pt's gait improved w/ increased weightbearing into LLE and reported pain decreased after manual therapy. Physical Therapy Plan Next Visit Focus/Plan Next Note Type Treatment Note Next Visit Plan POC: Focus on terminal knee extension, continue strengthening as tolerated, further assess balance
--- NOTE | 2022-06-17 16:05 | PT.OTN ---
Current Diagnoses Presence of artificial knee joint, bilateral (06/17/22) Physical Therapy Treatment Note PT-OP-A Visit Information Start: 04/27/22 07:26 Freq: Status: Active Protocol: Document 06/17/22 13:44 AMB (Rec: 06/17/22 14:29 AMB [id number]) Out-Patient Physical Therapy Visit Information Visit Information Visit Type Treatment Note Visit Start Time 13:45 Visit Stop Time 14:30 Total Visit Minutes 45 Visit Number 13 PT-OP-B Current Condition Start: 04/27/22 07:26 Freq: Status: Active Protocol: Document 04/27/22 09:45 AMB (Rec: 04/28/22 16:00 AMB [id number]) Current Condition History of Current Condition Onset Date 04/19/22 Current Complaints L TKA History of Current Condition Nate had L TKA on 04/19. He recently had R TKA revision. 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 He lives on [facility] (ferr to attend PT). 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 Personal Factors Other Personal Factors That May Effect Blind, back pain Therapy/Recovery PT-OP-C Subjective Start: 04/27/22 07:26 Freq: Status: Active Protocol: Document 06/17/22 13:44 AMB (Rec: 06/17/22 14:29 AMB [id number]) OP-PT Subjective Patient Comments Patient Comments No new sharp pains. Feeling like there is more scar tissue PT-OP-G Mobility & Gait Start: 04/27/22 07:26 Freq: Status: Active Protocol: Document 04/27/22 09:45 AMB (Rec: 04/28/22 15:53 AMB [id number]) OP Gait Assessment Comments Gait Comments Pt ambulates with antalgic gait, short step length. Crutch due to blindness. PT-OP-J Posture/Palpation/Skin Start: 04/27/22 07:26 Freq: Status: Active Protocol: Document 04/27/22 09:45 AMB (Rec: 04/27/22 11:19 AMB [id number]) Skin Assessment Circumference Measurement 2 Location L knee mid patella Measurement (Centimeters) 42 1 Location R knee mid patella Measurement (Centimeters) 38 PT-OP-K Range of Motion Start: 04/27/22 07:26 Freq: Status: Active Protocol: Document 05/31/22 13:45 NBM (Rec: 06/07/22 13:35 NBM [id number]) Knee Goniometric Range of Motion Knee Left Patient Position Supine Flexion Active (degrees) 131 Comments Goal of 110 deg knee flexion met. PT-OP-M Strength Start: 04/27/22 07:26 Freq: Status: Active Protocol: Document 04/27/22 09:45 AMB (Rec: 04/28/22 15:53 AMB [id number]) Knee Strength Knee Manual Muscle Testing Left Flexion (S2) 4 Good Extension (L3) 3 Fair PT-OP-Q Treatments Start: 04/27/22 07:26 Freq: Status: Active Protocol: Document 06/17/22 13:44 AMB (Rec: 06/17/22 14:29 AMB [id number]) Cardio Equipment Recumbent Stepper (Sci-Fit) Duration (Minutes) 8 Resistance 7 Seat Position 12 Other vc to push through heel; incr. resist./time per pt request- tolerated well Gym Equipment Shuttle Recovery Bilateral Squats Details cues for foot placement Shuttle Recovery Platform Stable Reps/Time DL 5 x 50#, 75# x 20, 100#x13 Unilateral Squats Details LLE 25#x15 Manual Therapy Treatment Soft Tissue Mobilization L IT Band Body Location L IT band, tib anterior Mobilization Type Strumming Intensity/Depth Superficial Body Position Supine Comments with PROM, joint distraction PT-OP-T Assessment and Plan Start: 04/27/22 07:26 Freq: Status: Active Protocol: Document 06/17/22 13:44 AMB (Rec: 06/17/22 14:29 AMB [id number]) Physical Therapy Assessment Goals Three Impairment Strength Short Term Goal (STG) Nate will move from sit to stand with even weightbearing to show improved knee strength . 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 LTG Duration 10 weeks Two Impairment Gait Short Term Goal (STG) Nate will ambulate with AD over smooth surfaces for 5 minutes without antalgic gait. STG Duration [address] Goal (LTG) Nate will ambulate without AD over uneven terrain for 6 minutes without loss of balance or antalgic gait. LTG Duration 10 weeks One Impairment ROM Short Term Goal (STG) Nate will improve his knee flexion range to 110 degrees. STG Duration MET--137 Penitentiary Goal (LTG) Nate will improve his knee range to neutral extension. missing 3 degrees LTG Duration 10 weeks Assessment Summary Assessment 135 degrees of flexion today. Pt with milding increased swelling today, encouraged in continue scar tissue mobility. Physical Therapy Plan Frequency and Duration Frequency of Treatment 2x/Week Duration of Treatment 10 weeks Plan of Care Start Date 04/27/22 Plan of Care End Date 07/06/22 Therapeutic Interventions Therapeutic Interventions Gait Training,Home Exercise Program,Manual Therapy, Neuromuscular Re-education, Self-Care/Home Management, Therapeutic Activities, Therapeutic Exercises Modalities Cold Pack/Ice Massage,Electric Stimulation Next Visit Focus/Plan Next Note Type Treatment Note Next Visit Plan POC: Focus on terminal knee extension, continue strengthening as tolerated, further assess balance
--- NOTE | 2022-07-05 16:01 | PT.OTN ---
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 He recently had R TKA revision. 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 He lives on [facility] (ferry to attend PT). 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 Personal Factors Other Personal Factors That May Effect Blind, back pain Therapy/Recovery PT-OP-C Subjective Start: 04/27/22 07:26 Freq: Status: Active Protocol: Document 07/05/22 15:21 SP (Rec: 07/05/22 16:15 SP [id number]) OP-PT Subjective Patient Comments Patient Comments Pt reported doing HEP well with focus on L knee ROM. Feels like scar tissue breaking up. He states at home walked about 3 miles, elevation changes of 200ft down and 300 ft uphill, [facility]. 35 squats hold onto back chair maybe 90/90 as much as can trying to emphasize L ROM/WB as can. PT-OP-G Mobility & Gait Start: 04/27/22 07:26 Freq: Status: Active Protocol: Document 04/27/22 09:45 AMB (Rec: 04/28/22 15:53 AMB [id number]) OP Gait Assessment Comments Gait Comments Pt ambulates with antalgic gait, short step length. Crutch due to blindness. PT-OP-J Posture/Palpation/Skin Start: 04/27/22 07:26 Freq: Status: Active Protocol: Document 04/27/22 09:45 AMB (Rec: 04/27/22 11:19 AMB [id number]) Skin Assessment Circumference Measurement 2 Location L knee mid patella Measurement (Centimeters) 42 1 Location R knee mid patella Measurement (Centimeters) 38 PT-OP-K Range of Motion Start: 04/27/22 07:26 Freq: Status: Active Protocol: Document 07/05/22 15:21 SP (Rec: 07/05/22 16:15 SP [id number]) Knee Goniometric Range of Motion Knee Left Knee ROM WFL No Patient Position Supine Flexion Active (degrees) 142 Flexion Passive (degrees) 144 Extension Active (degrees) 0 Comments L knee flexion AROM:142 deg, gained 10 deg L knee extension: relaxed 2 deg, active ext 0 deg PT-OP-M Strength Start: 04/27/22 07:26 Freq: Status: Active Protocol: Document 04/27/22 09:45 AMB (Rec: 04/28/22 15:53 AMB [id number]) Knee Strength Knee Manual Muscle Testing Left Flexion (S2) 4 Good Extension (L3) 3 Fair PT-OP-Q Treatments Start: 04/27/22 07:26 Freq: Status: Active Protocol: Document 07/05/22 15:21 SP (Rec: 07/05/22 16:15 SP [id number]) Cardio Equipment Recumbent Elliptical ([employer]) Duration (Minutes) 6 Resistance 10 Seat Position see 10 Other UEs/ LEs Gym Equipment Shuttle Recovery Bilateral Squats Details cues for foot placement // Shuttle Recovery Platform Stable Reps/Time DL 75# x 30 total (90 deg,130 deg), 100#x35 (130 deg), 125# x10 (130 deg) Unilateral Squats Details LLE 37#x15 (140 deg) Shuttle Recovery Platform Stable Reps/Time AAROM L knee increases flexion /DF ROM Therapeutic Exercises Supine Exercises heel slide Supine Exercise Name Measurements taken Side left Comments 2-142, 0-144deg, see measurements/goal progress today assessment Self-Care/Home Management Treatment Education Patient Education Home Exercise Program Other Education Time spent discussing progression in goals, HEP and activity level to allow I in community and functional deep squat personal goal hasn't achieved yet. Gap in schedule due to decrease appt availability since last tx, showed good progress in self allowance progression. PT-OP-T Assessment and Plan Start: 04/27/22 07:26 Freq: Status: Active Protocol: Document 07/05/22 15:21 SP (Rec: 07/05/22 16:15 SP [id number]) Physical Therapy Assessment Goals Three Impairment Strength Short Term Goal (STG) Nate will move from sit to stand with even weightbearing to show improved knee strength . 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 07/05/22: progressing: pt stated that can perform 35 squat contact balance back chair with more emphasis of LE but not full Range with body weight with contact chair for support. LTG Duration 10 weeks (progressing 07/05/22) Two Impairment Gait Short Term Goal (STG) Nate will ambulate with AD over smooth surfaces for 5 minutes without antalgic gait. 07/05/22: Goal Met: progressed to walking 200ft decline, 300ft incline elevation 3 miles over the weekend with just sight stick for awareness guidance find edge road. STG Duration 4 weeks GOAL MET 07/05/22 Detention Goal (LTG) Nate will ambulate without AD over uneven terrain for 6 minutes without loss of balance or antalgic gait. 07/05/22: GOAL MET: Able to increase distance with incline /decline 3 miles with just guided stick for awareness edge road. LTG Duration GOAL MET 07/05/22 One Impairment ROM Short Term Goal (STG) Nate will improve his knee flexion range to 110 degrees. STG Duration MET--137 Detention Goal (LTG) Nate will improve his knee range to neutral extension. missing 3 degrees 07/05/22: GOAL MET: 2 deg relaxed, 0 active extension L knee. LTG Duration GOAL MET 07/05/22 Progress Towards Goals Progress Towards Goals Progressing Toward Goals Progress Comments -L knee flexion AROM:142 deg with knee tension at end range gained 10 deg -L knee extension AROM: relaxed 2 deg, active ext 0 deg *Able to increase distance with incline/decline 3 miles with just guided stick for awareness edge road. -Pt finds PT equipment helps alot with progressive ROM and wants to continue to progress rest of range. Assessment Summary Assessment Pt making gains in ROM, progressing squats but not able to perform unsupported of chair. 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 Physical Therapy Plan Frequency and Duration Frequency of Treatment 2x/Week Duration of Treatment 10 weeks Plan of Care Start Date 04/27/22 Plan of Care End Date 07/06/22 Therapeutic Interventions Therapeutic Interventions Gait Training,Home Exercise Program,Manual Therapy, Neuromuscular Re-education, Self-Care/Home Management, Therapeutic Activities, Therapeutic Exercises Modalities Cold Pack/Ice Massage,Electric Stimulation Next Visit Focus/Plan Next Note Type Progress Note Next Visit Plan PT to complete PN/POC update before next appt. *Progress knee flexion and extension functional mobility to allow deep squat pick something up/get up off ground unsupported personal goal. POC: Focus on terminal knee extension, continue strengthening as tolerated, further assess balance
--- NOTE | 2022-07-07 13:17 | PT.OPPOC ---
Physical, Occupational & Speech Therapy At [facility] Current Diagnoses Presence of artificial knee joint, bilateral (07/05/22) Visit Care Team Role Provider Type Katia Cid DO Family Provider Physician Primary Care Provider Specialty: Family Practice Address: [address] [place] [address], [facility], [place], [address] Email: [email or web address] Delgadillo MD Attending Provider Non-Staff Referring Provider Specialty: Orthopedics Address: [address] [place] [address] [address], [place], [address] Email: Plan Of Care PT-OP-T Assessment and Plan Start: 04/27/22 07:26 Freq: Status: Active Protocol: Document 07/07/22 12:57 AMB (Rec: 07/07/22 13:17 AMB [id number]) Physical Therapy Assessment Goals Three Impairment Strength Short Term Goal (STG) Nate will move from sit to stand with even weightbearing to show improved knee strength . 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 07/05/22: progressing: pt stated that can perform 35 squat contact balance back chair with more emphasis of LE but not full Range with body weight with contact chair for support. LTG Duration 10 weeks (progressing 07/05/22) Two Impairment Gait Short Term Goal (STG) Nate will ambulate with AD over smooth surfaces for 5 minutes without antalgic gait. 07/05/22: Goal Met: progressed to walking 200ft decline, 300ft incline elevation 3 miles over the weekend with just sight stick for awareness guidance find edge road. STG Duration 4 weeks GOAL MET 07/05/22 Packing Machine Feeder Goal (LTG) Nate will ambulate without AD over uneven terrain for 6 minutes without loss of balance or antalgic gait. 07/05/22: GOAL MET: Able to increase distance with incline /decline 3 miles with just guided stick for awareness edge road. LTG Duration GOAL MET 07/05/22 One Impairment ROM Short Term Goal (STG) Nate will improve his knee flexion range to 110 degrees. STG Duration MET--137 Prison Goal (LTG) Nate will improve his knee range to neutral extension. missing 3 degrees 07/05/22: GOAL MET: 2 deg relaxed, 0 active extension L knee. LTG Duration GOAL MET 07/05/22 Assessment Summary Assessment Pt making gains in ROM, progressing squats but not able to perform unsupported off chair. 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 ROM/ gait improving, but does have tension in leg wtih longer distance gait. Pt will benefit from continued PT to assist with continued strengthening to support goal of full squat with good balance. Physical Therapy Plan Frequency and Duration Frequency of Treatment 2x/Week Duration of Treatment 8 weeks Plan of Care Start Date 07/07/22 Plan of Care End Date 09/01/22 Therapeutic Interventions Therapeutic Interventions Gait Training,Home Exercise Program,Manual Therapy, Neuromuscular Re-education, Self-Care/Home Management, Therapeutic Activities, Therapeutic Exercises Modalities Cold Pack/Ice Massage,Electric Stimulation Next Visit Focus/Plan Next Note Type Progress Note Next Visit Plan Progress knee flexion and extension functional mobility to allow deep squat pick something up/get up off ground unsupported: personal goal. Plan of Care Dates Plan of Care Start Date 07/07/22 Plan of Care End Date 09/01/22 Electronically Signed by: Kristen Gamez, PT 07/07/22 8957 If you are in agreement with this Plan of Care, please return a signed and dated copy. I have reviewed this Plan of Care and certify that the skilled therapy services above are required to meet the patient?s needs. Physician Signature Date Printed Name and Credentials Clinical Instructor Signature Printed Name and Credentials
--- NOTE | 2022-07-12 12:24 | PT.OTN ---
Current Diagnoses Presence of artificial knee joint, bilateral (07/12/22) Physical Therapy Treatment Note PT-OP-A Visit Information Start: 04/27/22 07:26 Freq: Status: Active Protocol: Document 07/12/22 11:22 NBM (Rec: 07/12/22 12:22 [facility] [id number]) Out-Patient Physical Therapy Visit Information Visit Information Visit Type Treatment Note Visit Start Time 11:17 Visit Stop Time 12:06 Total Visit Minutes 49 Visit Number 16 Number of BENDING MACHINE SET UP OPERATOR Visits 1 PT-OP-B Current Condition Start: 04/27/22 07:26 Freq: Status: Active Protocol: Document 04/27/22 09:45 AMB (Rec: 04/28/22 16:00 AMB [id number]) Current Condition History of Current Condition Onset Date 04/19/22 Current Complaints L TKA History of Current Condition Nate had L TKA on 04/19. He recently had R TKA revision. 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 He lives on [facility] (ferry to attend PT). 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 Personal Factors Other Personal Factors That May Effect Blind, back pain Therapy/Recovery PT-OP-C Subjective Start: 04/27/22 07:26 Freq: Status: Active Protocol: Document 07/12/22 11:22 NBM (Rec: 07/12/22 12:22 [facility] [id number]) OP-PT Subjective Patient Comments Patient Comments Pt reports walking stick broke this morning and he has tightness in R piriformis, superior glutes and possibly psoas. HEP compliant. PT-OP-G Mobility & Gait Start: 04/27/22 07:26 Freq: Status: Active Protocol: Document 04/27/22 09:45 AMB (Rec: 04/28/22 15:53 AMB [id number]) OP Gait Assessment Comments Gait Comments Pt ambulates with antalgic gait, short step length. Crutch due to blindness. PT-OP-J Posture/Palpation/Skin Start: 04/27/22 07:26 Freq: Status: Active Protocol: Document 04/27/22 09:45 AMB (Rec: 04/27/22 11:19 AMB [id number]) Skin Assessment Circumference Measurement 2 Location L knee mid patella Measurement (Centimeters) 42 1 Location R knee mid patella Measurement (Centimeters) 38 PT-OP-K Range of Motion Start: 04/27/22 07:26 Freq: Status: Active Protocol: Document 07/05/22 15:21 SP (Rec: 07/05/22 16:15 SP [id number]) Knee Goniometric Range of Motion Knee Left Knee ROM WFL No Patient Position Supine Flexion Active (degrees) 142 Flexion Passive (degrees) 144 Extension Active (degrees) 0 Comments L knee flexion AROM:142 deg, gained 10 deg L knee extension: relaxed 2 deg, active ext 0 deg PT-OP-M Strength Start: 04/27/22 07:26 Freq: Status: Active Protocol: Document 04/27/22 09:45 AMB (Rec: 04/28/22 15:53 AMB [id number]) Knee Strength Knee Manual Muscle Testing Left Flexion (S2) 4 Good Extension (L3) 3 Fair PT-OP-Q Treatments Start: 04/27/22 07:26 Freq: Status: Active Protocol: Document 07/12/22 11:22 NBM (Rec: 07/12/22 12:22 NB [id number]) Cardio Equipment Recumbent Stepper (Sci-Fit) Duration (Minutes) 7 Resistance 8 Seat Position 12 Gym Equipment Shuttle Recovery Bilateral Squats Details cues for foot placement // Shuttle Recovery Platform Stable Reps/Time DL 100# 2x15 - challenging today Unilateral Squats Details LLE 25#x15 (142 deg) Shuttle Recovery Platform Stable Reps/Time AAROM L knee increases flexion /DF ROM Therapeutic Exercises Standing Exercises TKE Standing Exercise Name 3-way Side left Resistance Lvl 3 Tb Equipment 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 PT-OP-T Assessment and Plan Start: 04/27/22 07:26 Freq: Status: Active Protocol: Document 07/12/22 11:22 NB (Rec: 07/12/22 12:22 [facility] [id number]) Physical Therapy Assessment Goals Three Impairment Strength Short Term Goal (STG) Nate will move from sit to stand with even weightbearing to show improved knee strength . 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 9/12/22: progressing: pt stated that can perform 35 squat contact balance back chair with more emphasis of LE but not full Range with body weight with contact chair for support. LTG Duration 10 weeks (progressing 07/05/22) Two Impairment Gait Short Term Goal (STG) Nate will ambulate with AD over smooth surfaces for 5 minutes without antalgic gait. 07/05/22: Goal Met: progressed to walking 200ft decline, 300ft incline elevation 3 miles over the weekend with just sight stick for awareness guidance find edge road. STG Duration 4 weeks GOAL MET 07/05/22 Residential Goal (LTG) Nate will ambulate without AD over uneven terrain for 6 minutes without loss of balance or antalgic gait. 07/05/22: GOAL MET: Able to increase distance with incline /decline 3 miles with just guided stick for awareness edge road. LTG Duration GOAL MET 07/05/22 One Impairment ROM Short Term Goal (STG) Nate will improve his knee flexion range to 110 degrees. STG Duration MET--137 Residential Goal (LTG) Nate will improve his knee range to neutral extension. missing 3 degrees 07/05/22: GOAL MET: 2 deg relaxed, 0 active extension L knee. LTG Duration GOAL MET 07/05/22 Assessment Summary Assessment Pt presents today without walking stick which broke this morning, and w/ observable hip rotation with confirmation of R piriformis and glute tightness. Pt demonstrates increased strength w/ Lvl 3 band for 3-way terminal knee extension. Palpable tension in R piriformis and glutes decreased with manual therapy. Physical Therapy Plan Next Visit Focus/Plan Next Note Type Treatment Note Next Visit Plan Progress knee flexion and extension functional mobility to allow deep squat pick something up/get up off ground unsupported: personal goal.
--- NOTE | 2022-07-12 12:30 | PT.OTN ---
Current Diagnoses Presence of artificial knee joint, bilateral (07/12/22) Physical Therapy Treatment Note PT-OP-A Visit Information Start: 04/27/22 07:26 Freq: Status: Active Protocol: Document 07/12/22 11:22 NBM (Rec: 07/12/22 12:22 [facility] [id number]) Out-Patient Physical Therapy Visit Information Visit Information Visit Type Treatment Note Visit Start Time 11:20 Visit Stop Time 12:06 Total Visit Minutes 46 Visit Number 16 Number of BRAKE REPAIRER RAILROAD Visits 1 PT-OP-B Current Condition Start: 04/27/22 07:26 Freq: Status: Active Protocol: Document 04/27/22 09:45 AMB (Rec: 04/28/22 16:00 AMB [id number]) Current Condition History of Current Condition Onset Date 04/19/22 Current Complaints L TKA History of Current Condition Nate had L TKA on 04/19. He recently had R TKA revision. 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 He lives on [facility] ([place] to attend PT). 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 Personal Factors Other Personal Factors That May Effect Blind, back pain Therapy/Recovery PT-OP-C Subjective Start: 04/27/22 07:26 Freq: Status: Active Protocol: Document 07/12/22 11:22 NBM (Rec: 07/12/22 12:22 [facility] [id number]) OP-PT Subjective Patient Comments Patient Comments Pt reports walking stick broke this morning and he has tightness in R piriformis, superior glutes and possibly psoas. HEP compliant. PT-OP-G Mobility & Gait Start: 04/27/22 07:26 Freq: Status: Active Protocol: Document 04/27/22 09:45 AMB (Rec: 04/28/22 15:53 AMB [id number]) OP Gait Assessment Comments Gait Comments Pt ambulates with antalgic gait, short step length. Crutch due to blindness. PT-OP-J Posture/Palpation/Skin Start: 04/27/22 07:26 Freq: Status: Active Protocol: Document 04/27/22 09:45 AMB (Rec: 04/27/22 11:19 AMB [id number]) Skin Assessment Circumference Measurement 2 Location L knee mid patella Measurement (Centimeters) 42 1 Location R knee mid patella Measurement (Centimeters) 38 PT-OP-K Range of Motion Start: 04/27/22 07:26 Freq: Status: Active Protocol: Document 07/05/22 15:21 SP (Rec: 07/05/22 16:15 SP [id number]) Knee Goniometric Range of Motion Knee Left Knee ROM WFL No Patient Position Supine Flexion Active (degrees) 142 Flexion Passive (degrees) 144 Extension Active (degrees) 0 Comments L knee flexion AROM:142 deg, gained 10 deg L knee extension: relaxed 2 deg, active ext 0 deg PT-OP-M Strength Start: 04/27/22 07:26 Freq: Status: Active Protocol: Document 04/27/22 09:45 AMB (Rec: 04/28/22 15:53 AMB [id number]) Knee Strength Knee Manual Muscle Testing Left Flexion (S2) 4 Good Extension (L3) 3 Fair PT-OP-Q Treatments Start: 04/27/22 07:26 Freq: Status: Active Protocol: Document 07/12/22 11:22 NBM (Rec: 07/12/22 12:22 NBM [id number]) Cardio Equipment Recumbent Stepper (Sci-Fit) Duration (Minutes) 7 Resistance 8 Seat Position 12 Gym Equipment Shuttle Recovery Bilateral Squats Details cues for foot placement // Shuttle Recovery Platform Stable Reps/Time DL 100# 2x15 - challenging today Unilateral Squats Details LLE 25#x15 (142 deg) Shuttle Recovery Platform Stable Reps/Time AAROM L knee increases flexion /DF ROM Therapeutic Exercises Standing Exercises TKE Standing Exercise Name 3-way Side left Resistance Lvl 3 Tb Equipment Used at staircase for MANAGER PERIOPERATIVE Reps/Minutes 10ea Comments full TKE, vc for keeping knee behind toes Manual Therapy Treatment Soft Tissue Mobilization R hip Body Location piriformis, superior glute Mobilization Type Myofascial Release,Rolling, Sustained Pressure,Trigger Point Release Intensity/Depth Deep Body Position Sidelying Comments prone piriformis release w/ hiP IR/ER Neuro Re-Education Treatment Balance Activities Tandem Details tandem walking Surface firm Equipment // bars Reps/Duration 4 x 10 ft Comments mild cues for R foot ER. PT-OP-T Assessment and Plan Start: 04/27/22 07:26 Freq: Status: Active Protocol: Document 07/12/22 11:22 NBM (Rec: 07/12/22 12:22 NBM [id number]) Physical Therapy Assessment Goals Three Impairment Strength Short Term Goal (STG) Nate will move from sit to stand with even weightbearing to show improved knee strength . 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 07/05/22: progressing: pt stated that can perform 35 squat contact balance back chair with more emphasis of LE but not full Range with body weight with contact chair for support. LTG Duration 10 weeks (progressing 07/05/22) Two Impairment Gait Short Term Goal (STG) Nate will ambulate with AD over smooth surfaces for 5 minutes without antalgic gait. 07/05/22: Goal Met: progressed to walking 200ft decline, 300ft incline elevation 3 miles over the weekend with just sight stick for awareness guidance find edge road. STG Duration 4 weeks GOAL MET 07/05/22 Mcfp Goal (LTG) Nate will ambulate without AD over uneven terrain for 6 minutes without loss of balance or antalgic gait. 07/05/22: GOAL MET: Able to increase distance with incline /decline 3 miles with just guided stick for awareness edge road. LTG Duration GOAL MET 07/05/22 One Impairment ROM Short Term Goal (STG) Nate will improve his knee flexion range to 110 degrees. STG Duration MET--137 Helper Maintenance Cleaning Goal (LTG) Nate will improve his knee range to neutral extension. missing 3 degrees 07/05/22: GOAL MET: 2 deg relaxed, 0 active extension L knee. LTG Duration GOAL MET 07/05/22 Assessment Summary Assessment Pt presents today without walking stick which broke this morning, and w/ observable hip rotation with confirmation of R piriformis and glute tightness. Pt demonstrates increased strength w/ Lvl 3 band for 3-way terminal knee extension. Palpable tension in R piriformis and glutes decreased with manual therapy. Physical Therapy Plan Next Visit Focus/Plan Next Note Type Treatment Note Next Visit Plan Progress knee flexion and extension functional mobility to allow deep squat pick something up/get up off ground unsupported: personal goal.
--- NOTE | 2022-07-21 15:18 | PT.OTN ---
Current Diagnoses Presence of artificial knee joint, bilateral (07/21/22) Physical Therapy Treatment Note PT-OP-A Visit Information Start: 04/27/22 07:26 Freq: Status: Active Protocol: Document 07/21/22 14:36 AW (Rec: 07/21/22 15:18 AW [id number]) Out-Patient Physical Therapy Visit Information Visit Information Visit Type Treatment Note Visit Start Time 14:36 Visit Stop Time 15:15 Total Visit Minutes 39 Visit Number 17 Number of MANAGER INDUSTRIAL Visits 0 Evaluation Information Evaluation Date 04/27/22 PT-OP-B Current Condition Start: 04/27/22 07:26 Freq: Status: Active Protocol: Document 04/27/22 09:45 AMB (Rec: 04/28/22 16:00 AMB [id number]) Current Condition History of Current Condition Onset Date 04/19/22 Current Complaints L TKA History of Current Condition Nate had L TKA on 04/19. He recently had R TKA revision. 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 He lives on [facility] ([place] to attend PT). 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 Personal Factors Other Personal Factors That May Effect Blind, back pain Therapy/Recovery PT-OP-C Subjective Start: 04/27/22 07:26 Freq: Status: Active Protocol: Document 07/21/22 14:36 AW (Rec: 07/21/22 15:18 AW [id number]) OP-PT Subjective Patient Comments Patient Comments Pt notes this is his second to last visit and wonders if he should continue with therapy. PT-OP-G Mobility & Gait Start: 04/27/22 07:26 Freq: Status: Active Protocol: Document 04/27/22 09:45 AMB (Rec: 04/28/22 15:53 AMB [id number]) OP Gait Assessment Comments Gait Comments Pt ambulates with antalgic gait, short step length. Crutch due to blindness. PT-OP-J Posture/Palpation/Skin Start: 04/27/22 07:26 Freq: Status: Active Protocol: Document 04/27/22 09:45 AMB (Rec: 04/27/22 11:19 AMB [id number]) Skin Assessment Circumference Measurement 2 Location L knee mid patella Measurement (Centimeters) 42 1 Location R knee mid patella Measurement (Centimeters) 38 PT-OP-K Range of Motion Start: 04/27/22 07:26 Freq: Status: Active Protocol: Document 07/05/22 15:21 SP (Rec: 07/05/22 16:15 SP [id number]) Knee Goniometric Range of Motion Knee Left Knee ROM WFL No Patient Position Supine Flexion Active (degrees) 142 Flexion Passive (degrees) 144 Extension Active (degrees) 0 Comments L knee flexion AROM:142 deg, gained 10 deg L knee extension: relaxed 2 deg, active ext 0 deg PT-OP-M Strength Start: 04/27/22 07:26 Freq: Status: Active Protocol: Document 04/27/22 09:45 AMB (Rec: 04/28/22 15:53 AMB [id number]) Knee Strength Knee Manual Muscle Testing Left Flexion (S2) 4 Good Extension (L3) 3 Fair PT-OP-Q Treatments Start: 04/27/22 07:26 Freq: Status: Active Protocol: Document 07/21/22 14:36 AW (Rec: 07/21/22 15:18 AW [id number]) Cardio Equipment Recumbent Stepper (Sci-Fit) Duration (Minutes) 5 Resistance 8 Seat Position 12 Gym Equipment Shuttle Recovery Bilateral Squats Details cues for foot placement // Shuttle Recovery Platform Stable Reps/Time DL 100# 2x15 - challenging today Unilateral Squats Details LLE 25#x15 (142 deg) Shuttle Recovery Platform Stable Reps/Time AAROM L knee increases flexion /DF ROM Therapeutic Exercises Standing Exercises TKE Standing Exercise Name 3-way Side left Resistance Lvl 3 Tb Equipment Used at staircase for IT APPLICATIONS DEVELOPER Reps/Minutes 10ea Comments full TKE, vc for keeping knee behind toes mini squat Standing Exercise Name full depth Equipment Used rail in front for BUE support Reps/Minutes 10 Neuro Re-Education Treatment Balance Activities Tandem Details tandem walking Surface firm Equipment // bars Reps/Duration 9 x 10 ft Comments fwd/bwd PT-OP-T Assessment and Plan Start: 04/27/22 07:26 Freq: Status: Active Protocol: Document 07/21/22 14:36 AW (Rec: 07/21/22 15:18 AW [id number]) Physical Therapy Assessment Goals Three Impairment Strength Short Term Goal (STG) Nate will move from sit to stand with even weightbearing to show improved knee strength . 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 07/05/22: progressing: pt stated that can perform 35 squat contact balance back chair with more emphasis of LE but not full Range with body weight with contact chair for support. LTG Duration 10 weeks (progressing 07/05/22) Two Impairment Gait Short Term Goal (STG) Nate will ambulate with AD over smooth surfaces for 5 minutes without antalgic gait. 07/05/22: Goal Met: progressed to walking 200ft decline, 300ft incline elevation 3 miles over the weekend with just sight stick for awareness guidance find edge [address]. STG Duration 4 weeks GOAL MET 07/05/22 Transportation Attendant Goal (LTG) Nate will ambulate without AD over uneven terrain for 6 minutes without loss of balance or antalgic gait. 07/05/22: GOAL MET: Able to increase distance with incline /decline 3 miles with just guided stick for awareness edge [address]. LTG Duration GOAL MET 07/05/22 One Impairment ROM Short Term Goal (STG) Nate will improve his knee flexion range to 110 degrees. STG Duration MET--137 Transportation Attendant Goal (LTG) Nate will improve his knee range to neutral extension. missing 3 degrees 07/05/22: GOAL MET: 2 deg relaxed, 0 active extension L knee. LTG Duration GOAL MET 07/05/22 Assessment Summary Assessment Discussed goal progress and expected outcomes. Pt continues to be frustrated with left knee flexion which is limited compared with right . Encouraged pt to discuss goals with evaluating therapist at next visit. Physical Therapy Plan Frequency and Duration Frequency of Treatment 2x/Week Plan of Care Start Date 07/07/22 Plan of Care End Date 09/01/22
--- NOTE | 2022-07-23 14:36 | PT.OTN ---
Current Diagnoses Presence of artificial knee joint, bilateral (07/23/22) Physical Therapy Treatment Note PT-OP-A Visit Information Start: 04/27/22 07:26 Freq: Status: Active Protocol: Document 07/23/22 14:01 AMB (Rec: 07/23/22 14:28 AMB [id number]) Out-Patient Physical Therapy Visit Information Visit Information Visit Type Treatment Note Visit Start Time 14:00 Visit Stop Time 14:30 Total Visit Minutes 30 Visit Number 18 PT-OP-B Current Condition Start: 04/27/22 07:26 Freq: Status: Active Protocol: Document 04/27/22 09:45 AMB (Rec: 04/28/22 16:00 AMB [id number]) Current Condition History of Current Condition Onset Date 04/19/22 Current Complaints L TKA History of Current Condition Nate had L TKA on 04/19. He recently had R TKA revision. 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 He lives on [facility] ([place] to attend PT). 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 Personal Factors Other Personal Factors That May Effect Blind, back pain Therapy/Recovery PT-OP-C Subjective Start: 04/27/22 07:26 Freq: Status: Active Protocol: Document 07/23/22 14:01 AMB (Rec: 07/23/22 14:28 AMB [id number]) OP-PT Subjective Patient Comments Patient Comments Pt is wanting to continue to work on strengthening balance and ROM, but therapist not available for over a month at a time that patient can come, pt declines waitlist due to traveling via [facility]. PT-OP-G Mobility & Gait Start: 04/27/22 07:26 Freq: Status: Active Protocol: Document 04/27/22 09:45 AMB (Rec: 04/28/22 15:53 AMB [id number]) OP Gait Assessment Comments Gait Comments Pt ambulates with antalgic gait, short step length. Crutch due to blindness. PT-OP-J Posture/Palpation/Skin Start: 04/27/22 07:26 Freq: Status: Active Protocol: Document 04/27/22 09:45 AMB (Rec: 04/27/22 11:19 AMB [id number]) Skin Assessment Circumference Measurement 2 Location L knee mid patella Measurement (Centimeters) 42 1 Location R knee mid patella Measurement (Centimeters) 38 PT-OP-K Range of Motion Start: 04/27/22 07:26 Freq: Status: Active Protocol: Document 07/05/22 15:21 SP (Rec: 07/05/22 16:15 SP [id number]) Knee Goniometric Range of Motion Knee Left Knee ROM WFL No Patient Position Supine Flexion Active (degrees) 142 Flexion Passive (degrees) 144 Extension Active (degrees) 0 Comments L knee flexion AROM:142 deg, gained 10 deg L knee extension: relaxed 2 deg, active ext 0 deg PT-OP-M Strength Start: 04/27/22 07:26 Freq: Status: Active Protocol: Document 04/27/22 09:45 AMB (Rec: 04/28/22 15:53 AMB [id number]) Knee Strength Knee Manual Muscle Testing Left Flexion (S2) 4 Good Extension (L3) 3 Fair PT-OP-Q Treatments Start: 04/27/22 07:26 Freq: Status: Active Protocol: Document 07/23/22 14:01 AMB (Rec: 07/23/22 14:28 AMB [id number]) Gym Equipment Shuttle Recovery Bilateral Squats Details cues for foot placement // Shuttle Recovery Platform Stable Reps/Time DL 100# 2x15 , 125# 1x15 Unilateral Squats Shuttle Recovery Platform Stable Therapeutic Exercises Supine Exercises 1 Supine Exercise Name quad stretch off side of table Reps/Minutes 30x3 Standing Exercises squat at kitchen sink Standing Exercise Name for sturdy UE support Reps/Minutes 10 PT-OP-T Assessment and Plan Start: 04/27/22 07:26 Freq: Status: Active Protocol: Document 07/23/22 14:01 AMB (Rec: 07/23/22 14:28 AMB [id number]) Physical Therapy Assessment Goals Three Impairment Strength Short Term Goal (STG) Nate will move from sit to stand with even weightbearing to show improved knee strength . 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 07/05/22: progressing: pt stated that can perform 35 squat contact balance back chair with more emphasis of LE but not full Range with body weight with contact chair for support. LTG Duration 10 weeks (progressing 07/05/22) Two Impairment Gait Short Term Goal (STG) Nate will ambulate with AD over smooth surfaces for 5 minutes without antalgic gait. 07/05/22: Goal Met: progressed to walking 200ft decline, 300ft incline elevation 3 miles over the weekend with just sight stick for awareness guidance find edge road. STG Duration 4 weeks GOAL MET 07/05/22 Detention Goal (LTG) Nate will ambulate without AD over uneven terrain for 6 minutes without loss of balance or antalgic gait. 07/05/22: GOAL MET: Able to increase distance with incline /decline 3 miles with just guided stick for awareness edge [address]. LTG Duration GOAL MET 07/05/22 One Impairment ROM Short Term Goal (STG) Nate will improve his knee flexion range to 110 degrees. STG Duration MET--137 Precision Honing Machine Operator Goal (LTG) Nate will improve his knee range to neutral extension. missing 3 degrees 07/05/22: GOAL MET: 2 deg relaxed, 0 active extension L knee. LTG Duration GOAL MET 07/05/22 Assessment Summary Assessment Pt to work on strengthening at home until therapist available again. Pt's ROM excellent, but not equal to other side. Pt continues to have goal of full squat, which he continues to need to use UE support. Physical Therapy Plan Frequency and Duration Frequency of Treatment 2x/Week Plan of Care Start Date 07/07/22 Plan of Care End Date 09/01/22 Therapeutic Interventions Therapeutic Interventions Gait Training,Home Exercise Program,Manual Therapy, Neuromuscular Re-education, Self-Care/Home Management, Therapeutic Activities, Therapeutic Exercises Modalities Cold Pack/Ice Massage,Electric Stimulation Next Visit Focus/Plan Next Note Type Treatment Note Next Visit Plan Progress knee flexion and extension functional mobility to allow deep squat pick something up/get up off ground unsupported: personal goal.
--- NOTE | 2022-09-07 12:00 | PT.OTN ---
Current Diagnoses Presence of artificial knee joint, bilateral (09/07/22) Physical Therapy Treatment Note PT-OP-A Visit Information Start: 04/27/22 07:26 Freq: Status: Active Protocol: Document 09/07/22 10:35 AMB (Rec: 09/07/22 11:19 AMB [id number]) Out-Patient Physical Therapy Visit Information Visit Information Visit Type Discharge Summary Visit Start Time 10:30 Visit Stop Time 11:14 Total Visit Minutes 45 Visit Number 19 PT-OP-B Current Condition Start: 04/27/22 07:26 Freq: Status: Active Protocol: Document 04/27/22 09:45 AMB (Rec: 04/28/22 16:00 AMB [id number]) Current Condition History of Current Condition Onset Date 04/19/22 Current Complaints L TKA History of Current Condition Nate had L TKA on 04/19. He recently had R TKA revision. 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 He lives on [facility] ([facility] to attend PT). 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 Personal Factors Other Personal Factors That May Effect Blind, back pain Therapy/Recovery PT-OP-C Subjective Start: 04/27/22 07:26 Freq: Status: Active Protocol: Document 09/07/22 10:35 AMB (Rec: 09/07/22 11:19 AMB [id number]) OP-PT Subjective Patient Comments Patient Comments Pt notes groin strain last week during squats. PT-OP-G Mobility & Gait Start: 04/27/22 07:26 Freq: Status: Active Protocol: Document 04/27/22 09:45 AMB (Rec: 04/28/22 15:53 AMB [id number]) OP Gait Assessment Comments Gait Comments Pt ambulates with antalgic gait, short step length. Crutch due to blindness. PT-OP-J Posture/Palpation/Skin Start: 04/27/22 07:26 Freq: Status: Active Protocol: Document 04/27/22 09:45 AMB (Rec: 04/27/22 11:19 AMB [id number]) Skin Assessment Circumference Measurement 2 Location L knee mid patella Measurement (Centimeters) 42 1 Location R knee mid patella Measurement (Centimeters) 38 PT-OP-K Range of Motion Start: 04/27/22 07:26 Freq: Status: Active Protocol: Document 07/05/22 15:21 SP (Rec: 07/05/22 16:15 SP [id number]) Knee Goniometric Range of Motion Knee Left Knee ROM WFL No Patient Position Supine Flexion Active (degrees) 142 Flexion Passive (degrees) 144 Extension Active (degrees) 0 Comments L knee flexion AROM:142 deg, gained 10 deg L knee extension: relaxed 2 deg, active ext 0 deg PT-OP-M Strength Start: 04/27/22 07:26 Freq: Status: Active Protocol: Document 04/27/22 09:45 AMB (Rec: 04/28/22 15:53 AMB [id number]) Knee Strength Knee Manual Muscle Testing Left Flexion (S2) 4 Good Extension (L3) 3 Fair PT-OP-Q Treatments Start: 04/27/22 07:26 Freq: Status: Active Protocol: Document 09/07/22 10:35 AMB (Rec: 09/07/22 11:19 AMB [id number]) Cardio Equipment Treadmill Duration (Minutes) 10 Speed 1.5 Incline 0 Therapeutic Exercises Supine Exercises 1 Supine Exercise Name quad stretch off side of table Reps/Minutes 30x3 quad set Side left Reps/Minutes 10 Comments verbal and tactile cues Manual Therapy Treatment Soft Tissue Mobilization scar massage Mobilization Type Myofascial Release,Strumming Intensity/Depth Moderate edema massage Body Location L Knee Comments with passive flexion and extension Joint Mobilizations patella Joint patellofemoral Direction med/lat, inf/sup Grade II Body Position Supine Reps/Duration 2 min PT-OP-T Assessment and Plan Start: 04/27/22 07:26 Freq: Status: Active Protocol: Document 09/07/22 10:35 AMB (Rec: 09/07/22 11:19 AMB [id number]) Physical Therapy Assessment Goals Three Impairment Strength Short Term Goal (STG) Nate will move from sit to stand with even weightbearing to show improved knee strength . 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 07/05/22: progressing: pt stated that can perform 35 squat contact balance back chair with more emphasis of LE but not full Range with body weight with contact chair for support. LTG Duration MET Two Impairment Gait Short Term Goal (STG) Nate will ambulate with AD over smooth surfaces for 5 minutes without antalgic gait. 07/05/22: Goal Met: progressed to walking 200ft decline, 300ft incline elevation 3 miles over the weekend with just sight stick for awareness guidance find edge road. STG Duration 4 weeks GOAL MET 07/05/22 Drug Counselor Goal (LTG) Nate will ambulate without AD over uneven terrain for 6 minutes without loss of balance or antalgic gait. 07/05/22: GOAL MET: Able to increase distance with incline /decline 3 miles with just guided stick for awareness edge road. LTG Duration GOAL MET 07/05/22 One Impairment ROM Short Term Goal (STG) Nate will improve his knee flexion range to 110 degrees. STG Duration MET--137 Alf Goal (LTG) Nate will improve his knee range to neutral extension. missing 3 degrees 07/05/22: GOAL MET: 2 deg relaxed, 0 active extension L knee. LTG Duration GOAL MET 07/05/22 Assessment Summary Assessment Pt is doing well with his ROM and strength. He is now discharged from physical therapy. Would suggest continued distal scar work. Pt is not quite equal in knee flexion but has over 137 degrees of flexion. He still wants to work to improve that. He is independent with his HEP at this time. Physical Therapy Plan Frequency and Duration Frequency of Treatment 1x/Week Duration of treatment (weeks) 1 Plan of Care Start Date 09/01/22 Plan of Care End Date 09/08/22 Therapeutic Interventions Therapeutic Interventions Gait Training,Home Exercise Program,Manual Therapy, Neuromuscular Re-education, Self-Care/Home Management, Therapeutic Activities, Therapeutic Exercises Modalities Cold Pack/Ice Massage,Electric Stimulation Discharge Physical Therapy Discharge Reasons Goals Met
--- NOTE | 2022-09-07 16:00 | PT.OPPOC ---
Physical, Occupational & Speech Therapy At [facility] Current Diagnoses Presence of artificial knee joint, bilateral (09/07/22) Visit Care Team Role Provider Type Katia Cid DO Family Provider Physician Primary Care Provider Specialty: Family Practice Address: [address] [place] [address], [facility] [address], [place], [address] Email: [email or web address] Rafael Delgadillo MD Attending Provider Non-Staff Referring Provider Specialty: Orthopedics Address: [address] [facility] [address], [place], [address] Email: Plan Of Care PT-OP-T Assessment and Plan Start: 04/27/22 07:26 Freq: Status: Active Protocol: Document 09/07/22 10:35 AMB (Rec: 09/07/22 11:19 AMB [id number]) Physical Therapy Assessment Goals Three Impairment Strength Short Term Goal (STG) Nate will move from sit to stand with even weightbearing to show improved knee strength . 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 07/05/22: progressing: pt stated that can perform 35 squat contact balance back chair with more emphasis of LE but not full Range with body weight with contact chair for support. LTG Duration MET Two Impairment Gait Short Term Goal (STG) Nate will ambulate with AD over smooth surfaces for 5 minutes without antalgic gait. 07/05/22: Goal Met: progressed to walking 200ft decline, 300ft incline elevation 3 miles over the weekend with just sight stick for awareness guidance find edge road. STG Duration 4 weeks GOAL MET 07/05/22 Manager Outpatient Goal (LTG) Nate will ambulate without AD over uneven terrain for 6 minutes without loss of balance or antalgic gait. 07/05/22: GOAL MET: Able to increase distance with incline /decline 3 miles with just guided stick for awareness edge road. LTG Duration GOAL MET 07/05/22 One Impairment ROM Short Term Goal (STG) Nate will improve his knee flexion range to 110 degrees. STG Duration MET--137 Manager Outpatient Goal (LTG) Nate will improve his knee range to neutral extension. missing 3 degrees 07/05/22: GOAL MET: 2 deg relaxed, 0 active extension L knee. LTG Duration GOAL MET 07/05/22 Assessment Summary Assessment Pt is doing well with his ROM and strength. He is now discharged from physical therapy. Would suggest continued distal scar work. Pt is not quite equal in knee flexion but has over 137 degrees of flexion. He still wants to work to improve that. He is independent with his HEP at this time. Physical Therapy Plan Frequency and Duration Frequency of Treatment 1x/Week Duration of treatment (weeks) 1 Plan of Care Start Date 09/01/22 Plan of Care End Date 09/08/22 Therapeutic Interventions Therapeutic Interventions Gait Training,Home Exercise Program,Manual Therapy, Neuromuscular Re-education, Self-Care/Home Management, Therapeutic Activities, Therapeutic Exercises Modalities Cold Pack/Ice Massage,Electric Stimulation Discharge Physical Therapy Discharge Reasons Goals Met Plan of Care Dates Plan of Care Start Date 09/01/22 Plan of Care End Date 09/08/22 Electronically Signed by: Kristen Gamez, PT 09/13/22 1041 If you are in agreement with this Plan of Care, please return a signed and dated copy. I have reviewed this Plan of Care and certify that the skilled therapy services above are required to meet the patient?s needs. Physician Signature Date Printed Name and Credentials Clinical Instructor Signature Printed Name and Credentials
--- NOTE | 2022-09-07 16:00 | PT.OPDS ---
Current Diagnoses Presence of artificial knee joint, bilateral (09/07/22) Visit Care Team Role Provider Type Katia Cid DO Family Provider Physician Primary Care Provider Specialty: Family Practice Address: [facility], [facility] [address], [place], [address] Email: [email or web address] Rafael Delgadillo MD Attending Provider Non-Staff Referring Provider Specialty: Orthopedics Address: [address] [place] [address], [place], [address] Email: Visit Number Visit Number 19 Discharge Summary PT-OP-B Current Condition Start: 04/27/22 07:26 Freq: Status: Active Protocol: Document 04/27/22 09:45 AMB (Rec: 04/28/22 16:00 AMB [id number]) Current Condition History of Current Condition Onset Date 04/19/22 Current Complaints L TKA History of Current Condition Nate had L TKA on 04/19. He recently had R TKA revision. 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 He [address] on [facility] (ferr to attend PT). 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 Personal Factors Other Personal Factors That May Effect Blind, back pain Therapy/Recovery PT-OP-C Subjective Start: 04/27/22 07:26 Freq: Status: Active Protocol: Document 09/07/22 10:35 AMB (Rec: 09/07/22 11:19 AMB [id number]) OP-PT Subjective Patient Comments Patient Comments Pt notes groin strain last week during squats. PT-OP-G Mobility & Gait Start: 04/27/22 07:26 Freq: Status: Active Protocol: Document 04/27/22 09:45 AMB (Rec: 04/28/22 15:53 AMB [id number]) OP Gait Assessment Comments Gait Comments Pt ambulates with antalgic gait, short step length. Crutch due to blindness. PT-OP-J Posture/Palpation/Skin Start: 04/27/22 07:26 Freq: Status: Active Protocol: Document 04/27/22 09:45 AMB (Rec: 04/27/22 11:19 AMB [id number]) Skin Assessment Circumference Measurement 2 Location L knee mid patella Measurement (Centimeters) 42 1 Location R knee mid patella Measurement (Centimeters) 38 PT-OP-K Range of Motion Start: 04/27/22 07:26 Freq: Status: Active Protocol: Document 07/05/22 15:21 SP (Rec: 07/05/22 16:15 SP [id number]) Knee Goniometric Range of Motion Knee Left Knee ROM WFL No Patient Position Supine Flexion Active (degrees) 142 Flexion Passive (degrees) 144 Extension Active (degrees) 0 Comments L knee flexion AROM:142 deg, gained 10 deg L knee extension: relaxed 2 deg, active ext 0 deg PT-OP-M Strength Start: 04/27/22 07:26 Freq: Status: Active Protocol: Document 04/27/22 09:45 AMB (Rec: 04/28/22 15:53 AMB [id number]) Knee Strength Knee Manual Muscle Testing Left Flexion (S2) 4 Good Extension (L3) 3 Fair PT-OP-T Assessment and Plan Start: 04/27/22 07:26 Freq: Status: Active Protocol: Document 09/07/22 10:35 AMB (Rec: 09/07/22 11:19 AMB [id number]) Physical Therapy Assessment Goals Three Impairment Strength Short Term Goal (STG) Nate will move from sit to stand with even weightbearing to show improved knee strength . 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 07/05/22: progressing: pt stated that can perform 35 squat contact balance back chair with more emphasis of LE but not full Range with body weight with contact chair for support. LTG Duration MET Two Impairment Gait Short Term Goal (STG) Nate will ambulate with AD over smooth surfaces for 5 minutes without antalgic gait. 07/05/22: Goal Met: progressed to walking 200ft decline, 300ft incline elevation 3 miles over the weekend with just sight stick for awareness guidance find edge road. STG Duration 4 weeks GOAL MET 07/05/22 Case Finisher Goal (LTG) Nate will ambulate without AD over uneven terrain for 6 minutes without loss of balance or antalgic gait. 07/05/22: GOAL MET: Able to increase distance with incline /decline 3 miles with just guided stick for awareness edge road. LTG Duration GOAL MET 07/05/22 One Impairment ROM Short Term Goal (STG) Nate will improve his knee flexion range to 110 degrees. STG Duration MET--137 Group Home Goal (LTG) Nate will improve his knee range to neutral extension. missing 3 degrees 07/05/22: GOAL MET: 2 deg relaxed, 0 active extension L knee. LTG Duration GOAL MET 07/05/22 Assessment Summary Assessment Pt is doing well with his ROM and strength. He is now discharged from physical therapy. Would suggest continued distal scar work. Pt is not quite equal in knee flexion but has over 137 degrees of flexion. He still wants to work to improve that. He is independent with his HEP at this time. Physical Therapy Plan Frequency and Duration Frequency of Treatment 1x/Week Duration of treatment (weeks) 1 Plan of Care Start Date 09/01/22 Plan of Care End Date 09/08/22 Therapeutic Interventions Therapeutic Interventions Gait Training,Home Exercise Program,Manual Therapy, Neuromuscular Re-education, Self-Care/Home Management, Therapeutic Activities, Therapeutic Exercises Modalities Cold Pack/Ice Massage,Electric Stimulation Discharge Physical Therapy Discharge Reasons Goals Met
== END 2022-09-14 12:10 | disposition home or self-care (01) ==
LOC: PHYS 10:30
PROVIDERS: Family Provider Family Medicine; PCP Family Medicine; Referring Provider Orthopaedic Surgery; Visit Provider Orthopaedic Surgery
DX: Z96.653 Presence of artificial knee joint, bilateral (principal)
CPT/HCPCS: 97110; 97112; 97140; 97161; 97535

== ENCOUNTER → 2022-10-27 13:58 | Outpatient (CLI) | payer MEDICARE, SELFPAY ==
[2022-10-27 15:53] LABS: Testosterone 639 ng/dL (71.8-623)
== END ==
PROVIDERS: Family Provider Family Medicine; PCP Family Medicine; Referring Provider Urology; Visit Provider Urology
DX: C61 Malignant neoplasm of prostate (principal)
CPT/HCPCS: 36415; 84153; 84403

== ENCOUNTER → 2023-02-15 10:53 | Outpatient (CLI) | payer MEDICARE, SELFPAY ==
--- NOTE | 2023-02-15 10:56 | DI.US.S_ITS ---
PROCEDURE: US ABD AORTA ANEURYSM SCREEN INDICATIONS: HISTORY OF TOBACCO USE TECHNIQUE: Real time scanning was performed of the aorta and iliac arteries, with image documentation. COMPARISON: None. FINDINGS: Aorta: Proximal aortic diameter measures 2.8 cm. Mid-aorta measures 2.1 cm. Distal aortic diameter is 1.9 cm. Iliac arteries: Right common iliac artery measures 1.2 cm. Left common iliac artery measures 1.1 cm. IMPRESSION: Mild proximal aorta ectasia. Five year follow-up recommended. Dictated by: Libra Lam M.D. on 02/15/2023 at 16:05 Approved by: Libra Lam M.D. on 02/15/2023 at 16:05
[2023-02-15 11:30] LABS: Add Manual Diff / Slide Review NO; Basophils Absolute Auto 100 /uL (0-100); Basophils Percent Auto 1.4 % (0-2); Eosinophils Absolute Auto 200 /uL (0-450); Eosinophils Percent Auto 2.9 % (2-4); Hematocrit 45.9 % (41-53); Hemoglobin 15.6 g/dL (13.5-17.5); Lymphocytes Absolute Auto 1800 /uL (1100-4500); Lymphocytes Percent Auto 25.6 % (25-40); Mean Corpuscular HGB Conc 34.1 % (30-36); Mean Corpuscular Hemoglobin 31.6 PG (26-34); Mean Corpuscular Volume 92.8 fL (80-100); Monocytes Absolute Auto 600 /uL (0-900); Monocytes Percent Auto 8.6 % (3-14); Neutrophils Absolute Auto 4500 /uL (1500-7000); Neutrophils Percent Auto 61.5 % (50-75); Platelet Count 299 X10^3/uL (150-400); Red Blood Cell Count 4.94 X10^6/uL (4.5-5.9); Red Cell Distribution Width 13.8 % (11.6-14.8); White Blood Cell Count 7.2 X10^3/uL (4.5-11.0)
[2023-02-15 11:39] LABS: Alanine Aminotransferase 30 IU/L (<50); Albumin 4.5 g/dL (3.5-5.0); Albumin Globulin Ratio 1.5 (1.0-2.8); Alkaline Phosphatase 49 U/L (38-126); Aspartate Aminotransferase 24 IU/L (17-59); BUN Creatinine Ratio 15.6 (6-22); Bilirubin Total 0.4 mg/dL (0.2-1.3); Blood Urea Nitrogen 17 mg/dL (9-20); Calcium 9.2 mg/dL (8.4-10.2); Carbon Dioxide 27 mmol/L (22-32); Chloride 104 mmol/L (98-107); Estimated Glomerular Filt Rate > 60 mL/min (>60); Glucose 114 mg/dL (80-110); HEMOLYSIS < 15 (0-50); Potassium 4.1 mmol/L (3.4-5.1); Sodium 139 mmol/L (137-145); Total Protein 7.5 g/dL (6.3-8.2)
[2023-02-15 15:34] LABS: Vitamin D 25 Hydroxy (D3) 46.5 ng/mL (30.0-100.0)
== END ==
PROVIDERS: Family Provider Family Medicine; PCP Family Medicine; Referring Provider Family Medicine; Visit Provider Family Medicine
DX: I77.811 Abdominal aortic ectasia (principal); E55.9 Vitamin D deficiency, unspecified; C61 Malignant neoplasm of prostate; Z13.6 Encounter for screening for cardiovascular disorders; Z72.0 Tobacco use
CPT/HCPCS: 36415; 76706; 80053; 82306; 85025

== ENCOUNTER → 2023-07-22 11:38 | Outpatient (CLI) | payer MEDICARE, SELFPAY ==
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
== END ==
PROVIDERS: Family Provider Family Medicine; PCP Family Medicine; Referring Provider Physician Assistant; Visit Provider Physician Assistant
DX: M79.605 Pain in left leg (principal)
CPT/HCPCS: 73590

== ENCOUNTER → 2023-11-21 14:06 | Outpatient (CLI) | payer MEDICARE, OTHER, SELFPAY ==
[2023-11-21 15:58] LABS: Prostate Specific Antigen 11.2 ng/mL (0.10-4.00)
== END ==
PROVIDERS: Family Provider Family Medicine; PCP Family Medicine; Referring Provider Student in an Organized Health Care Education/Training Program; Visit Provider Student in an Organized Health Care Education/Training Program
DX: C61 Malignant neoplasm of prostate (principal)
CPT/HCPCS: 36415; 84153

== ENCOUNTER → 2024-06-26 15:24 | Outpatient (CLI) | payer MEDICARE, OTHER, SELFPAY ==
[2024-06-26 16:15] LABS: Hematocrit 42.7 % (41-53); Hemoglobin 14.6 g/dL (13.5-17.5); Mean Corpuscular HGB Conc 34.1 % (30-36); Mean Corpuscular Hemoglobin 31.4 PG (26-34); Mean Corpuscular Volume 92.1 fL (80-100); Platelet Count 259 X10^3/uL (150-400); Red Blood Cell Count 4.64 X10^6/uL (4.5-5.9); Red Cell Distribution Width 13.2 % (11.6-14.8); White Blood Cell Count 5.9 X10^3/uL (4.5-11.0)
[2024-06-26 16:50] LABS: Alanine Aminotransferase 19 IU/L (<50); Albumin 4.4 g/dL (3.5-5.0); Albumin Globulin Ratio 1.8 (1.0-2.8); Alkaline Phosphatase 54 U/L (38-126); Aspartate Aminotransferase 32 IU/L (17-59); Bilirubin Total 0.5 mg/dL (0.2-1.3); Blood Urea Nitrogen 15 mg/dL (9-20); Calcium 9.6 mg/dL (8.4-10.2); Carbon Dioxide 28 mmol/L (22-32); Chloride 104 mmol/L (98-107); Cholesterol 180 mg/dL (140-199); Estimated Glomerular Filt Rate > 60 mL/min (>60); Globulin 2.4 g/dL (1.7-4.1); Glucose 100 mg/dL (80-110); HDL Cholesterol 63 mg/dL (40-60); HEMOLYSIS < 15 (0-50); LDL Cholesterol Calculated 104 mg/dL (<100); Potassium 4.6 mmol/L (3.4-5.1); Sodium 139 mmol/L (137-145); Total Protein 6.8 g/dL (6.3-8.2); Triglycerides 67 mg/dL (35-150)
[2024-06-26 17:01] LABS: Vitamin D 25 Hydroxy (D3) 71.1 ng/mL (30.0-100.0)
[2024-06-26 17:22] LABS: Testosterone 426 ng/dL (71.8-623)
[2024-06-27 10:01] LABS: Hep C Virus Ab w/Reflex Quant NEGATIVE s/c (NEGATIVE)
== END ==
PROVIDERS: Family Provider Family Medicine; PCP Family Medicine; Referring Provider Family Medicine; Visit Provider Family Medicine
DX: C61 Malignant neoplasm of prostate (principal); E78.5 Hyperlipidemia, unspecified; F41.1 Generalized anxiety disorder; R63.4 Abnormal weight loss; E29.1 Testicular hypofunction; Z86.39 Personal history of other endocrine, nutritional and metabolic disease
CPT/HCPCS: 36415; 80053; 80061; 82306; 84403; 85027; 86803

== ENCOUNTER → 2024-12-05 12:23 | Outpatient (CLI) | payer MEDICARE, OTHER, SELFPAY ==
[2024-12-05 13:52] LABS: Prostate Specific Antigen 11.3 ng/mL (0.10-4.00)
== END ==
PROVIDERS: Family Provider Family Medicine; PCP Family Medicine; Referring Provider Student in an Organized Health Care Education/Training Program; Visit Provider Student in an Organized Health Care Education/Training Program
DX: C61 Malignant neoplasm of prostate (principal)
CPT/HCPCS: 36415; 84153